=== PATIENT | male | born 1960 | race Caucasian/White ===

== ENCOUNTER 2020-07-19 08:21 | Outpatient (REF) | payer OTHER, SELFPAY ==
[2020-07-19 09:24] LABS: MANUAL DIFF FLAG NO
[2020-07-19 09:50] LABS: Basophils Absolute Auto 0.1 X10*3/uL (0.0-0.2); Basophils Percent Auto 1.5 % (0-2); Eosinophils Absolute Auto 0.2 X10*3/uL (0.0-0.4); Eosinophils Percent Auto 3.4 % (0-4); Hematocrit 41.7 % (42-52); Hemoglobin 13.4 g/dl (14.0-18.0); Imm Gran Abs Auto 0.01 X10*3/uL (0.00-0.03); Imm Gran Pct Auto 0.2 % (0.0-0.4); Lymphocytes Absolute Auto 1.6 X10*3/uL (1.2-4.9); Lymphocytes Percent Auto 34.5 % (20-40); Mean Corpuscular HGB Conc 32.1 g/dl (31.0-36.0); Mean Corpuscular Hemoglobin 29.4 pg (27.0-33.0); Mean Corpuscular Volume 91.4 fL (80-98); Mean Platelet Volume 9.9 fL (9.4-12.4); Monocytes Absolute Auto 0.4 X10*3/uL (0.1-1.2); Monocytes Percent Auto 7.4 % (2-11); Neutrophils Absolute Auto 2.5 X10*3/uL (2.0-8.3); Platelet Count 196 X10*3/uL (160-400); Red Blood Count 4.56 X10*6/uL (4.60-5.80); Red Cell Distribution Width 13.4 % (11.0-16.0); White Blood Count 4.7 X10*3/uL (4.8-10.8)
[2020-07-19 10:19] LABS: Alanine Aminotransferase 25 U/L (0-40); Albumin Level 4.4 g/dL (3.5-5.0); Alkaline Phosphatase 151 U/L (39-117); Anion Gap 11 (12-20); Aspartate Amino Transferase 25 U/L (5-37); Bilirubin Total 0.4 mg/dL (0.0-1.0); Blood Urea Nitrogen 10 mg/dL (9-16); Calcium 8.7 mg/dL (8.4-10.2); Carbon Dioxide 25 mmol/L (22-29); Chloride 106 mmol/L (96-108); Cholesterol 153 mg/dL; Estimated Glomerular Filt Rate > 60; Glucose Fasting 99 mg/dL (60-99); HDL Cholesterol 31 mg/dL; LDL Cholesterol Calculated 74 mg/dl; Potassium 4.3 mmol/l (3.3-5.1); Sodium 138 mmol/L (135-145); Triglycerides 242 mg/dL
[2020-07-19 10:31] LABS: Thyroid Stimulating Hormone 0.84 mIU/mL (0.32-4.0)
== END 2020-07-19 08:22 | disposition home or self-care (01) ==
LOC: HO.LAB 08:21
PROVIDERS: PCP Internal Medicine; Visit Provider Internal Medicine
DX: I10 Essential (primary) hypertension (principal); E78.00 Pure hypercholesterolemia, unspecified; E03.9 Hypothyroidism, unspecified; M72.2 Plantar fascial fibromatosis
CPT/HCPCS: 36415; 80053; 80061; 84443; 85025

== ENCOUNTER 2020-08-29 15:02 | Outpatient (REF) | payer SELFPAY ==
[2020-08-29 15:46] LABS: Cholesterol 205 mg/dL
[2020-08-29 16:06] LABS: SARS COV2 IgG Negative (Negative)
== END 2020-08-29 15:03 | disposition home or self-care (01) ==
LOC: HO.LNC 15:02
PROVIDERS: Visit Provider Pathology Anatomic Pathology & Clinical Pathology
DX: Z20.828 Contact with and (suspected) exposure to other viral communicable diseases (principal); E78.00 Pure hypercholesterolemia, unspecified
CPT/HCPCS: 82465; 86769

== ENCOUNTER 2021-05-09 08:53 | Outpatient (REF) | payer OTHER, SELFPAY ==
[2021-05-09 09:49] LABS: MANUAL DIFF FLAG NO
[2021-05-09 10:13] LABS: Alanine Aminotransferase 30 U/L (0-40); Albumin Level 4.4 g/dL (3.5-5.0); Alkaline Phosphatase 152 U/L (39-117); Anion Gap 15 (12-20); Aspartate Amino Transferase 26 U/L (5-37); Bilirubin Total 0.3 mg/dL (0.0-1.0); Blood Urea Nitrogen 18 mg/dL (9-16); Calcium 9.3 mg/dL (8.4-10.2); Carbon Dioxide 22 mmol/L (22-29); Chloride 108 mmol/L (96-108); Cholesterol 180 mg/dL; Estimated Glomerular Filt Rate 57; Glucose Fasting 104 mg/dL (60-99); HDL Cholesterol 35 mg/dL; LDL Cholesterol Calculated 108 mg/dl; Potassium 4.5 mmol/L (3.3-5.1); Sodium 140 mmol/L (135-145); Total Protein 7.4 g/dL (6.5-8.0); Triglycerides 186 mg/dL
[2021-05-09 10:29] LABS: Basophils Absolute Auto 0.1 X10*3/uL (0.0-0.2); Basophils Percent Auto 1.5 % (0-2); Eosinophils Absolute Auto 0.2 X10*3/uL (0.0-0.4); Eosinophils Percent Auto 3.5 % (0-4); Hematocrit 41.3 % (42-52); Hemoglobin 13.3 g/dl (14.0-18.0); Imm Gran Abs Auto 0.03 X10*3/uL (0.00-0.03); Imm Gran Pct Auto 0.6 % (0.0-0.4); Lymphocytes Absolute Auto 1.8 X10*3/uL (1.2-4.9); Lymphocytes Percent Auto 32.2 % (20-40); Mean Corpuscular HGB Conc 32.2 g/dl (31.0-36.0); Mean Corpuscular Hemoglobin 29.5 pg (27.0-33.0); Mean Corpuscular Volume 91.6 fL (80-98); Mean Platelet Volume 10.2 fL (9.4-12.4); Monocytes Absolute Auto 0.4 X10*3/uL (0.1-1.2); Monocytes Percent Auto 7.7 % (2-11); Neutrophils Percent Auto 54.5 % (45-73); Platelet Count 234 X10*3/uL (160-400); Red Blood Count 4.51 X10*6/uL (4.60-5.80); Red Cell Distribution Width 13.6 % (11.0-16.0); White Blood Count 5.4 X10*3/uL (4.8-10.8)
[2021-05-09 10:36] LABS: Thyroid Stimulating Hormone 1.72 uIU/mL (0.32-4.0); Vitamin D 25-OH Total 36.8 ng/mL (>30)
[2021-05-11 13:01] LABS: Free Prostate Spec Ag 0.5 ng/mL; Percent Free Prostate Spec Ag 17 % (calc) (>25); Prostate Specific Ag Total 2.9 ng/mL (< OR = 4.0)
== END 2021-05-09 08:54 | disposition home or self-care (01) ==
LOC: HO.LAB 08:53
PROVIDERS: PCP Internal Medicine; Visit Provider Internal Medicine
DX: I10 Essential (primary) hypertension (principal); E78.00 Pure hypercholesterolemia, unspecified; E03.9 Hypothyroidism, unspecified; Z12.5 Encounter for screening for malignant neoplasm of prostate
CPT/HCPCS: 36415; 80053; 80061; 82306; 84154; 84443; 85025

== ENCOUNTER 2022-02-06 10:10 | Outpatient (REF) | payer OTHER, SELFPAY ==
[2022-02-06 10:33] LABS: MANUAL DIFF FLAG NO
[2022-02-06 11:02] LABS: Basophils Absolute Auto 0.1 X10*3/uL (0.0-0.2); Basophils Percent Auto 2.2 % (0-2); Eosinophils Absolute Auto 0.3 X10*3/uL (0.0-0.4); Eosinophils Percent Auto 5.5 % (0-4); Hematocrit 42.7 % (42.0-52.0); Hemoglobin 13.6 g/dl (14.0-18.0); Imm Gran Abs Auto 0.03 X10*3/uL (0.00-0.03); Imm Gran Pct Auto 0.5 % (0.0-0.4); Lymphocytes Percent Auto 34.1 % (20-40); Mean Corpuscular HGB Conc 31.9 g/dl (31.0-36.0); Mean Corpuscular Hemoglobin 28.7 pg (27.0-33.0); Mean Corpuscular Volume 90.1 fL (80.0-98.0); Mean Platelet Volume 9.9 fL (9.4-12.4); Monocytes Absolute Auto 0.5 X10*3/uL (0.1-1.2); Monocytes Percent Auto 7.8 % (2-11); Neutrophils Absolute Auto 2.9 x10*3/uL (2.0-8.3); Neutrophils Percent Auto 49.9 % (45-73); Platelet Count 247 X10*3/uL (160-400); Red Blood Count 4.74 X10*6/uL (4.60-5.80); White Blood Count 5.9 X10*3/uL (4.8-10.8)
[2022-02-06 11:16] LABS: Alanine Aminotransferase 22 U/L (0-40); Albumin Level 4.3 g/dL (3.5-5.0); Alkaline Phosphatase 154 U/L (39-117); Anion Gap 14 (12-20); Aspartate Amino Transferase 20 U/L (5-37); Bilirubin Total 0.3 mg/dL (0.0-1.0); Blood Urea Nitrogen 20 mg/dL (9-16); Calcium 9.5 mg/dL (8.4-10.2); Carbon Dioxide 21 mmol/L (22-29); Chloride 109 mmol/L (96-108); Cholesterol 191 mg/dL; Estimated Glomerular Filt Rate 59; Glucose Fasting 108 mg/dL (60-99); HDL Cholesterol 41 mg/dL; LDL Cholesterol Calculated 120 mg/dl; Potassium 4.6 mmol/L (3.3-5.1); Sodium 139 mmol/L (135-145); Total Protein 7.3 g/dL (6.5-8.0); Triglycerides 151 mg/dL
[2022-02-06 11:38] LABS: Thyroid Stimulating Hormone 4.63 uIU/mL (0.32-4.0)
[2022-02-06 12:01] LABS: Vitamin D 25-OH Total 37.1 ng/mL (>30)
== END 2022-02-06 10:11 | disposition home or self-care (01) ==
LOC: HO.LAB 10:10
PROVIDERS: PCP Internal Medicine; Visit Provider Internal Medicine
DX: I10 Essential (primary) hypertension (principal); E78.00 Pure hypercholesterolemia, unspecified; E03.9 Hypothyroidism, unspecified
CPT/HCPCS: 36415; 80053; 80061; 82306; 84443; 85025

== ENCOUNTER 2022-06-18 14:31 | Outpatient (REF) | payer OTHER, SELFPAY ==
--- NOTE | ~2022-06-18 | CT_ITS ---
EXAMINATION: CT MAXILLOFACIAL WITHOUT CONTRAST CLINICAL INFORMATION: Sleep apnea. Sinus polyps. COMPARISON: None available. TECHNIQUE: Multidetector helical imaging was performed in the axial plane with generation of coronal and sagittal reformatted images. This CT examination was performed using dose optimization techniques as appropriate, variously including the following: *Automated exposure control. *Adjustment of mA and/or kV according to patient size (this includes techniques or standardized protocols for targeted exams where dose is matched to indication/reason for exam; i.e. extremities or head). *Use of iterative reconstruction technique. DLP: 126 mGy-cm FINDINGS: FRONTAL SINUSES AND DRAINAGE PATHWAYS: The frontal sinuses are clear. The frontoethmoidal recesses are partially opacified but patent. MAXILLARY SINUSES AND DRAINAGE PATHWAYS: Mild mucosal thickening of the paranasal sinuses. Small mucous retention cyst within the right maxillary sinus. The maxillary ostia and infundibula are patent. ETHMOID SINUSES: Mild mucosal thickening of the ethmoid air cells. The ethmoid roofs appear symmetric and intact. SPHENOID SINUS AND DRAINAGE PATHWAYS: The sphenoid sinus is clear. The sphenoethmoidal recesses are patent. NASAL PASSAGE: Mild mucosal thickening of the nasal passages. Minimal rightward nasal septal deviation. ADDITIONAL RELEVANT FINDINGS: The lamina papyracea are intact. No demonstrated abnormalities of the orbits. The carotid canals are normally covered by bone. No significant maxillary periapical disease. The temporomandibular joints are normal. The mastoid air cells and middle ear cavities remain well aerated. Limited evaluation of the intracranial structures without significant abnormalities. CT/CT sinus wo IV con IMPRESSION: 1. Mild sinonasal mucosal disease. 2. Minimal rightward nasal septal deviation.
== END 2022-06-18 14:32 | disposition home or self-care (01) ==
LOC: HO.CT 14:31
PROVIDERS: Visit Provider Otolaryngology
DX: J33.8 Other polyp of sinus (principal); G47.30 Sleep apnea, unspecified
CPT/HCPCS: 70486

== ENCOUNTER 2023-01-01 08:28 | Outpatient (REF) | payer OTHER, SELFPAY ==
[2023-01-01 08:49] LABS: MANUAL DIFF FLAG NO
[2023-01-01 09:18] LABS: Basophils Absolute Auto 0.1 X10*3/uL (0.0-0.2); Basophils Percent Auto 1.4 % (0-2); Eosinophils Absolute Auto 0.2 X10*3/uL (0.0-0.4); Eosinophils Percent Auto 3.4 % (0-4); Hematocrit 41.4 % (42.0-52.0); Hemoglobin 13.4 g/dl (14.0-18.0); Imm Gran Abs Auto 0.03 X10*3/uL (0.00-0.03); Imm Gran Pct Auto 0.5 % (0.0-0.4); Lymphocytes Absolute Auto 1.9 X10*3/uL (1.2-4.9); Lymphocytes Percent Auto 34.8 % (20-40); Mean Corpuscular HGB Conc 32.4 g/dl (31.0-36.0); Mean Corpuscular Hemoglobin 29.5 pg (27.0-33.0); Mean Platelet Volume 9.5 fL (9.4-12.4); Monocytes Absolute Auto 0.4 X10*3/uL (0.1-1.2); Monocytes Percent Auto 7.7 % (2-11); Neutrophils Absolute Auto 2.9 x10*3/uL (2.0-8.3); Neutrophils Percent Auto 52.2 % (45-73); Platelet Count 210 X10*3/uL (160-400); Red Blood Count 4.55 X10*6/uL (4.60-5.80); Red Cell Distribution Width 13.7 % (11.0-16.0); White Blood Count 5.6 X10*3/uL (4.8-10.8)
[2023-01-01 09:22] LABS: Appearance Urine Clear; Color Urine Yellow; Glucose Urine UA Negative (Negative); Leukocyte Esterase Urine Moderate (2+) (Negative); Nitrite Urine Negative (Negative); Specific Gravity - Urine 1.015 (1.005-1.025); UMIC TRIGGER UA YES; Urine Blood Negative (Negative); Urine Ketones Negative (Negative); Urine Protein Negative (Neg-Trace)
[2023-01-01 09:27] LABS: Bacteria Urine None Seen (None Seen); Hyaline Casts Urine 0-2 /LPF (0-2); RBC Urine 0-2 /HPF (0-2); Squamous Epithelial Cell Urine 0-2 /HPF (0-2)
[2023-01-01 10:22] LABS: Thyroid Stimulating Hormone 2.02 uIU/mL (0.32-4.0)
[2023-01-01 10:28] LABS: Alanine Aminotransferase 36 U/L (0-40); Albumin Level 4.3 g/dL (3.5-5.0); Alkaline Phosphatase 141 U/L (39-117); Anion Gap 15 (12-20); Aspartate Amino Transferase 33 U/L (5-37); Bilirubin Total 0.5 mg/dL (0.0-1.0); Blood Urea Nitrogen 15 mg/dL (9-16); Calcium 9.4 mg/dL (8.4-10.2); Carbon Dioxide 27 mmol/L (22-29); Chloride 105 mmol/L (96-108); Cholesterol 162 mg/dL; Estimated Glomerular Filt Rate 54; Glucose Fasting 112 mg/dL (60-99); HDL Cholesterol 29 mg/dL; LDL Cholesterol Calculated 84 mg/dl; Potassium 4.5 mmol/L (3.3-5.1); Sodium 142 mmol/L (135-145); Total Protein 7.1 g/dL (6.5-8.0); Triglycerides 249 mg/dL
[2023-01-03 12:33] LABS: Free Prostate Spec Ag 0.9 ng/mL; Percent Free Prostate Spec Ag 23 % (calc) (>25)
== END 2023-01-01 08:29 | disposition home or self-care (01) ==
LOC: HO.LAB 08:28
PROVIDERS: PCP Internal Medicine; Visit Provider Internal Medicine
DX: Z00.00 Encounter for general adult medical examination without abnormal findings (principal); I10 Essential (primary) hypertension; E78.00 Pure hypercholesterolemia, unspecified; E03.9 Hypothyroidism, unspecified
CPT/HCPCS: 36415; 80053; 80061; 81001; 84154; 84443; 85025

== ENCOUNTER 2023-03-01 07:37 | Outpatient (REF) | payer OTHER, SELFPAY ==
--- NOTE | ~2023-03-01 | XR_ITS ---
EXAMINATION: XR HAND, RIGHT CLINICAL INFORMATION: Pain COMPARISON: None available. TECHNIQUE: PA, lateral, and oblique views of the right hand. FINDINGS: No acute fracture or dislocation. Mild degenerative changes of the wrist with subchondral cystic change in the distal ulna. Soft tissues are unremarkable. XR/XR hand RT min 3V IMPRESSION: Mild degenerative changes of the wrist.
== END 2023-03-01 07:38 | disposition home or self-care (01) ==
LOC: HO.HOSX 07:37
PROVIDERS: Visit Provider Orthopaedic Surgery
DX: M79.641 Pain in right hand (principal); R20.0 Anesthesia of skin
CPT/HCPCS: 73130

== ENCOUNTER 2023-03-02 09:28 | Outpatient (REF) | payer OTHER, SELFPAY ==
--- NOTE | 2023-03-02 09:34 | EMG_ITS ---
Please see scanned EMG / Nerve Conduction Report. MTDD
== END 2023-03-02 09:29 | disposition home or self-care (01) ==
LOC: HO.NEURO 09:28
PROVIDERS: PCP Internal Medicine; Visit Provider Orthopaedic Surgery
DX: R20.0 Anesthesia of skin (principal)
CPT/HCPCS: 95885; 95910

== ENCOUNTER 2023-04-12 13:23 | Outpatient (AMB) | payer OTHER, SELFPAY ==
--- NOTE | 2023-04-12 13:26 | A.OFFVIS_ITS ---
Intake Vital Signs 04/12/23 13:34 Height 5 ft 10 in Weight 310 lb BMI 44.5 Intake Visit Reasons: OV- EMG review B/L Intake Note: Guille a 63 year old right hand dominant male presents today for an EMG review of right hand. Patient reports no change in symptoms, he states pain starts in small finger that radiates down to his elbow. Weakness with pinching and gripping. Allergies bee pollen [BEE STINGS] Allergy (Severe, Unverified 04/12/23 13:27) SWELLING LOBSTER Allergy (Severe, Uncoded 04/12/23 13:27) SWELLING HPI OV- EMG review B/L HPI Details Guille is a 63 year old right hand dominant man who presents for a NCS review of his right hand numbness He continues to have pain & numbness in the ulnar aspect of his right arm, extending from his elbow down into his wrist, hand, and small finger. He denies any numbness in the other fingers. He says he either experiences dense numbness or pain in the same areas. He also complains of weakness in his hand with pinch ing and gripping activities. He says this began when he contracted COVID in 08/2022.? PENDING SALE TO [facility] Medical History High cholesterol Hypertension Thyroid condition Social History Patient Tobacco Use Status: Never used Tobacco Current occupational status: retired Current occupation: right hand dominant Physical Exam Vital Signs: BMI result Body Mass Index 44.5 Extrem Other: Evaluation of Right Upper Extremity: The patient is alert, oriented, and in no acute distress Neuro: Dense numbness in the small finger, ulnar half of the ring finger, ulnar half of the hand up to the wrist No thenar or intrinsic wasting Good APB muscle belly firing and good finger cross - Tinel's sign at the elbow Good ABduction & ADduction Vascular: Cap refill brisk ROM: He can make a fist and extend all his digits Nerve Conduction Study Impression: Moderately severe ulnar neuropathy on the right, with demylinative features but no major axonal loss Dr. Cutler 03/02/23 Assessment & Plan Assessment & Plan (1) Cubital tunnel syndrome on right: Code(s): G56.21 - Lesion of ulnar nerve, right upper limb Plan Assessment & Plan: 1. Right Cubital tunnel syndrome, moderate-severe Dense numbness in the small finger, ulnar half of the ring finger, ulnar half of the hand & wrist Normal sensation in the median nerve distribution Since about August 2022 The risks and benefits of operative treatment were discussed with the patient and the patient wishes to proceed with surgery. These risks include, but are not limited to risk of damage to blood vessels, nerves, tendons, infection, recurrence, incomplete relief of preoperative symptoms, persistent pain, possible need for further surgery and the risks associated with regional blocks and anesthesia. The plan is to take the patient to the operating room sometime in the next few weeks for the following procedures: 1. Right cubital tunnel release vs transposition, under general All of the preoperative paperwork including the consent was filled out today. All the patient's questions were answered. The patient understands that they will be contacted by our terminal operations supervisor soon to schedule this procedure He denies Diabetes, blood thinners, asthma, heart, lung, kidney issues Scribed for Raysa Alvarado MD by Keenan Perez, adjunct faculty for medical terminology, on 04/12/23 at 1:50 PM, EST. Coding Level of Care Code Est Pt Level 4 (50831) Diagnoses Cubital tunnel syndrome on right G56.21
[2023-04-12 13:34] VITALS: BMI 44.5
== END 2023-04-12 14:24 | disposition home or self-care (01) ==
PROVIDERS: PCP Internal Medicine; Visit Provider Orthopaedic Surgery
DX: G56.21 Lesion of ulnar nerve, right upper limb (principal)
CPT/HCPCS: 99214

== ENCOUNTER → 2023-04-12 13:23 | Outpatient (BNVA) | payer OTHER, SELFPAY | PROVIDERS: PCP Internal Medicine; Visit Provider Orthopaedic Surgery ==

== ENCOUNTER → 2023-04-25 06:06 | Day surgery (SDC) | payer OTHER, SELFPAY ==
[2023-04-20 14:21] VITALS: BMI 44.5
--- NOTE | 2023-04-22 09:23 | HO.ANESPROP2 ---
Documented by User: Annmarie Birmingham NP 04/22/23 09:27 HPI - Anesthesia Eval Consult details Narrative: 63yo M for Right Cubital Tunnel Release vs transposition PMFSH Active Problems Active Problems: All Active Problems (Updated 04/20/23 @ 14:21 by Denise Harris RN) Numbness of right hand (Acute) Cubital tunnel syndrome on right (Acute) Past Medical History Medical History High cholesterol History of COVID-19 Hypertension Hypothyroid Migraine Sleep apnea Surgical History Surgical History H/O colonoscopy History of esophagogastroduodenoscopy (EGD) Hx of right inguinal hernia repair Social History Social History Patient Tobacco Use Status: Never used Tobacco Second Hand Smoke Exposure: No Use of substances other than those prescribed or required for medical reasons: No Are you DNR?: No Advance Directives: No Advance Directives Information Provided: Yes Advance Directives on File: No Current occupational status: retired Current occupation: right hand dominant Meds Allergies Allergy/AdvReac Type Severity Reaction Status Date / Time bee pollen [BEE STINGS] Allergy Severe SWELLING Verified 04/25/23 07:11 lobster Allergy Severe Swelling Verified 04/25/23 07:11 Home Medications Medication Instructions Recorded Confirmed Last Taken Type aspirin 81 mg tablet,delayed 81 mg PO DAILY 03/01/23 04/20/23 04/18/23 History release (Adult Low Dose Aspirin) atorvastatin 80 mg tablet 80 mg PO DAILY 03/01/23 04/20/23 04/24/23 History mnxsmaciyo-wrmcsandkynfl-lyzwimvv 1 tab PO QID PRN Migraine Headache 03/01/23 04/20/23 04/04/23 History 50 mg-325 mg-40 mg tablet chlorthalidone 50 mg tablet 50 mg PO QAM 03/01/23 04/20/23 04/24/23 History diltiazem HCl 300 mg capsule,24 300 mg PO DAILY 03/01/23 04/20/23 04/25/23 History hr,extended release (Tiadylt ER) fexofenadine 180 mg tablet 180 mg PO DAILY 03/01/23 04/20/2323 History (Allergy Relief (fexofenadine)) gemfibrozil 600 mg tablet 600 mg PO BID 03/01/23 04/20/23 04/24/23 History levothyroxine 150 mcg tablet 150 mcg PO QAM 03/01/23 04/20/23 04/25/23 History lisinopril 40 mg tablet 40 mg PO DAILY 03/01/23 04/20/23 04/24/23 History mometasone 50 mcg/actuation nasal 2 spray intranasal BID 03/01/23 04/20/23 04/24/23 History spray propranolol 60 mg capsule,24 60 mg PO DAILY 03/01/23 04/20/23 04/25/23 History hr,extended release topiramate 50 mg tablet 50 mg PO BID 03/01/23 04/20/23 04/25/23 History Exam Exam Date and Time: April 22, 2023922 Height,Weight and Vital Signs: Height 5 ft 10 in Weight 140.614 kg Pertinent Lab Results Pertinent Lab Results: Laboratory Tests 01/01/23 01/01/23 08:48 08:48 WBC 5.6 Hgb 13.4 L Hct 41.4 L Plt Count 210 Sodium 142 Potassium 4.5 Chloride 105 Carbon Dioxide 27 BUN 15 Creatinine 1.33 Assessment and Plan Assessment Anesthesia Assessment: Chart Reviewed Documented by User: Serena Barragan MD 04/25/23 08:20 PMFSH Past Medical History Medical History High cholesterol History of COVID-19 Hypertension Hypothyroid Migraine Sleep apnea Family History Family history of problems with anesthesia: No Surgical History Surgical History H/O colonoscopy History of esophagogastroduodenoscopy (EGD) Hx of right inguinal hernia repair History of Problems with Anesthesia: Unobtainable Social History Social History Patient Tobacco Use Status: Never used Tobacco Second Hand Smoke Exposure: No Use of substances other than those prescribed or required for medical reasons: No Are you DNR?: No Advance Directives: No Advance Directives Information Provided: Yes Advance Directives on File: No Current occupational status: retired Current occupation: right hand dominant Meds Allergies Allergy/AdvReac Type Severity Reaction Status Date / Time bee pollen [BEE STINGS] Allergy Severe SWELLING Verified 04/25/23 07:11 lobster Allergy Severe Swelling Verified 04/25/23 07:11 Home Medications Medication Instructions Recorded Confirmed Last Taken Type aspirin 81 mg tablet,delayed 81 mg PO DAILY 03/01/23 04/20/23 04/18/23 History release (Adult Low Dose Aspirin) atorvastatin 80 mg tablet 80 mg PO DAILY 03/01/23 04/20/23 04/24/23 History uxhrwsnwby-dfkvleecimjsx-wcamucyx 1 tab PO QID PRN Migraine Headache 03/01/23 04/20/23 04/04/23 History 50 mg-325 mg-40 mg tablet chlorthalidone 50 mg tablet 50 mg PO QAM 03/01/23 04/20/23 04/24/23 History diltiazem HCl 300 mg capsule,24 300 mg PO DAILY 03/01/23 04/20/23 04/25/23 History hr,extended release (Tiadylt ER) fexofenadine 180 mg tablet 180 mg PO DAILY 03/01/23 04/20/23 04/24/23 History (Allergy Relief (fexofenadine)) gemfibrozil 600 mg tablet 600 mg PO BID 03/01/23 04/20/23 04/24/23 History levothyroxine 150 mcg tablet 150 mcg PO QAM 03/01/23 04/20/23 04/25/23 History lisinopril 40 mg tablet 40 mg PO DAILY 03/01/23 04/20/23 04/24/23 History mometasone 50 mcg/actuation nasal 2 spray intranasal BID 03/01/23 04/20/23 04/24/23 History spray propranolol 60 mg capsule,24 60 mg PO DAILY 03/01/23 04/20/23 04/25/23 History hr,extended release topiramate 50 mg tablet 50 mg PO BID 03/01/23 04/20/23 04/25/23 History Exam Airway Mallampati Class: III TM Dist: <=3cm Neck ROM: Limited Heart: rrr Lungs: cta Assessment and Plan Final Anesthetic Review Family History of Problems with Anesthesia: No History of Problems with Anesthesia: Unobtainable ASA Class: III and IV Patient Risk: High Procedure Risk: Low Anesthetic Plan Anesthetic Plan: GA (pt has orthopnea worse past 2 months. cannot breath unless he is sitting completely upright, unable to use CPAP due to SOB , bilateral pedal edema with ulcers , ot supermorbidly obese . he will return after cardiac work up . currentlt no work up done)
[2023-04-25 07:10] VITALS: BP 144/80; PULSE 71; RESP 20; TEMP 36.9; O2SAT 99
[2023-04-25] MEDS: Lactated Ringers 1,000 ML 100 ML IVCONT (07:11)
--- NOTE | 2023-04-25 08:06 | PC.NURSE ---
patient stated he has been having trouble breathing while laying flat at night even with use of CPAP. patient needs to be sitting upright to sleep. Anesthesia at bedside to evaluate. Dr. Alvarado also at bedside. per MD's patient to be rescheduled at this time. patient and aware.
== END ==
LOC: HO.SSS 06:07
PROVIDERS: PCP Internal Medicine; Visit Provider Orthopaedic Surgery
DX: G56.21 Lesion of ulnar nerve, right upper limb (principal); Z53.8 Procedure and treatment not carried out for other reasons; G47.33 Obstructive sleep apnea (adult) (pediatric)
CPT/HCPCS: J0690

== ENCOUNTER 2023-09-05 11:31 | Outpatient (REF) | payer OTHER, SELFPAY ==
[2023-09-05 11:52] LABS: MANUAL DIFF FLAG NO
[2023-09-05 12:37] LABS: Basophils Absolute Auto 0.1 X10*3/uL (0.0-0.2); Basophils Percent Auto 1.3 % (0-2); Eosinophils Absolute Auto 0.2 X10*3/uL (0.0-0.4); Hematocrit 41.1 % (42.0-52.0); Hemoglobin 12.9 g/dl (14.0-18.0); Imm Gran Abs Auto 0.05 X10*3/uL (0.00-0.03); Imm Gran Pct Auto 0.7 % (0.0-0.4); Lymphocytes Absolute Auto 1.8 X10*3/uL (1.2-4.9); Lymphocytes Percent Auto 27.2 % (20-40); Mean Corpuscular HGB Conc 31.4 g/dl (31.0-36.0); Mean Corpuscular Hemoglobin 28.7 pg (27.0-33.0); Mean Corpuscular Volume 91.5 fL (80.0-98.0); Mean Platelet Volume 9.6 fL (9.4-12.4); Monocytes Absolute Auto 0.7 X10*3/uL (0.1-1.2); Monocytes Percent Auto 9.9 % (2-11); Neutrophils Absolute Auto 3.9 x10*3/uL (2.0-8.3); Neutrophils Percent Auto 57.9 % (45-73); Platelet Count 240 X10*3/uL (160-400); Red Blood Count 4.49 X10*6/uL (4.60-5.80); Red Cell Distribution Width 15.2 % (11.0-16.0); White Blood Count 6.7 X10*3/uL (4.8-10.8)
[2023-09-05 13:23] LABS: Alanine Aminotransferase 17 U/L (0-40); Albumin Level 4.1 g/dL (3.5-5.0); Alkaline Phosphatase 127 U/L (39-117); Anion Gap 12 (12-20); Aspartate Amino Transferase 18 U/L (5-37); Bilirubin Total 0.2 mg/dL (0.0-1.0); Blood Urea Nitrogen 32 mg/dL (9-16); Calcium 9.7 mg/dL (8.4-10.2); Carbon Dioxide 28 mmol/L (22-29); Chloride 105 mmol/L (96-108); Estimated Glomerular Filt Rate 48; Glucose Random 99 mg/dL (60-115); Potassium 3.8 mmol/L (3.3-5.1); Sodium 141 mmol/L (135-145); Total Protein 7.5 g/dL (6.5-8.0)
== END 2023-09-05 11:32 | disposition home or self-care (01) ==
LOC: HO.LAB 11:31
PROVIDERS: PCP Internal Medicine; Visit Provider Internal Medicine
DX: I10 Essential (primary) hypertension (principal)
CPT/HCPCS: 36415; 80053; 85025

== ENCOUNTER 2023-09-15 13:47 | Outpatient (AMB) | payer OTHER, SELFPAY ==
[2023-09-15 13:55] VITALS: BP 118/74; PULSE 67; O2SAT 99; BMI 45.4
--- NOTE | 2023-09-15 13:55 | A.OFFVIS_ITS ---
Intake Vital Signs 09/15/23 13:55 Height 5 ft 10 in Weight 316 lb 5.813 oz BMI 45.4 BP 118/74 Blood Pressure Location Lt brachial Position Sitting Pulse 67 Pulse Source Pulse Oximeter Pulse Oximetry (%) 99 Oxygen Delivery Method Room Air Intake Visit Reasons: Obstructive sleep apnea Intake Note: pt is here as a new patient, he is being worked up on why he cannot breath, mostly at night, and some short of breath with walking. He feels like he is being smothered on the inside. Melter Helper Required: No Allergies bee pollen [BEE STINGS] Allergy (Severe, Verified 09/15/23 14:38) SWELLING lobster Allergy (Severe, Verified 09/15/23 14:38) Swelling Medication List - Last Reconciled 09/15/23 by Rafael Goodwin MD aspirin (Adult Low Dose Aspirin) 81 mg PO DAILY atorvastatin 80 mg PO DAILY tiduikoxdl-yissuveglsqwk-vwwl 50-325-40 mg 1 tab PO QID PRN cholecalciferol (vitamin D3) 25 mcg PO DAILY diltiazem HCl ER (Tiadylt ER) 300 mg PO DAILY fexofenadine (Allergy Relief (fexofenadine)) 180 mg PO DAILY furosemide 40 mg PO DAILY gemfibrozil 600 mg PO BID levothyroxine 150 mcg PO QAM lisinopril 40 mg PO DAILY mometasone 50 mcg/actuation 2 sprays intranasal BID mometasone-formoterol 50-5 mcg/actuation 2 puffs inhalation Q12H omega 3-oyj-mfp-fish oil 100-160-1,000 mg (Fish Oil) caps PO propranolol ER 60 mg PO DAILY topiramate 50 mg PO BID Do you need a note to return to daycare/school/sports/work: No HPI Obstructive sleep apnea HPI Details THIS GENTLEMAN IS 63 YEARS OLD MORBIDLY OBESE, PREVIOUSLY KNOWN TO HAVE SEVERE OBSTRUCTIVE SLEEP APNEA. HE USED CPAP FOR 6-8 YEARS AND THEN, HE FELT CONGESTED IN THE CHEST TO THE POINT THAT HE COULD NOT TOLERATE THE CPAP. NOW HE HAS NOT USE THE CPAP FOR THE LAST 3 YEARS OR SO. HE CANNOT SLEEP FLAT, HE IS SLEEPING IN A CHAIR. HE DOES REMAINED TIRED DURING THE DAYTIME THOUGH HE IS MINIMIZING HIS COMPLAINT OF DAYTIME SLEEPINESS. HE REMAINS MORBIDLY OBESE, HE CANNOT DO ANY EXERCISE BECAUSE HE HAS SEVERE LYMPHEDEMA AND STASIS EDEMA OF THE LOWER EXTREMITIES. HE HAS A HUGE BELLY, AND ON ACCOUNT OF THAT HE IS NOT ABLE TO DO MUCH EXERCISE. HE HAS BEEN REFERRED TO SEE ME FOR HELPING HIM. 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 HE SPENDING MOST OF THE DAY AT HOME, SITTING IN THE CHAIR. HE HAS DEVELOPED LOT OF STASIS EDEMA AND LYMPHEDEMA, WITH SOME ULCERATIONS. HE HAS BEEN TREATED AT THE WOUND CLINIC ULCERS HAVE HEALED AND NOW HE USES [facility]ANDAGES FOR COMPRESSION. HE HAD A ECHOCARDIOGRAM AT [facility] THE RESULTS ARE NOT SIGNIFICANT. IT SEEMS TO BE BASICALLY WITHIN NORMAL LIMITS. HE DENIES ANY WHEEZING OR COUGH BUT I DO SUSPECT THAT HE HAS SIGNIFICANT RESTRICTIVE PULMONARY DISORDER [facility] Medical History (Updated 09/15/23 @ 16:50 by Rafael Goodwin MD) Restrictive lung disease MAXI (obstructive sleep apnea) Morbid obesity Sleep apnea History of COVID-19 Migraine Hypothyroid High cholesterol Hypertension Surgical History Hx of right inguinal hernia repair History of esophagogastroduodenoscopy (EGD) H/O colonoscopy Social History Patient Tobacco Use Status: Never used Tobacco Second Hand Smoke Exposure: No Current occupational status: retired Current occupation: right hand dominant Review of Systems Const All systems reviewed & are unremarkable except as noted in HPI and below Eyes Reports no additional complaints ENT Reports nasal congestion and Reports nasal discharge Card Denies chest pain, Denies syncope, Denies irregular heart rhythm, Reports leg ulcers and Reports leg edema Resp Reports as per HPI GI Reports no additional complaints Reports no additional complaints Musc Reports limited range of motion Skin/Breast Reports system reviewed and no additional complaints, except as documented Neuro Reports no additional complaints and Denies syncope Psych Reports no additional complaints Physical Exam Vital Signs: Last Vital Signs Pulse 67 09/15/23 13:55 BP 118/74 09/15/23 13:55 Pulse Ox 99 09/15/23 13:55 Oxygen Delivery Method Room Air 09/15/23 13:55 BMI result Body Mass Index 45.4 This gentleman is morbidly obese with a round face, Sitting upright. Const General: comfortable, no acute distress, alert and awake Orientation/consciousness: patient oriented x3 HEENT Head: Yes normal to inspection General nose exam: No nasal polyps present and No nasal discharge present Face and sinus: Yes sinuses nontender Mouth: oropharynx abnormals (He has very crowded and narrow oropharynx, Mallampati class 4) Throat: Yes posterior oropharynx normal Eyes General: appearance normal, both eyes and all related structures Neck Other: Neck is very obese Neck: Yes normal visual inspection, Yes no lymphadenopathy, Yes trachea midline, Yes no JVD and Yes other (Neck size 20 in) Thyroid: Thyroid normal Chest Chest palpation & inspection: normal inspection of the chest, normal palpation of entire chest wall and no tenderness Resp Other: Percussion note not perceptible because of says thick chest wall Breath sounds are markedly diminished over the lower lobes and especially over. the basilar areas No crepitations or wheezes Cardio Palpation: PMI not normal (Not palpable) Rate: regular rate Rhythm: regular rhythm GI Inspection: Yes other Palpation (GI): Soft to palpation, Tenderness to palpation present (GI), No hepatosplenomegaly present, Palpable mass present and Other GI palpation findings present (Abdomen is grossly obese and protuberant) Auscultation: normal bowel sounds Back/Spine/Pelvis Thoracic/Lumbar Spine: thoracic and lumbar spine normal to inspection and thoraco-lumbar ROM limited Skin General skin exam: no rashes or lesions noted Neuro General: patient oriented x3 and no focal motor deficits Cranial nerves: Yes CN's II-XII intact bilaterally Extrem General: Yes normal to inspection, Yes no calf tenderness and Yes edema (Has marked edema of both lower extremities. Currently dressed with bandage) Psych Appearance: grossly normal and well kempt Speech and movement: Normal speech and movement present Results Reviewed Results Reviewed: Echocardiogram performed at [facility] on 06/06/2023 LV ejection fraction 55-60. Wall thickness of the left ventricle is the slightly increased from before. No definite motion abnormality Assessment & Plan Assessment & Plan (1) Morbid obesity: Comment: Morbid obesity is evident. BMI 45.4. His obesity is predominantly abdominal. It prevents him from lying down flat. So he has been sleeping in the chair. Code(s): E66.01 - Morbid (severe) obesity due to excess calories Plan: Discussed with him, He is aware of his morbid obesity. He cannot join the weight management program. He is just trying to limit his calories intake. He is not able to do any exercise. (2) MAXI (obstructive sleep apnea): Comment: Patient has long-standing history of obstructive sleep apnea, Used CPAP for 6-8 years. He gave up using the CPAP about 3 years ago. Has a reason he states that he felt his lungs were congested and he could not use the CPAP anymore. Code(s): G47.33 - Obstructive sleep apnea (adult) (pediatric) Plan: I had a lengthy discussion with him and his . Without the use of CPAP his prognosis is extremely poor and exposes him to multiple medical problems. He must resort to using CPAP. For getting is CPAP device he would need an up to date sleep study which is being ordered. He is not able to sleep in the bed, he will have to do the study while sleeping in the chair. So instead of doing the sleep study in the sleep lab I have ordered HOME SLEEP STUDY . (3) Restrictive lung disease: Comment: Because of morbid obesity and especially abdominal obesity is a good candidate for restrictive lung disease. Code(s): J98.4 - Other disorders of lung Plan: Pulmonary function test is ordered. He is advised to try to do deep breathing exercises. Orders: Orders RT home sleep study Today E66.01 - Morbid (severe) obesity due to excess calories, G47.33 - Obstructive sleep apnea (adult) (pediatric) PFT pulmonary function test Today E66.01 - Morbid (severe) obesity due to ex cess calories, J98.4 - Other disorders of lung Coding Level of Care Code New Pt Level 4 (14445) Diagnoses Morbid obesity E66.01 MAXI (obstructive sleep apnea) G47.33 Restrictive lung disease J98.4
== END 2023-09-15 14:37 | disposition home or self-care (01) ==
PROVIDERS: PCP Internal Medicine; Referring Provider Internal Medicine; Visit Provider Internal Medicine
DX: E66.01 Morbid (severe) obesity due to excess calories (principal); G47.33 Obstructive sleep apnea (adult) (pediatric); J98.4 Other disorders of lung
CPT/HCPCS: 99204

== ENCOUNTER → 2023-09-15 13:47 | Outpatient (BNVA) | payer OTHER, SELFPAY | PROVIDERS: PCP Internal Medicine; Referring Provider Internal Medicine; Visit Provider Internal Medicine ==

== ENCOUNTER 2023-10-31 13:46 | Outpatient (REF) | payer OTHER, SELFPAY ==
[2023-10-31 08:23] VITALS: PULSE 80; RESP 14; O2SAT 16
--- NOTE | 2023-10-31 14:50 | PFT_ITS ---
Flows: FEV1: 79 % of predicted at 2.74 L FVC: 81 % of predicted at 3.63 L FEV1/FVC: 75 % Bronchodilator response: Present in small to medium airways only Volumes: Total lung capacity: 84 % of predicted at 6.02 L Residual volume: 88 % of predicted at 2.05 L Slow vital capacity: 81 % of predicted at 3.97 L Expiratory reserve volume: 47 % of predicted at 0.60 L Diffusion capacity: Normal Impression: No obstructive or restrictive ventilatory defect. Bronchodilator response present in small to medium airways only. Otherwise, essentially normal pulmonary function test. MTDD
== END 2023-10-31 13:47 | disposition home or self-care (01) ==
LOC: HO.RESP 13:46
PROVIDERS: PCP Internal Medicine; Visit Provider Internal Medicine
DX: J98.4 Other disorders of lung (principal); E66.01 Morbid (severe) obesity due to excess calories
CPT/HCPCS: 94010; 94640; 94727; 94729

== ENCOUNTER → 2023-10-31 13:47 | Outpatient (REF) | payer OTHER, SELFPAY | LOC: HO.SL 13:47 | PROVIDERS: PCP Internal Medicine; Visit Provider Internal Medicine | DX: G47.33 Obstructive sleep apnea (adult) (pediatric) (principal); E66.01 Morbid (severe) obesity due to excess calories | CPT/HCPCS: 95806 ==

== ENCOUNTER → 2023-10-31 15:01 | Outpatient (BNV) | payer OTHER, SELFPAY | PROVIDERS: PCP Internal Medicine; Visit Provider Internal Medicine | DX: R06.83 Snoring (principal) | CPT/HCPCS: 94060; 94727; 94729; 95806 ==

== ENCOUNTER 2023-11-15 14:15 | Outpatient (AMB) | payer OTHER, SELFPAY ==
[2023-11-15 14:27] VITALS: BP 110/70; PULSE 66; O2SAT 95; BMI 46.1
--- NOTE | 2023-11-15 14:27 | A.OFFVIS_ITS ---
Intake Vital Signs 11/15/23 14:27 Height 5 ft 10 in Weight 321 lb BMI 46.1 BP 110/70 Blood Pressure Location Lt brachial Position Sitting Pulse 66 Pulse Source Pulse Oximeter Pulse Oximetry (%) 95 Oxygen Delivery Method Room Air Intake Visit Reasons: Obstructive sleep apnea Intake Note: pt is here for follow up of pft and having little trouble breathing today and having a migraine today, (on medication) Reception Clerk Required: No Allergies bee pollen [BEE STINGS] Allergy (Severe, Verified 11/15/23 14:57) SWELLING lobster Allergy (Severe, Verified 11/15/23 14:57) Swelling Medication List - Last Reconciled 11/15/23 by Rafael Goodwin MD aspirin (Adult Low Dose Aspirin) 81 mg PO DAILY atorvastatin 80 mg PO DAILY jwzvdhckpx-myxkfagwtnmrk-kyhg 50-325-40 mg 1 tab PO QID PRN cholecalciferol (vitamin D3) 25 mcg PO DAILY diltiazem HCl ER (Tiadylt ER) 300 mg PO DAILY fexofenadine (Allergy Relief (fexofenadine)) 180 mg PO DAILY furosemide 40 mg PO TID gemfibrozil 600 mg PO BID levothyroxine 150 mcg PO QAM lisinopril 40 mg PO DAILY mometasone-formoterol 50-5 mcg/actuation 2 puffs inhalation Q12H omega 4-chi-std-fish oil 100-160-1,000 mg (Fish Oil) caps PO propranolol ER 60 mg PO DAILY topiramate 50 mg PO BID Do you need a note to return to daycare/school/sports/work: No HPI Obstructive sleep apnea HPI Details MR. AGUILAR , 63 years old gentleman is here for follow-up. Complains of shortness of breath if he walks up hill or tries to climb stairs, but on level ground he has no problem and he can walk without getting shortness of breath. He denies any attacks of wheezing or cough. Does have mild nasal congestion off and on. Pulmonary function test was performed which is relatively normal. This gentleman is morbidly obese with diagnosis of obstructive sleep apnea but for the last 2 years has not been able to use CPAP. He sleeps in a recliner, can not sleep flat in the bed. He does get about 5-6 hours of sleep and denies daytime sleepiness. He stop using the CPAP about 2 years ago. He feels suffocated when he puts the mask on, He is not in any moved to have repeat sleep study and consider going on CPAP. [facility] Medical History (Updated 11/15/23 @ 15:08 by Rafael Goodwin MD) Shortness of breath Restrictive lung disease MAXI (obstructive sleep apnea) Morbid obesity Sleep apnea History of COVID-19 Migraine Hypothyroid High cholesterol Hypertension Surgical History Hx of right inguinal hernia repair History of esophagogastroduodenoscopy (EGD) H/O colonoscopy Social History Patient Tobacco Use Status: Never used Tobacco Second Hand Smoke Exposure: No Current occupational status: retired Current occupation: right hand dominant Review of Systems Const All systems reviewed & are unremarkable except as noted in HPI and below Eyes Reports no additional complaints ENT Reports nasal congestion and Reports nasal discharge Card Denies chest pain, Denies syncope, Denies irregular heart rhythm, Reports leg ulcers and Reports leg edema Resp Reports as per HPI GI Reports no additional complaints Reports no additional complaints Musc Reports limited range of motion Skin/Breast Reports system reviewed and no additional complaints, except as documented Neuro Reports no additional complaints and Denies syncope Psych Reports no additional complaints Physical Exam Vital Signs: Last Vital Signs Pulse 66 11/15/23 14:27 BP 110/70 11/15/23 14:27 Pulse Ox 95 11/15/23 14:27 Oxygen Delivery Method Room Air 11/15/23 14:27 BMI result Body Mass Index 46.1 This gentleman is morbidly obese with a round face, Sitting upright. Const General: comfortable, no acute distress, alert and awake Orientation/consciousness: patient oriented x3 HEENT Head: Yes normal to inspection General nose exam: No nasal polyps present and No nasal discharge present Face and sinus: Yes sinuses nontender Mouth: oropharynx abnormals (He has very crowded and narrow oropharynx, Mallampati class 4) Throat: Yes posterior oropharynx normal Eyes General: appearance normal, both eyes and all related structures Neck Other: Neck is very obese Neck: Yes normal visual inspection, Yes no lymphadenopathy, Yes trachea midline, Yes no JVD and Yes other (Neck size 20 in) Thyroid: Thyroid normal Chest Chest palpation & inspection: normal inspection of the chest, normal palpation of entire chest wall and no tenderness Resp Other: Percussion note not perceptible because of says thick chest wall Breath sounds are markedly diminished over the lower lobes and especially over. the basilar areas No crepitations or wheezes Cardio Palpation: PMI not normal (Not palpable) Rate: regular rate Rhythm: regular rhythm GI Inspection: Yes other Palpation (GI): Soft to palpation, Tenderness to palpation present (GI), No hepatosplenomegaly present, Palpable mass present and Other GI palpation findings present (Abdomen is grossly obese and protuberant) Auscultation: normal bowel sounds Back/Spine/Pelvis Thoracic/Lumbar Spine: thoracic and lumbar spine normal to inspection and thoraco-lumbar ROM limited Skin General skin exam: no rashes or lesions noted Neuro General: patient oriented x3 and no focal motor deficits Cranial nerves: Yes CN's II-XII intact bilaterally Extrem General: Yes normal to inspection, Yes no calf tenderness and Yes edema (Has mar ked edema of both lower extremities. Currently dressed with bandage) Psych Appearance: grossly normal and well kempt Speech and movement: Normal speech and movement present Results Reviewed Results Reviewed: PULMONARY FUNCTION TEST ON 10/31/2023. FVC 80% FEV1 76% FEV1/FVC RATIO 73. FEF 25--75 = 66% MVV 78%. TLC 84% RESIDUAL VOLUME 88%. DLCO 91 % SURPRISINGLY THERE IS NO SIGNIFICANT OBSTRUCTIVE OR RESTRICTIVE LUNG DISEASE Assessment & Plan Assessment & Plan (1) Morbid obesity: Comment: Morbid obesity is evident. BMI 46. I His obesity is predominantly abdominal. It prevents him from lying down flat. So he has been sleeping in the chair/Recliner Code(s): E66.01 - Morbid (severe) obesity due to excess calories Plan: Patient is not considering to restart the use of CPAP. The best bet would be for him to lose weight., and in the meantime keep on sleeping in the recliner. (2) MAXI (obstructive sleep apnea): Comment: Patient has long-standing history of obstructive sleep apnea, Used CPAP for 6-8 years. He gave up using the CPAP about 2-3 years ago. As a reason he states that he felt his lungs were congested and he could not use the CPAP anymore. Code(s): G47.33 - Obstructive sleep apnea (adult) (pediatric) Plan: Discussed with him , and he would not consider going back to the CPAP. (3) Shortness of breath: Comment: Dyspnea on exertion especially walking up hill or climbing stairs is related to his obesity, He does not have any significant obstructive or restrictive pulmonary disorder at this time. Code(s): R06.02 - Shortness of breath Plan: Told to do deep breathing, exercises to keep his lungs expanding and also stress that he must do some weight reduction. He will continue to follow-up with primary care physician , Dr. Siddhartha Penny And he is welcome to come and see me as needed. Coding Level of Care Code Est Pt Level 3 (27268) Diagnoses Morbid obesity E66.01 MAXI (obstructive sleep apnea) G47.33 Shortness of breath R06.02
== END 2023-11-15 14:54 | disposition home or self-care (01) ==
PROVIDERS: PCP Internal Medicine; Visit Provider Internal Medicine
DX: E66.01 Morbid (severe) obesity due to excess calories (principal); G47.33 Obstructive sleep apnea (adult) (pediatric); R06.02 Shortness of breath
CPT/HCPCS: 99213

== ENCOUNTER → 2023-11-15 14:15 | Outpatient (BNVA) | payer OTHER, SELFPAY | PROVIDERS: PCP Internal Medicine; Visit Provider Internal Medicine ==

== ENCOUNTER 2024-01-13 11:31 | Outpatient (REF) | payer OTHER, SELFPAY ==
[2024-01-13 11:44] LABS: MANUAL DIFF FLAG NO
[2024-01-13 12:19] LABS: Basophils Absolute Auto 0.1 X10*3/uL (0.0-0.2); Basophils Percent Auto 1.9 % (0-2); Eosinophils Absolute Auto 0.2 X10*3/uL (0.0-0.4); Eosinophils Percent Auto 4.1 % (0-4); Hematocrit 40.3 % (42.0-52.0); Hemoglobin 13.1 g/dl (14.0-18.0); Imm Gran Abs Auto 0.03 X10*3/uL (0.00-0.03); Imm Gran Pct Auto 0.5 % (0.0-0.4); Lymphocytes Absolute Auto 1.6 X10*3/uL (1.2-4.9); Lymphocytes Percent Auto 28.2 % (20-40); Mean Corpuscular HGB Conc 32.5 g/dl (31.0-36.0); Mean Corpuscular Hemoglobin 29.8 pg (27.0-33.0); Mean Corpuscular Volume 91.6 fL (80.0-98.0); Mean Platelet Volume 9.7 fL (9.4-12.4); Monocytes Absolute Auto 0.5 X10*3/uL (0.1-1.2); Monocytes Percent Auto 8.3 % (2-11); Neutrophils Absolute Auto 3.3 x10*3/uL (2.0-8.3); Platelet Count 216 X10*3/uL (160-400); Red Cell Distribution Width 14.6 % (11.0-16.0); White Blood Count 5.8 X10*3/uL (4.8-10.8)
[2024-01-13 17:18] LABS: Alanine Aminotransferase 16 U/L (0-40); Albumin Level 4.2 g/dL (3.5-5.0); Alkaline Phosphatase 150 U/L (39-117); Anion Gap 12 (12-20); Aspartate Amino Transferase 19 U/L (5-37); Bilirubin Total 0.3 mg/dL (0.0-1.0); Blood Urea Nitrogen 30 mg/dL (9-16); Calcium 9.4 mg/dL (8.4-10.2); Carbon Dioxide 27 mmol/L (22-29); Chloride 105 mmol/L (96-108); Cholesterol 217 mg/dL (<200); Estimated Glomerular Filt Rate 49; Glucose Fasting 125 mg/dL (60-99); HDL Cholesterol 32 mg/dL (>40); LDL Cholesterol Calculated 131 mg/dL (<100); Potassium 3.7 mmol/L (3.3-5.1); Sodium 140 mmol/L (135-145); Thyroid Stimulating Hormone 1.98 uIU/mL (0.32-4.0); Total Protein 7.7 g/dL (6.5-8.0); Triglycerides 274 mg/dL (<150); Vitamin D 25-OH Total 50.4 ng/mL (>30)
[2024-01-16 10:54] LABS: Free Prostate Spec Ag 0.7 ng/mL; Percent Free Prostate Spec Ag 17 % (calc) (>25); Prostate Specific Ag Total 4.1 ng/mL (< OR = 4.0)
== END 2024-01-13 11:32 | disposition home or self-care (01) ==
LOC: HO.LAB 11:31
PROVIDERS: PCP Internal Medicine; Visit Provider Internal Medicine
DX: Z12.5 Encounter for screening for malignant neoplasm of prostate (principal); C61 Malignant neoplasm of prostate; E78.00 Pure hypercholesterolemia, unspecified; I10 Essential (primary) hypertension; E03.9 Hypothyroidism, unspecified; E66.01 Morbid (severe) obesity due to excess calories
CPT/HCPCS: 36415; 80053; 80061; 82306; 84154; 84443; 85025

== ENCOUNTER 2024-07-20 11:40 | Outpatient (REF) | payer OTHER, SELFPAY ==
[2024-07-20 11:54] LABS: MANUAL DIFF FLAG NO
[2024-07-20 12:20] LABS: Basophils Absolute Auto 0.1 X10*3/uL (0.0-0.2); Basophils Percent Auto 1.4 % (0-2); Eosinophils Absolute Auto 0.2 X10*3/uL (0.0-0.4); Eosinophils Percent Auto 3.5 % (0-4); Hematocrit 38.5 % (42.0-52.0); Hemoglobin 12.6 g/dl (14.0-18.0); Imm Gran Abs Auto 0.03 X10*3/uL (0.00-0.03); Imm Gran Pct Auto 0.6 % (0.0-0.4); Lymphocytes Absolute Auto 1.4 X10*3/uL (1.2-4.9); Lymphocytes Percent Auto 28.7 % (20-40); Mean Corpuscular HGB Conc 32.7 g/dl (31.0-36.0); Mean Corpuscular Hemoglobin 29.4 pg (27.0-33.0); Mean Platelet Volume 9.6 fL (9.4-12.4); Monocytes Absolute Auto 0.4 X10*3/uL (0.1-1.2); Monocytes Percent Auto 8.3 % (2-11); Neutrophils Absolute Auto 2.8 x10*3/uL (2.0-8.3); Neutrophils Percent Auto 57.5 % (45-73); Platelet Count 202 X10*3/uL (160-400); Red Blood Count 4.28 X10*6/uL (4.60-5.80); Red Cell Distribution Width 14.1 % (11.0-16.0); White Blood Count 4.9 X10*3/uL (4.8-10.8)
[2024-07-20 12:55] LABS: Alanine Aminotransferase 26 U/L (0-40); Albumin Level 4.3 g/dL (3.5-5.0); Alkaline Phosphatase 144 U/L (39-117); Anion Gap 13 (12-20); Aspartate Amino Transferase 46 U/L (5-37); Bilirubin Total 0.4 mg/dL (0.0-1.0); Blood Urea Nitrogen 22 mg/dL (9-16); Carbon Dioxide 28 mmol/L (22-29); Chloride 103 mmol/L (96-108); Cholesterol 178 mg/dL (<200); Estimated Glomerular Filt Rate 47; Glucose Fasting 121 mg/dL (60-99); HDL Cholesterol 32 mg/dL (>40); LDL Cholesterol Calculated 94 mg/dL (<100); Potassium 3.9 mmol/L (3.3-5.1); Sodium 140 mmol/L (135-145); Total Protein 7.8 g/dL (6.5-8.0); Triglycerides 263 mg/dL (<150)
[2024-07-20 13:11] LABS: Thyroid Stimulating Hormone 1.23 uIU/mL (0.32-4.0)
== END 2024-07-20 11:41 | disposition home or self-care (01) ==
LOC: HO.LAB 11:40
PROVIDERS: PCP Internal Medicine; Visit Provider Internal Medicine
DX: I10 Essential (primary) hypertension (principal); E78.00 Pure hypercholesterolemia, unspecified; E03.9 Hypothyroidism, unspecified
CPT/HCPCS: 36415; 80053; 80061; 84443; 85025

== ENCOUNTER 2024-09-13 10:28 | Outpatient (AMB) | payer OTHER, SELFPAY ==
--- NOTE | 2024-09-13 10:33 | A.OFFVIS_ITS ---
Vital Signs 09/13/24 10:34 Height 5 ft 10 in Weight 334 lb 0.005 oz BMI 47.9 BP 138/90 H Blood Pressure Location Lt brachial Position Sitting Pulse 69 Pulse Source Pulse Oximeter Pulse Oximetry (%) 100 Oxygen Delivery Method Room Air Intake Visit Reasons: colonscopy Intake Note: pt is here for pre-op clearance by Dr. Church possibly beginning of 2024. pt states he was sent here because he cannot lie flat he cannot breath. sleeps in recliner Doping Supervisor Required: No Allergies bee pollen [BEE STINGS] Allergy (Severe, Verified 09/13/24 10:51) SWELLING lobster Allergy (Severe, Verified 09/13/24 10:51) Swelling Medication List - Last Reconciled 09/13/24 by Rafael Goodwin MD aspirin (Adult Low Dose Aspirin) 81 mg PO DAILY atorvastatin 80 mg PO DAILY wvjbhbnwmg-ymozhbeesrwkf-qbes 50-325-40 mg 1 tab PO QID PRN cholecalciferol (vitamin D3) 25 mcg PO DAILY diltiazem HCl ER (Tiadylt ER) 300 mg PO DAILY fexofenadine (Allergy Relief (fexofenadine)) 180 mg PO DAILY furosemide 40 mg PO TID gemfibrozil 600 mg PO BID levothyroxine 150 mcg PO QAM lisinopril 40 mg PO DAILY omega 5-gjj-qnk-fish oil 100-160-1,000 mg (Fish Oil) caps PO propranolol ER 60 mg PO DAILY topiramate 50 mg PO BID Do you need a note to return to daycare/school/sports/work: No HPI HPI colonscopy: Details: This 64 years old gentleman, comes for pulmonary clearance, because he has to undergo colonoscopy. His main complaint is that he gets short of breath on lying down flat, especially if in supine position. Guille was seen by me about a year ago with history of obstructive sleep apnea. He was not able to tolerate the CPAP and hence gave it up. He did have shortness of breath on exertion but his pulmonary function test in October 2023 was WNL. . He also had a repeat sleep study in October 2023, which did not show any evidence of obstructive sleep apnea. At that time he had lost some weight. DOES HAVE SYMPTOMS OF THE NASAL CONGESTION ALMOST ON A DAILY BASIS, AND USES MOMETASONE NASAL SPRAY WELL FEXOFENADINE 180 MG ONCE A DAY P.R.N.. At present he denies any cough or wheezing , denies any shortness of breath as long as he is in upright position. He has been sleeping in a recliner. Main complaint again is that he gets short of breath if he lies flat. He has gained lot of weight in the past 1 year, according to of records he has put on about 13 lb of weight. Most of the weight gain is in the belly and lower extremities. He does not have any open ulcers on the legs but does use Tal bandages for compression. Currently he is also on furosemide 40 mg 3 times a day. Along with that he is also on diltiazem HCL 300 mg daily, which may be causing some of his stasis edema of the legs. [facility] Medical History (Updated 09/13/24 @ 11:17 by Rafael Goodwin MD) Allergic rhinitis Orthopnea Shortness of breath Restrictive lung disease MAXI (obstructive sleep apnea) Morbid obesity Sleep apnea History of COVID-19 Migraine Hypothyroid High cholesterol Hypertension Surgical History Hx of right inguinal hernia repair History of esophagogastroduodenoscopy (EGD) H/O colonoscopy Social History Patient Tobacco Use Status: Never used Tobacco Second Hand Smoke Exposure: No Current occupational status: retired Current occupation: right hand dominant Review of Systems Const All systems reviewed & are unremarkable except as noted in HPI and below Eyes Reports no additional complaints ENT Reports nasal congestion (mild intermittent ) and Reports nasal discharge Card Denies chest pain, Denies syncope, Denies irregular heart rhythm, Reports leg ulcers and Reports leg edema (++) Resp Reports as per HPI GI Reports no additional complaints Reports no additional complaints Musc Reports limited range of motion Skin/Breast Reports system reviewed and no additional complaints, except as documented Neuro Reports no additional complaints and Denies syncope Psych Reports no additional complaints Physical Exam Vital Signs: Last Vital Signs Pulse 69 09/13/24 10:34 BP 138/90 H 09/13/24 10:34 Pulse Ox 100 09/13/24 10:34 Oxygen Delivery Method Room Air 09/13/24 10:34 BMI result Body Mass Index 47.9 This gentleman is morbidly obese with a round face, Sitting upright. Const General: comfortable (while sitting up right ), no acute distress, alert and awake Orientation/consciousness: patient oriented x3 HEENT Head: Yes normal to inspection General nose exam: No nasal polyps present and No nasal discharge present Face and sinus: Yes sinuses nontender Mouth: oropharynx abnormals (He has very crowded and narrow oropharynx, Mallampati class 4) Throat: Yes posterior oropharynx normal Eyes General: appearance normal, both eyes and all related structures Neck Other: Neck is very obese Neck: Yes normal visual inspection, Yes no lymphadenopathy, Yes trachea midline, Yes no JVD and Yes other (Neck size 20 in) Thyroid: Thyroid normal Chest Chest palpation & inspection: normal inspection of the chest, normal palpation of entire chest wall and no tenderness Resp Other: Percussion note not perceptible because of thick chest wall Breath sounds are markedly diminished over the lower lobes and especially over the basilar areas No crepitations or wheezes Cardio Palpation: PMI not normal (Not palpable) Rate: regular rate Rhythm: regular rhythm Heart sounds: no gallops and no murmurs GI Inspection: Yes other Palpation (GI): Soft to palpation, Tenderness to palpation present (GI), No hepatosplenomegaly present, Palpable mass present and Other GI palpation findings present (Abdomen is grossly obese and protuberant) Auscultation: normal bowel sounds Back/Spine/Pelvis Thoracic/Lumbar Spine: thoracic and lumbar spine normal to inspection and thoraco-lumbar ROM limited Skin General skin exam: no rashes or lesions noted Neuro General: patient oriented x3 and no focal motor deficits Cranial nerves: Yes CN's II-XII intact bilaterally Extrem General: Yes normal to inspection, Yes no calf tenderness and Yes edema (Has marked edema of both lower extremities.Currently dressed with bandages) Psych Appearance: grossly normal and well kempt Speech and movement: Normal speech and movement present Results Reviewed Results Reviewed: PULMONARY FUNCTION TEST ON 10/31/2023 , WAS WITHIN NORMAL LIMITS EXCEPT FOR A VERY MILD DEGREE OF RESTRICTIVE LUNG DISORDER. SPIROMETRY TODAY ; HOME-BASED SLEEP STUDY ON WAS NEGATIVE FOR ANY SLEEP APNEA AND ALSO SNORING WAS MINIMAL Assessment & Plan Assessment & Plan (1) Morbid obesity: Comment: Morbid obesity is evident. BMI 47.9 His obesity is predominantly abdominal. It prevents him from lying down flat. So he has been sleeping in the chair/Recliner Code(s): E66.01 - Morbid (severe) obesity due to excess calories Category: Medical Plan: DISCUSSED ABOUT THE OBESITY AT LENGTH. A GREAT EXTENT IT IS EXACERBATED BY FLUID RETENTION. HE NEEDS TO SEE CARDIOLOGY SERVICE, FOR ADJUSTMENT IN HIS DIURETIC THERAPY (2) Restrictive lung disease: Comment: Because of morbid obesity and especially abdominal obesity is a good candidate for restrictive lung disease. THE SPIROMETRY HOWEVER SHOWS ONLY MILD DEGREE OF RESTRICTIVE DISORDER TLC=78 % Code(s): J98.4 - Other disorders of lung Category: Medical Plan: EXPLAINED ABOUT THE RESTRICTIVE PART. GIVEN INCENTIVE SPIROMETRY DEVICE , ADVISED TO DO DEEP BREATHING EXERCISES EVERY FEW HOURS WHILE AWAKE. (3) Orthopnea: Comment: PATIENT HAS DIFFICULTY IN LYING FLAT, ESPECIALLY IN SUPINE POSITION. THIS IS AGGRAVATED BY ADDITIONAL FLUID RETENTION. FOR MANY YEARS HE HAS BEEN SLEEPING IN A RECLINER. Code(s): R06.01 - Orthopnea Category: Medical Plan: I THINK IT IS OKAY FOR HIM TO SLEEP IN A RECLINER, AND PROPPED UP POSITION. KNOWING THAT IT AGGRAVATES HIS STASIS EDEMA OF THE LOWER EXTREMITY. (4) Allergic rhinitis: Comment: HAS CHRONIC MILD ALLERGIC RHINITIS. CONTROLLED WITH NASAL SPRAY AND FEXOFENADINE Code(s): J30.9 - Allergic rhinitis, unspecified Category: Medical Plan: OK TO CONTINUE USING FEXOFENADINE 180 MG P.O. ONCE A DAY P.R.N. AND MOMETASONE NASAL SPRAY 2 SPRAYS IN EACH NOSTRIL B.I.D.. Plan * NOTE : FAR PULMONARY CLEARANCE FOR COLONOSCOPY IS CONCERNED, THERE IS NO CONTRAINDICATION. HOWEVER HIS ISSUE IS THAT HE HAS DIFFICULTY IN LYING DOWN FLAT ESPECIALLY IN SUPINE POSITION, SO ARRANGEMENTS SHOULD BE MADE THAT THE PROCEDURE COULD BE DONE IN A RELATIVELY PROPPED UP POSITION . FOR HIS ORTHOPNEA HE NEEDS TO SEE CARDIOLOGY SERVICE AND FOR OPTIMIZATION OF DIURETIC THERAPY. Coding Level of Care Code Est Pt Level 4 (61331) Diagnoses Morbid obesity E66.01 Restrictive lung disease J98.4 Orthopnea R06.01 Allergic rhinitis J30.9
[2024-09-13 10:34] VITALS: BP 138/90; PULSE 69; O2SAT 100; BMI 47.9
== END 2024-09-13 11:12 | disposition home or self-care (01) ==
PROVIDERS: PCP Internal Medicine; Visit Provider Internal Medicine
DX: E66.01 Morbid (severe) obesity due to excess calories (principal); J98.4 Other disorders of lung; R06.01 Orthopnea; J30.9 Allergic rhinitis, unspecified
CPT/HCPCS: 99214

== ENCOUNTER → 2024-09-13 10:28 | Outpatient (BNVA) | payer OTHER, SELFPAY | PROVIDERS: PCP Internal Medicine; Visit Provider Internal Medicine ==

== ENCOUNTER 2024-11-19 15:26 | Outpatient (AMB) | payer OTHER, SELFPAY ==
[2024-11-19 15:30] VITALS: BP 136/82; PULSE 97; O2SAT 96; BMI 47.6
--- NOTE | 2024-11-19 15:30 | A.OFFVIS_ITS ---
Vital Signs 11/19/24 15:30 Height 5 ft 10 in Weight 332 lb BMI 47.6 BP 136/82 Blood Pressure Location Lt brachial Position Sitting Pulse 97 Pulse Source Doppler Pulse Oximetry (%) 96 Oxygen Delivery Method Room Air Intake Visit Reasons: pre-op dr og Allergies bee pollen [BEE STINGS] Allergy (Severe, Verified 11/19/24 15:35) SWELLING lobster Allergy (Severe, Verified 11/19/24 15:35) Swelling Medication List - Last Reconciled 11/19/24 by Rafael Goodwin MD aspirin (Adult Low Dose Aspirin) 81 mg PO DAILY atorvastatin 80 mg PO DAILY xomxfcmaax-urlwjlyhcelct-nree 50-325-40 mg 1 tab PO QID PRN cholecalciferol (vitamin D3) 25 mcg PO DAILY diltiazem HCl ER (Tiadylt ER) 300 mg PO DAILY fexofenadine (Allergy Relief (fexofenadine)) 180 mg PO DAILY furosemide 40 mg PO TID gemfibrozil 600 mg PO BID levothyroxine 150 mcg PO QAM lisinopril 40 mg PO DAILY mometasone 50 mcg/actuation 2 sprays intranasal BID omega 3-qha-lgd-fish oil 100-160-1,000 mg (Fish Oil) caps PO propranolol ER 60 mg PO DAILY topiramate 50 mg PO BID Do you need a note to return to daycare/school/sports/work: No HPI HPI pre-op dr og: Details: This 64 years old gentleman comes once again for pulmonary clearance, because he has to undergo colonoscopy. His main complaint is that he gets short of breath on lying down flat, especially if in supine position. Guille was seen by me in Aug 2024 for the same reason . About 2 years ago he was diagnosed to have obstructive sleep apnea, but He was not able to tolerate the CPAP and hence gave it up. He did have shortness of breath on exertion but his pulmonary function test in October 2023 was WNL. . He also had a repeat sleep study in October 2023, which did not show any evidence of obstructive sleep apnea. This study was done in a sitting position, as he can not lie down flat. At that time he had lost some weight. Mr. Villalta has symptoms of nasal congestion and postnasal discharge for long time due to allergic rhinitis. He uses the mometasone nasal spray daily and also uses fexofenadine 180 mg once a day, to control his nasal symptoms. At present he denies any cough or wheezing , denies any shortness of breath as long as he is in upright position. He has been sleeping in a recliner. Main complaint again is that he gets short of breath if he lies flat. He remains grossly overweight. He has chronic stasis edema of both lower extremities . But does not have any open ulcers on the legs . He uses compressive stockings and bandages on the legs every day. Currently he is also on furosemide 40 mg 3 times a day, the 3rd does he takes in the evening and that makes him wake up a few times during the night. Along with that he is also on diltiazem HCL 300 mg daily, which may be causing some of his stasis edema of the legs. Today He came walking without any shortness of breath . He denies any. cough wheezing or chest pain He claims that he sleeps well as long as he sleeps in the recliner. Was gain when I asked him about possibility of lying down flat for colonoscopy he say is he would not be able to do that, may be in his semi reclined position he will be okay. [facility]LY [facility], [facility] Medical History Positive colorectal cancer screening using Cologuard test (07/27/24) Allergic rhinitis Orthopnea Shortness of breath Restrictive lung disease MAXI (obstructive sleep apnea) Morbid obesity Sleep apnea History of COVID-19 Migraine Hypothyroid High cholesterol Hypertension Surgical History Hx of right inguinal hernia repair History of esophagogastroduodenoscopy (EGD) H/O colonoscopy Social History Patient Tobacco Use Status: Never used Tobacco Second Hand Smoke Exposure: No Current occupational status: retired Current occupation: right hand dominant Review of Systems Const All systems reviewed & are unremarkable except as noted in HPI and below Eyes Reports no additional complaints ENT Reports nasal congestion (mild intermittent ) and Reports nasal discharge Card Denies chest pain, Denies syncope, Denies irregular heart rhythm, Reports leg ulcers and Reports leg edema (++) Resp Reports as per HPI GI Reports no additional complaints Reports no additional complaints Musc Reports limited range of motion Skin/Breast Reports system reviewed and no additional complaints, except as documented Neuro Reports no additional complaints and Denies syncope Psych Reports no additional complaints Physical Exam Vital Signs: Last Vital Signs Pulse 97 11/19/24 15:30 BP 136/82 11/19/24 15:30 Pulse Ox 96 11/19/24 15:30 Oxygen Delivery Method Room Air 11/19/24 15:30 BMI result Body Mass Index 47.6 This gentleman is morbidly obese with a round face, Sitting upright. Const General: comfortable (while sitting up right ), no acute distress, alert and awake Orientation/consciousness: patient oriented x3 HEENT Head: Yes normal to inspection General nose exam: No nasal polyps present and No nasal discharge present Face and sinus: Yes sinuses nontender Mouth: oropharynx abnormals (He has very crowded and narrow oropharynx, Mallampati class 4) Throat: Yes posterior oropharynx normal Eyes General: appearance normal, both eyes and all related structures Neck Other: Neck is very obese Neck: Yes normal visual inspection, Yes no lymphadenopathy, Yes trachea midline, Yes no JVD and Yes other (Neck size 20 in) Thyroid: Thyroid normal Chest Chest palpation & inspection: normal inspection of the chest, normal palpation of entire chest wall and no tenderness Resp Other: Percussion note not perceptible because of thick chest wall Breath sounds are markedly diminished over the lower lobes and especially over the basilar areas No crepitations or wheezes Cardio Palpation: PMI not normal (Not palpable) Rate: regular rate Rhythm: regular rhythm Heart sounds: no gallops and no murmurs GI Inspection: Yes other Palpation (GI): Soft to palpation, Tenderness to palpation present (GI), No hepatosplenomegaly present, Palpable mass present and Other GI palpation findings present (Abdomen is grossly obese and protuberant) Auscultation: normal bowel sounds Back/Spine/Pelvis Thoracic/Lumbar Spine: thoracic and lumbar spine normal to inspection and thoraco-lumbar ROM limited Skin General skin exam: no rashes or lesions noted Neuro General: patient oriented x3 and no focal motor deficits Cranial nerves: Yes CN's II-XII intact bilaterally Extrem General: Yes normal to inspection, Yes no calf tenderness and Yes edema (Has marked edema of both lower extremities.Currently dressed with bandages) Psych Appearance: grossly normal and well kempt Speech and movement: Normal speech and movement present Assessment & Plan Assessment & Plan (1) Morbid obesity: Comment: Morbid obesity is evident. BMI 47.6 His obesity is predominantly abdominal. It prevents him from lying down flat. So he has been sleeping in the chair/Recliner Code(s): E66.01 - Morbid (severe) obesity due to excess calories Category: Medical Plan: He has been chronically obese and is difficult for him to lose weight, as he is not able to do much exercise. Advised to cut down the calories intake as much as possible. (2) Restrictive lung disease: Comment: Because of morbid obesity and especially abdominal obesity , he is a good candidate for restrictive lung disease. THE SPIROMETRY HOWEVER SHOWED ONLY MILD DEGREE OF RESTRICTIVE DISORDER TLC=78 % Code(s): J98.4 - Other disorders of lung Category: Medical Plan: He is advised to keep on doing deep breathing exercises at least 3 times a day. (3) MAXI (obstructive sleep apnea): Comment: Patient has long-standing history of obstructive sleep apnea, Used CPAP for 6-8 years. He gave up using the CPAP about 3 years ago. He states that when he try to use CPAP he felt his lungs were congested . He claims that as long as he is sitting and sleeping in a recliner he has no issue and sleeps well. Code(s): G47.33 - Obstructive sleep apnea (adult) (pediatric) Category: Medical Plan: I still stress that he has to lose significant amount of weight. He can continue to sleep in the recliner, if it makes his sleeping better. (4) Allergic rhinitis: Comment: HAS CHRONIC MILD ALLERGIC RHINITIS. CONTROLLED WITH NASAL SPRAY AND FEXOFENADINE Code(s): J30.9 - Allergic rhinitis, unspecified Category: Medical Plan: Continue to use mometasone nasal spray 1 spray in each nostril daily. Also may use fexofenadine 180 mg once a day p.r.n. Plan * FAR CLEARANCE FOR COLONOSCOPY IS CONCERNED I WOULD AGAIN SAY THAT HE CAN UNDERGO COLONOSCOPY. FROM PULMONARY POINT OF VIEW THERE IS NO CONTRAINDICATION. DURING THE PROCEDURE , HE MAY USE O2 SUPPLEMENTATION TO ALLEVIATE HIS SHORTNESS OF BREATH. HE AGAIN REITERATES THAT HE WOULD NOT BE ABLE TO LIE DOWN FLAT . SO IF POSSIBLE HE MAY BE KEPT IN A SOME MY PROPPED UP POSITION, DURING THE PROCEDURE. Coding Level of Care Code Est Pt Level 4 (95329) Diagnoses Morbid obesity E66.01 Restrictive lung disease J98.4 MAXI (obstructive sleep apnea) G47.33 Allergic rhinitis J30.9
--- OUTSIDE RECORDS SUMMARY | 2024-11-19 17:43 | XMS_ITS ---
Author Organization [facility] Address [address] [place] [address] Care Team Providers Care Business Planner Name Role Phone CAMRON RAZA Primary Care Provider Siddhartha Plascencia Unavailable [phone] Encounters Encounter Location Date Provider Diagnosis [facility] [address] [place] [phone] 10/28/2024 Siddhartha Church PLAN OF TREATMENT Next Appt Details Provider Name:Siddhartha Church , 12/10/2024 09:30:00 AM, [address] [place] [address] , [place], [place], [phone],
--- OUTSIDE RECORDS SUMMARY | 2024-11-19 17:43 | XMS_ITS ---
Author Organization [facility] Address [address] [place] [phone] Care Team Providers Care Nurse Head Name Role Phone LUZ MARINA, CAMRON Primary Care Provider Siddhartha Plascencia Unavailable [phone] ALLERGIES Allergen (clinical drug ingredient) Drug/Non Drug Allergy documented on EMR Reaction Allergy Type Onset Date Status Bee Sting Unknown Allergy Active Shellfish (FN) lobster (uncoded) Unknown Allergy Active REASON FOR VISIT positive cologuard MEDICATIONS Medication SIG (Take, Route, Frequency, Duration) Notes Start Date End Date Status Gemfibrozil 600 MG TAKE 1 TABLET BY WILLY TWICE DAILY Oral for 30 Active Mometasone Furoate 50 MCG/ACT SHAKE LIQUID AND USE 2 SPRAYS IN EACH NOSTRIL TWICE DAILY Diagnosis Unavailable Nasal for 15 Active Propranolol HCl ER 60 MG TAKE 1 CAPSULE BY MOUTH EVERY DAY Oral for 30 Active Xogmeouxei-TNGB-Zmaxpmxn 50-325-40 MG TAKE 1 TABLET BY MOUTH FOUR TIMES DAILY FOR 10 DAYS NEEDED Oral for 10 Active Levothyroxine Sodium 150mcg 1 po qd Active Atorvastatin Calcium 80mg 1 po qd Active Lisinopril 40mg 1 po qd Acti ve Topiramate 50 MG 1 tablet in am 2 tab lets in pm Orally Twice a day/prn migraines Active Aspirin 81mg 1 po qam Active Furosemide 40 MG 1 tablet Orally Once a day for 30 day(s) Active Tiadylt ER 300 MG 1 capsule Orally Onc e a day for 30 day(s) Active Vitamin D3 25 MCG (1000 UT) 1 tablet Ora lly Once a day for 30 day(s) Active Ibuprofen 800 MG 1 tablet with food o r milk as needed Orally every 8 hrs Active Multivitamin - 1 tablet Orally Once a day for 30 day(s) Active Fexofenadine HCl 180 MG 1 tablet Orally Once a day Active Fish Oil Active PROBLEMS Problem Type ICD Code Onset Dates Problem Status W/U Status Risk SNOMED Code Notes Problem Positive colorectal cancer screening using Cologuard test (R19.5) Active confirmed Abnormal feces (742980469) Problem Personal history of colonic polyps (Z86.010) Active confirmed History of polyp of colon (situation) (795387565) VITAL SIGNS Blood pressure systolic 00 mm Hg 10/02/19 25 Blood pressure diastolic 00 mm Hg 025 Height 70.5 in 10/02/2024 Weight 336 lbs 10/02/2024 BMI 47.52 kg/m2 10/02/2024 Encounters Encounter Location Date Provider Diagnosis [facility] [address] [place] [address] 10/02/2024 Siddhartha Church Positive colorectal cancer screening using Cologuard test R19.5 and Personal history of colonic polyps Z86.010 ASSESSMENTS Encounter Date Diagnosis Assessment Notes Treatment Notes Treatment Clinical Notes 10/02/2024 Positive colorectal cancer screening using Cologuard test (ICD-10 - R19.5) Stop fish oil and aspirin for 5 days before the colonoscopy Do not take the furosemide the day before or on the day of the colonoscopy We will need clearance form Dr. Goodwin and [facility]iology(has an appt on 10/04/24) 10/02/2024 Personal history of colonic polyps (ICD-10 - Z86.010) PLAN OF TREATMENT Treatment Notes Assessment Notes Positive colorectal cancer s creening using Cologuard test Stop fish oil and aspirin for 5 days before the colonoscopy Do not take the furosemide the day before or on the day of the colonoscopy We will need clearance form Dr. Goodwin and [facility] Cardiology(has an appt on 10/04/24) Future Test Test Name Order Date COLONOSCOPY 10/02/2024 Next Appt Details Follow Up: prn, Reason: Provider Name:Siddhartha Church , 12/10/2024 09:30:00 AM, [address] [place] [address] , [place], [place], [phone], Progress Notes * Examination Category Sub-Category Detail Notes General Examination GENERAL APPEARANCE: pleasant , well nourished, well developed, in no acute distress EYES: sclera non-icteric NECK/THYROID: no cervical lymphade nopathy, neck supple HEART: S1, S2 normal LUNGS: clear to auscultatio n bilaterally ABDOMEN: normal bowel sounds, no guarding or rigidity, no hepatosplenomegaly, no masses palpable, soft, nontender, nondistended. NEUROLOGIC: alert and oriented SKIN: nonjaundiced, no spi tatum angiomata. ORAL CAVITY: mucosa moist
--- OUTSIDE RECORDS SUMMARY | 2024-11-19 17:43 | XMS_ITS ---
Author Organization [facility] Address [address] [place], [place] [id number] Care Team Providers Care Division Order Analyst Name Role Phone Siddhartha Penny Primary Care Provider REASON FOR VISIT Message Encounters Encounter Location Date Provider Diagnosis Siddhartha Penny DO, FACP [address] [place], [place] [phone] 09/04/2024 Siddhartha Penny PLAN OF TREATMENT No Information
--- OUTSIDE RECORDS SUMMARY | 2024-11-19 17:43 | XMS_ITS ---
Author Organization [facility] Address [address] [place], [place] [phone] Care Team Providers Care Community Health Promoter Name Role Phone Siddhartha Penny Primary Care Provider REASON FOR VISIT Message Encounters Encounter Location Date Provider Diagnosis Siddhartha Penny DO, FACP [address] [place], [place] [phone] 07/25/2024 Siddhartha Penny PLAN OF TREATMENT No Information
--- OUTSIDE RECORDS SUMMARY | 2024-11-19 17:43 | XMS_ITS ---
Author Organization [facility] Address [address] [place] [address] Care Team Providers Care Medical Administrator Name Role Phone CAMRON RAZA Primary Care Provider Siddhartha Plascencia Unavailable [phone] Encounters Encounter Location Date Provider Diagnosis [facility] [address] [place] [address] 10/02/2024 Siddhartha Church PLAN OF TREATMENT Next Appt Details Provider Name:Siddhartha Church , 12/10/2024 09:30:00 AM, [address] [place] [address] , [place], [place], [phone],
--- OUTSIDE RECORDS SUMMARY | 2024-11-19 17:44 | XMS_ITS | Patient Health Record ---
Author Organization [facility] Address [address] [place] [address] Care Team Providers Care Addressograph Operator Name Role Phone CAMRON RAZA Primary Care Provider Siddhartha Plascencia Unavailable [phone] ALLERGIES Allergen (clinical drug ingredient) Drug/Non Drug Allergy documented on EMR Reaction Allergy Type Onset Date Status Bee Sting Unknown Allergy Active Shellfish (FN) lobster (uncoded) Unknown Allergy Active REASON FOR REFERRAL No Information MEDICATIONS Medication SIG (Take, Route, Frequency, Duration) Notes Start Date End Date Status Multivitamin - 1 tablet Orally Once a day for 30 day(s) Active Gemfibrozil 600 MG TAKE 1 TABLET BY WILLY TWICE DAILY Oral for 30 Active Mometasone Furoate 50 MCG/ACT SHAKE LIQUID AND USE 2 SPRAYS IN EACH NOSTRIL TWICE DAILY Diagnosis Unavailable Nasal for 15 Active Furosemide 40 MG 1 tablet Orally Once a day for 30 day(s) Active Propranolol HCl ER 60 MG TAKE 1 CAPSULE BY MOUTH EVERY DAY Oral for 30 Active Tiadylt ER 300 MG 1 capsule Orally Onc e a day for 30 day(s) Active Vitamin D3 25 MCG (1000 UT) 1 tablet Ora lly Once a day for 30 day(s) Active Evzdkjodcp-IASZ-Hgcnofve 50-325-40 MG TAKE 1 TABLET BY MOUTH FOUR TIMES DAILY FOR 10 DAYS NEEDED Oral for 10 Active Ibuprofen 800 MG 1 tablet with food o r milk as needed Orally every 8 hrs Active Levothyroxine Sodium 150mcg 1 po qd Active Atorvastatin Calcium 80mg 1 po qd Active Aspirin 81mg 1 po qam Active Lisinopril 40mg 1 po qd Acti ve Fexofenadine HCl 180 MG 1 tablet Orally Once a day Active Topiramate 50 MG 1 tablet in am 2 tab lets in pm Orally Twice a day/prn migraines Active Fish Oil Active SOCIAL HISTORY Sex Assigned At : Social History Observation Description Sex Assigned At Unknown PROBLEMS Problem Type ICD Code Onset Dates Problem Status W/U Status Risk SNOMED Code Notes Problem Colon cancer screening (Z12.11) Active confirmed 792529829 Problem History of adenomatous polyp of colon (Z86.010) Active confirmed 583723036 Problem Personal history of colonic polyps (Z86.010) Active confirmed History of poly p of colon (situation) (731157140) Problem Aspirin long-term use (Z79.82) Active confirmed 952847310443437 Problem Pre-procedural examination (Z01.818) Active confirmed 781623392063211 Problem Positive colorectal cancer screening using Cologuard test (R19.5) Active confirmed Abnormal feces (913266244) VITAL SIGNS Blood pressure diastolic 00 mm Hg 10/02/2024 Height 70.5 in 10/02/2024 Blood pressure systolic 00 mm Hg 10/02/2024 Weight 336 lbs 10/02/2024 BMI 47.52 kg/m2 10/02/2024 Encounters Encounter Location Date Provider Diagnosis [facility] [address] [place] [phone] 10/02/2024 Siddhartha Church Positive colorectal cancer screening using Cologuard test R19.5 and Personal history of colonic polyps Z86.010 [facility] [address] [place] [phone] 10/02/2024 Siddhartha Church [facility] [address] [place] [phone] 10/28/2024 Siddhartha Church ASSESSMENTS Encounter Date Diagnosis Assessment Notes Treatment Notes Treatment Clinical Notes 10/02/2024 Personal history of colonic polyps (ICD-10 - Z86.010) 10/02/2024 Positive colorectal cancer screening using Cologuard test (ICD-10 - R19.5) Stop fish oil and aspirin for 5 days before the colonoscopy Do not take the furosemide the day before or on the day of the colonoscopy We will need clearance form Dr. Goodwin and [facility] Cardiology(has an appt on 10/04/24) PLAN OF TREATMENT Future Test Test Name Order Date COLONOSCOPY 12/22/2012 COLONOSCOPY 05/17/2023 COLONOSCOPY 10/02/2024 Next Appt Details Provider Name:Siddhartha Church , 12/10/2024 09:30:00 AM, [address] [place] [address] , [place], [place], [phone], Insurance Providers Payer Name Payer Address Payer Phone Subscriber Number Group Number Insured Name Patient Relationship to Insured Coverage Start Date Coverage End Date [facility] Insurance ([employer]) [address] [place] [id number] [phone] [id number] SHARATH AGUILAR Self - patient is the insured MEDICAL (GENERAL) HISTORY Medical History History ICD Code Colon polyps-small tubular adenomas pavan gokul in 1999 and 2003 Colonoscopy 10-09-2007-neg except a hyper plastic polyp GERD-EGD in 2003 with a smal l HH, but no sig. esophagitis nor Trujillo's esophagus--currently asymptomatic off of meds Hypertension Hyperlipidemia. 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 Otto, for follow up. Diagnosed with prostate cancer--pt on watch list ----no specific treatment--being followed Lymphedema both legs Surgical History Surgery Date(Month/Year) 3 toe nails removed-fungal infection
--- OUTSIDE RECORDS SUMMARY | 2024-11-19 17:44 | XMS_ITS ---
Author Organization [facility] Penny [facility] Address [address] [place], [place] [phone] Care Team Providers Care Duct Layer Name Role Phone Siddhartha Penny Primary Care Provider [phone] REASON FOR VISIT FYI only Encounters Encounter Location Date Provider Diagnosis Siddhartha Penny DO, FACP [address] [place], [place] [phone] 08/27/2024 Siddhartha Penny PLAN OF TREATMENT No Information
== END 2024-11-19 16:15 ==
PROVIDERS: PCP Internal Medicine; Visit Provider Internal Medicine
DX: E66.01 Morbid (severe) obesity due to excess calories (principal); J98.4 Other disorders of lung; G47.33 Obstructive sleep apnea (adult) (pediatric); J30.9 Allergic rhinitis, unspecified
CPT/HCPCS: 99214

== ENCOUNTER → 2024-11-19 15:26 | Outpatient (BNVA) | payer OTHER, SELFPAY | PROVIDERS: PCP Internal Medicine; Visit Provider Internal Medicine ==

== ENCOUNTER 2024-12-10 07:34 | Day surgery (SDC) | payer OTHER, SELFPAY ==
[2024-11-28 09:09] VITALS: BMI 47.6
[2024-11-28 09:59] VITALS: BMI 47.6
--- NOTE | 2024-11-30 12:47 | P.CONAN_ITS ---
Documented by User: Annmarie Birmingham NP 11/30/24 13:00 HPI - Anesthesia Eval Consult details Narrative: 64yo M for Colonoscopy BMI 47 *Unable to lay flat per pt* Pulmo optimized. [place] [facility] [place] MAXI, allergic rhinitis Cardiac optimized. Follows [facility] cardiology for bifasicular block PMFSH Active Problems Active Problems: All Active Problems Cubital tunnel syndrome on right (Acute) Numbness of right hand (Acute) Allergic rhinitis (Acute) Orthopnea (Acute) Shortness of breath (Acute) Restrictive lung disease (Acute) MAXI (obstructive sleep apnea) (Acute) Morbid obesity (Acute) Past Medical History Medical History Heartburn Lymphedema Prostate cancer Positive colorectal cancer screening using Cologuard test (07/27/24) Allergic rhinitis Orthopnea Shortness of breath Restrictive lung disease MAXI (obstructive sleep apnea) Morbid obesity Migraine Hypothyroid High cholesterol Hypertension Family History Family history of problems with anesthesia: No Surgical History Surgical History Hx of right inguinal hernia repair History of esophagogastroduodenoscopy (EGD) H/O colonoscopy History of Problems with Anesthesia: Unobtainable Social History Social History Are you a primary career development manager to a significant other at home: No Do you presently have visiting nurse or other home services: No Patient Tobacco Use Status: Never used Tobacco Second Hand Smoke Exposure: No Use of substances other than those prescribed or required for medical reasons: No Have you been hit, kicked, punched, or otherwise hurt by someone within the past year? 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 Cultural Healthcare Practices: none Are you DNR?: No Advance Directives Information Provided: Yes (as above noted) Advance Directives on File: No Recently lost weight without trying: No Eating poorly because of decreased appetite: No Nutrition Risks: No Nutritional Risk Poor oral hygiene: No (upper partial denture) Current occupational status: retired Current occupation: right hand dominant Meds Allergies Allergy/AdvReac Type Severity Reaction Status Date / Time bee pollen [BEE STINGS] Allergy Severe SWELLING Verified 12/10/24 07:55 lobster Allergy Severe Swelling Verified 12/10/24 07:55 Home Medications ?Medication ?Instructions ?Recorded ?Confirmed ?Last Taken ?Type aspirin 81 mg tablet,delayed 81 mg PO DAILY 03/01/23 12/10/24 12/03/24 History release (Adult Low Dose Aspirin) atorvastatin 80 mg tablet 80 mg PO DAILY 03/01/23 12/10/24 04/24/23 History fexofenadine 180 mg tablet 180 mg PO DAILY 03/01/23 12/10/24 04/24/23 History (Allergy Relief (fexofenadine)) gemfibrozil 600 mg tablet 600 mg PO BID 03/01/23 12/10/24 04/24/23 History levothyroxine 150 mcg tablet 150 mcg PO QAM 03/01/23 12/10/24 12/10/24 History lisinopril 40 mg tablet 40 mg PO DAILY 03/01/23 12/10/24 04/24/23 History propranolol 60 mg capsule,24 60 mg PO DAILY 03/01/23 12/10/24 12/10/24 History hr,extended release cholecalciferol (vitamin D3) 25 25 mcg PO DAILY 09/15/23 12/10/24 Unknown History mcg (1,000 unit) capsule omega 8-fwn-[id number]-fish oil 100 1 cap PO DAILY 09/15/23 12/10/24 12/03/24 History mg-160 mg-1,000 mg capsule (Fish Oil) furosemide 40 mg tablet 40 mg PO TID 11/15/23 12/10/24 Unknown History topiramate 50 mg tablet 100 mg PO BID migraine 09/13/24 12/10/24 12/10/24 History Exam Height,Weight and Vital Signs: Height 5 ft 10 in Weight 150.593 kg Pertinent Lab Results Pertinent Lab Results: Laboratory Tests 07/20/24 11:51 WBC 4.9 Hgb 12.6 L Plt Count 202 Sodium 140 Potassium 3.9 Chloride 103 Carbon Dioxide 28 BUN 22 H Creatinine 1.51 H Narrative Narrative: EKG 09/2024 [id number] Ventricular Rate: 58 BPM Atrial Rate: 58 BPM P-R Interval: 172 ms QRS Duration: 162 ms Q-T Interval: 446 ms QTC Calculation(Bazett): 437 ms P [place]: 44 degrees R [place]: -67 degrees T [place]: 0 degrees Sinus bradycardia with sinus arrhythmia Right bundle branch block Left anterior fascicular block Bifascicular block Abnormal ECG When compared with ECG of 25-May-2023 12:03, No significant change was found Confirmed by MAGDA BRENNER MD ([id number]) on 10/04/2024 11:46:08 AM ECHO 2022 Summary The left ventricle is normal in size. Wall thickness is mildly increased. Ejection fraction is 55-60%. No definite wall motion abnormalities detected. Diastolic function could not be determined. The left atrium is normal in size. The right ventricle is normal in size. Function is preserved. The right atrium is grossly normal in size. Comparison No prior study available for comparison. Assessment and Plan Assessment Anesthesia Assessment: Chart Reviewed Final Anesthetic Review Family History of Problems with Anesthesia: No History of Problems with Anesthesia: Unobtainable Documented by User: Chun Covington MD 12/10/24 17:00 [facility] Past Medical History Medical History Heartburn Lymphedema Prostate cancer Positive colorectal cancer screening using Cologuard test (07/27/24) Allergic rhinitis Orthopnea Shortness of breath Restrictive lung disease MAXI (obstructive sleep apnea) Morbid obesity Migraine Hypothyroid High cholesterol Hypertension Surgical History Surgical History Hx of right inguinal hernia repair History of esophagogastroduodenoscopy (EGD) H/O colonoscopy History of Problems with Anesthesia: No Social History Social History Are you a primary career development manager to a significant other at home: No Do you presently have visiting nurse or other home services: No Patient Tobacco Use Status: Never used Tobacco Second Hand Smoke Exposure: No Use of substances other than those prescribed or required for medical reasons: No Have you been hit, kicked, punched, or otherwise hurt by someone within the past year? 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 Cultural Healthcare Practices: none Are you DNR?: No Advance Directives Information Provided: Yes (as above noted) Advance Directives on File: No Recently lost weight without trying: No Eating poorly because of decreased appetite: No Nutrition Risks: No Nutritional Risk Poor oral hygiene: No (upper partial denture) Current occupational status: retired Current occupation: right hand dominant Meds Allergies Allergy/AdvReac Type Severity Reaction Status Date / Time bee pollen [BEE STINGS] Allergy Severe SWELLING Verified 12/10/24 07:55 lobster Allergy Severe Swelling Verified 12/10/24 07:55 Home Medications ?Medication ?Instructions ?Recorded ?Confirmed ?Last Taken ?Type aspirin 81 mg tablet,delayed 81 mg PO DAILY 03/01/23 12/10/24 12/03/24 History release (Adult Low Dose Aspirin) atorvastatin 80 mg tablet 80 mg PO DAILY 03/01/23 12/10/24 04/24/23 History fexofenadine 180 mg tablet 180 mg PO DAILY 03/01/23 12/10/24 04/24/23 History (Allergy Relief (fexofenadine)) gemfibrozil 600 mg tablet 600 mg PO BID 03/01/23 12/10/24 04/24/23 History levothyroxine 150 mcg tablet 150 mcg PO QAM 03/01/23 12/10/24 12/10/24 History lisinopril 40 mg tablet 40 mg PO DAILY 03/01/23 12/10/24 04/24/23 History propranolol 60 mg capsule,24 60 mg PO DAILY 03/01/23 12/10/24 12/10/24 History hr,extended release cholecalciferol (vitamin D3) 25 25 mcg PO DAILY 09/15/23 12/10/24 Unknown History mcg (1,000 unit) capsule omega 5-vis-rcz-fish oil 100 1 cap PO DAILY 09/15/23 12/10/24 12/03/24 History mg-160 mg-1,000 mg capsule (Fish Oil) furosemide 40 mg tablet 40 mg PO TID 11/15/23 12/10/24 Unknown History topiramate 50 mg tablet 100 mg PO BID migraine 09/13/24 12/10/24 12/10/24 History Exam Airway Mallampati Class: II TM Dist: <=3cm Neck ROM: Full Heart: OK. see above. Lungs: Restrictive lung disease, probably at least moderate, 2? obesity. Assessment and Plan Assessment Anesthesia Assessment: Anesthesia Plan Discussed Final Anesthetic Review History of Problems with Anesthesia: No NPO: Yes ASA Class: III and IV Final Preanesthetic Review: No Changes in Pt Med Stat, Meds/Allgs Chart Reviewed, Consent Obtained/Reviewed and Anes Risks/Benef Reviewed Patient Risk: High Procedure Risk: Low Anesthetic Plan Anesthetic Plan: MAC:, Agree w/ Assess. and Plan and TIVA Disposition: Standard PACU
[2024-12-10 08:07] VITALS: BP 145/88; PULSE 81; RESP 20; TEMP 37.2; O2SAT 98
[2024-12-10] MEDS: Lactated Ringers 1,000 ML 100 ML IVCONT (08:14)
[2024-12-10 09:47] VITALS: BP 92/52; PULSE 83; RESP 20; TEMP 36.5; O2SAT 96
--- NOTE | 2024-12-10 09:47 | PM.OP ---
Brief Operative Note Date of Service: 12/10/24 Pre-op diagnosis: + Cologuard Post-op diagnosis: other (Colon polyp) Procedure: Colonoscopy to the cecum with hot snare polypectomy Surgeon: Siddhartha Church MD Anesthesia: MAC Was an Emergency Room Clerk used for this Procedure?: No Estimated blood loss (mL): 0 Pathology: other (A. Transverse colon polyp) Condition: stable Disposition: PACU
[2024-12-10 10:02] VITALS: BP 147/86; PULSE 67; RESP 16; TEMP 36.5; O2SAT 97
--- NOTE | 2024-12-10 10:44 | OP_ITS ---
DATE OF SERVICE: 12/10/2024 SURGEON: Siddhartha Church MD INDICATIONS: The patient presents for evaluation of a positive Cologuard test. Full consent has been obtained from him for this, including risks of bleeding and perforation. PREOPERATIVE DIAGNOSIS: Positive Cologuard test. POSTOPERATIVE DIAGNOSIS: PROCEDURE PERFORMED: Colonoscopy to the cecum with hot snare polypectomy x1. ESTIMATED BLOOD LOSS: COMPLICATIONS: ANESTHESIA: Medication used, monitored anesthesia care. ASSISTANTS: SPECIMENS: POSTOPERATIVE DIAGNOSES: Positive Cologuard test, colon polyp, diverticulosis, and internal hemorrhoids. DESCRIPTION OF PROCEDURE: The patient was placed in the left lateral decubitus position. The digital rectal exam revealed no abnormalities. The Olympus video pediatric colonoscope was entered into the rectum and advanced to the cecum with the assistance of abdominal pressure. Once in the cecum, I did identify normal-appearing cecal pouch with appendiceal orifice and a normal-appearing ileocecal valve. The entire cecum was well visualized and appeared normal. The scope was then slowly withdrawn assessing all mucosal surfaces carefully. Preparation was excellent. In the region of the transverse colon was an approximately 1 cm polyp on a short stalk, which was snared with a hot snare polypectomy and removed. The polyp was recovered by suction. The polypectomy site appeared clean, without any sign of residual polyp nor bleeding. I did not visualize any other polyps, colitis, nor angiodysplasia. There was a mild to moderate amount of sigmoid diverticulosis and a few diverticula in the ascending colon. In the rectum, scope was retroflexed visualizing some internal hemorrhoids, but no other pathology. The rectal mucosa appeared normal. The scope was straightened and withdrawn from the patient. He tolerated the procedure well and was returned to the recovery area in stable condition. IMPRESSION: 1. Colon polyp. 2. Diverticulosis. 3. Internal hemorrhoids. PLAN: Given that today's findings, I would recommend a repeat colonoscopy in 5 years for further screening as long as he remains clinically stable from a medical standpoint. He was advised not to use any aspirin, NSAIDs, nor fish oil for 1 more week. He will otherwise see me on a p.r.n. basis. MD MARY KAY Schneider/MODESTA / [id number]
== END 2024-12-10 10:37 | disposition home or self-care (01) ==
PROVIDERS: PCP Internal Medicine; Visit Provider Internal Medicine
PROC: 0DJD8ZZ Inspection of Lower Intestinal Tract, Via Natural or Artificial Opening Endoscopic (ICD-10-PCS; CPT 45378; principal; 2024-12-10 08:30)
DX: R19.5 Other fecal abnormalities (principal); Z86.0101 Personal history of adenomatous and serrated colon polyps; D12.3 Benign neoplasm of transverse colon; K57.30 Diverticulosis of large intestine without perforation or abscess without bleeding; K64.8 Other hemorrhoids; K21.9 Gastro-esophageal reflux disease without esophagitis; I10 Essential (primary) hypertension; E78.5 Hyperlipidemia, unspecified; E03.9 Hypothyroidism, unspecified; G43.909 Migraine, unspecified, not intractable, without status migrainosus; C61 Malignant neoplasm of prostate; R60.0 Localized edema; G47.33 Obstructive sleep apnea (adult) (pediatric); Z79.1 Long term (current) use of non-steroidal anti-inflammatories (NSAID); Z79.82 Long term (current) use of aspirin; Z79.899 Other long term (current) drug therapy
CPT/HCPCS: 45385; 88305; J1596; J2003; J2704

== ENCOUNTER 2025-02-01 15:13 | Outpatient (AMB) | payer OTHER, SELFPAY ==
[2025-02-01 15:32] VITALS: BP 139/75; PULSE 54; RESP 16; TEMP 36.3; O2SAT 98; BMI 45.8
--- NOTE | 2025-02-01 15:32 | A.OFFPC_ITS ---
Vital Signs 02/01/25 15:32 Height 5 ft 10 in Weight 319 lb BMI 45.8 BP 139/75 Blood Pressure Location Lt brachial Position Sitting Respiration 16 Pulse 54 Pulse Source Pulse Oximeter Temp 97.4 F Temp Source Temporal Artery Scan Pulse Oximetry (%) 98 Oxygen Delivery Method Room Air Intake Visit Reasons: 6 month follow up Track Manager Required: No Accompanied by: Self / Same As Patient Allergies bee pollen [BEE STINGS] Allergy (Severe, Verified 02/01/25 16:03) SWELLING lobster Allergy (Severe, Verified 02/01/25 16:03) Swelling Medication List - Last Reconciled 02/01/25 by Yocasta Chun PA-C aspirin (Adult Low Dose Aspirin) 81 mg PO DAILY atorvastatin 80 mg PO DAILY lguaalmjhx-eitpuonctdoun-tmbg 50-325-40 mg 1 tab PO QID PRN cholecalciferol (vitamin D3) 25 mcg PO DAILY diltiazem HCl ER (Tiadylt ER) 300 mg PO DAILY fexofenadine (Allergy Relief (fexofenadine)) 180 mg PO DAILY furosemide 40 mg PO TID gemfibrozil 600 mg PO BID 90 days levothyroxine 150 mcg PO QAM lisinopril 40 mg PO DAILY mometasone 50 mcg/actuation 2 sprays intranasal BID omega 2-qxp-wvx-fish oil 100-160-1,000 mg (Fish Oil) 1 cap PO DAILY propranolol ER 60 mg PO DAILY topiramate 100 mg PO BID Tobacco use date assessed: 02/01/25 Fall risk assessment: No Falls in past year Last assessed Fall Risk: 02/01/25 Dental Screening Dental Screen Date: 02/01/25 Did you have a dental visit in the last 12 months?: Yes Did you have a dental problem in the last 6 months where you did not have access to dental care?: No Was dental information given to patient?: Patient has dentist (partial dentures) HPI 6 month follow up HPI Details The patient is a 64-year-old male presenting for routine follow-up and to establish care. He has a history of hypercholesterolemia managed with atorvastatin. There is a documented vitamin D deficiency, and supplementation is ongoing. He also has hypertension controlled with a regimen of diltiazem, lisinopril, and propranolol. His medical history includes paroxysmal supraventricular tachycardia, treated with propranolol, and migraine headaches, for which he uses topiramate and Fioricet. The patient reports chronic anemia since 2019, though without acute symptoms. Chronic kidney disease, potentially linked to past kidney stones, is managed with ongoing monitoring. Impaired glucose tolerance is noted, though no diabetic treatment has been initiated. Prostate cancer is under oncological management, with routine PSA tests. The patient experiences edema, particularly when not using compression stockings. He reports breathlessness with physical activity, suggesting limited exercise tolerance. Additional concerns include elevated liver enzymes identified in prior lab tests and a hiatal hernia, which may exacerbate sleep apnea symptoms. He has experienced difficulties breathing when lying flat. Social History - Family status: ; spouse mention ed in lifestyle context - Exercise: Limited exercise tolerance d ue to breathlessness - Nutritional intake: Consumes sweets, v egetables noted; efforts to manage weight described - Weight management: Patient not intere sted in weight management at this time. [facility] Medical History (Updated 02/01/25 @ 17:39 by Yocasta Chun PA-C) Morbid obesity with body mass index (BMI) of 45.0 to 49.9 in adult Sliding hiatal hernia Elevated liver enzymes Prediabetes History of prostate cancer Chronic anemia CKD (chronic kidney disease) Establishing care with new doctor, encounter for Vitamin D deficiency Mild hypercholesterolemia Heartburn Lymphedema Prostate cancer Positive colorectal cancer screening using Cologuard test (07/27/24) Allergic rhinitis Orthopnea Shortness of breath Restrictive lung disease MAXI (obstructive sleep apnea) Morbid obesity Migraine Hypothyroid High cholesterol Hypertension Surgical History Hx of right inguinal hernia repair History of esophagogastroduodenoscopy (EGD) H/O colonoscopy (12/10/24) Family History Father Stroke Mother No problems noted. Social History Housing: House Are you a primary critical care educator to a significant other at home: No Do you presently have visiting nurse or other home services: No Alcohol intake: current Alcohol intake frequency: does not drink Patient Tobacco Use Status: Never used Tobacco Second Hand Smoke Exposure: No service: No Current occupational status: retired Cognitive needs: No Hearing needs: No Vision needs: Yes (rx glasses) Questionnaire PHQ-9 Over the last 2 weeks, how often have you been bothered by any of the following problems? 1. Little interest or pleasure in doing things: not at all 2. Feeling down, depressed, or hopeless: not at all 3. Trouble falling or staying asleep, or sleeping too much: not at all 4. Feeling tired or having little energy: not at all 5. Poor appetite or overeating: not at all 6. Feeling bad about yourself - or that you are a failure or have let yourself or your family down: not at all 7. Trouble concentrating on things, such as reading the newspaper or watching television: not at all 8. Moving or speaking so slowly that other people could have noticed. Or the opposite - being so fidgety or restless that you have been moving around a lot more than usual: not at all 9. Thoughts that you would be better off or of hurting yourself in some way: not at all Total score: 0 Depression Screening Interpretation: Negative Depression Screening Done: Yes 42584 - PHQ-9 Billing: Yes Source: Developed by Drs. Siddhartha Cisneros, Magda Lisa, Gregor Osman and colleagues, with an educational dexter from [employer]. Thrive Questionnaire Date Thrive assessed: 02/01/25 I am a: Patient What is your living situation today?: I have a steady place to live Within the past 12 months, did the food you bought not last and you didn't have the money to get more?: Never true Within the past 12 months, did you worry whether your food would run out before you got money to buy more?: Never true Do you have trouble paying for medicines?: No Do you have trouble getting transportation to medical appointments?: No Do you have trouble paying your heating and electricity bill?: No Do you have trouble taking care of your child, family member or friend?: No Do you have trouble with day-to-day activities such as bathing, preparing meals, shopping, managing finances, etc.?: No Are you currently unemployed and looking for a job?: No Are you interested in more education?: No Please select the resources that you would like help with: None THRIVE Score: 0 AUDIT C Alcohol Use Questionnaire (AUDIT-C) 1. How often do you have a drink containing alcohol?: Never 3. How often do you have six or more drinks on one occasion?: Never Total Score: 0 Score Reviewed/Action Taken: No RASHAWN-7 AMB Questionnaire ARSHAWN-7 Date RASHAWN - 7 assessed: 02/01/25 Feeling nervous, anxious, or on edge: 0 = Not at all Not being able to stop or control worryin = Not at all Worrying too much about different things: 0 = Not at all Trouble relaxin = Not at all Being so restless that it is hard to sit still: 0 = Not at all Becoming easily annoyed or irritable: 0 = Not at all Feeling afraid as if something awful might happen: 0 = Not at all Total RASHAWN-7 score (0-4 normal; 5-9 mild; 10-14 moderate; 15-21 severe): 0 Source: Developed by Drs. Siddhartha Cisneros, Magda Lisa, Gregor Osman and colleagues, with an educational dexter from [employer]. RASHAWN-7 Assessment Billing RASHAWN-7 Assessment Tool: RASHAWN-7 Assessment 72968 Review of Systems Const Details: - Constitutional: Reports easy fatigability - Cardiovascular: Reports edema, denies chest pain; reports PSVT - Respiratory: Reports breathlessness with activity, denies recent cough or wheezing - Gastrointestinal: Reports hiatal hernia, denies abdominal pain; reports chronic anemia - Renal/Genitourinary: Denies urinary or bowel incontinence - Neurological: Reports migraine headaches - Endocrine: Reports vitamin D deficiency - Musculoskeletal: Denies unexplained weight loss or gain - Hematologic/Lymphatic: Reports chronic anemia; denies lymphadenopathy - Metabolic: Reports history of elevated liver enzymes - General: Reports difficulty breathing when supine due to likely sleep apnea Physical exam (Primary Care) Vital Signs: Last Vital Signs Temp 97.4 F 02/01/25 15:32 Pulse 54 02/01/25 15:32 Resp 16 02/01/25 15:32 BP 146/75 H 02/01/25 15:32 Pulse Ox 98 02/01/25 15:32 Oxygen Delivery Method Room Air 02/01/25 15:32 Care Plan Goal for BP management: <130/90 at Goal BMI result Body Mass Index 45.8 BMI Assessment/Plan discussion: High BMI High, discussed plan: lifestyle, weight reduction, dietary, physical activity and alcohol moderation Tobacco/Smoking Status: Tobacco use Status Tobacco use date assessed 02/01/25 02/01/25 15:34 Patient Tobacco Use Status Never used Tobacco 02/01/25 15:46 PHQ-9: PHQ-9 Score PHQ-9: Total score 0 02/01/25 16:07 Depression Screening Interpretation: Negative Thrive Assessment: Date of Thrive Assessment Date Thrive assessed 02/01/25 02/01/25 15:34 Const Other: Appearance: Alert. Oriented X3. No acute distress. Head: Normal external exam. Normocephalic. Atraumatic. Eyes: Pupils are equal, round, and reactive to light. Extraocular movements intact. Conjunctiva and sclera normal. Eyelids normal. Ears: External auditory canal normal. Tympanic membranes normal. A little bit of wax noted. Throat: Pharynx normal. Uvula midline. Moist mucous membranes. Neck: Normal inspection. Neck supple. Full range of motion. No adenopathy. Thyroid Normal. No meningeal signs. No neck mass noted. Cardiovascular: Normal heart rate and rhythm. Heart sound normal. No murmurs noted. Pulses normal throughout. Respiratory: No respiratory distress. Painless inspiration. Breath sounds normal. No wheezes/rales/rhonchi noted. Chest nontender. No accessory muscle usage noted or decreased air movement noted. Abdomen: Soft and nontender. Bowel sounds normal in all 4 quadrants. No distention noted. No organomegaly noted. No visible injury noted. Back: No costovertebral angle tenderness. Full range of motion noted. Skin: Skin warm and dry. Normal skin color. Normal skin turgor. No rashes/lesions/lacerations noted. Extremities: No lower extremity pitting edema noted. No calf tenderness is noted. Extremities exhibit normal range of motion. Extremities nontender. Neuro: Oriented X 3. No motor deficit. No sensory deficit. Reflexes normal. Results AMB Hemoglobin A1c AMB Hemoglobin A1c 6.3 % Last Edit by SHAVON Ewing on 02/01/25 16:10 Results Reviewed Results Reviewed: Laboratory Last Values Hgb A1c (Clinic) 6.3 % (4.0-6.0) H 02/01/25 16:06 - Labs: - Anemia (chronic since 2019) - Chronic kidney disease: increased BUN and creatinine levels noted - Blood glucose level consistent with impaired glucose tolerance - Elevated AST and alkaline phosphatase levels - Triglycerides elevated at 263 mg/dL; HDL slightly low - Tests and Diagnostics: - Recent echocardiogram and scheduled stress test (details not reviewed) Coding Level of Care Code New Pt Level 4 (19325) Complex EM visit Add On G2211 Diagnoses Establishing care with new doctor, encounter for Z76.89 Mild hypercholesterolemia E78.00 Vitamin D deficiency E55.9 Hypertension I10 CKD (chronic kidney disease) N18.9 Migraine G43.909 Chronic anemia D64.9 History of prostate cancer Z85.46 Prediabetes R73.03 Elevated liver enzymes R74.8 Sliding hiatal hernia K44.9 Morbid obesity with body mass index (BMI) of 45.0 to 49.9 in adult E66.01; Z68.42 Additional Codes RASHAWN-7 Assessment Billing - RASHAWN-7 Assessment Tool: RASHAWN-7 Assessment 81375 ([id number]) PHQ-9 - 27987 - PHQ-9 Billing: Yes ([id number]) Time Spent (min) 40 Assessment & Plan Assessment & Plan (1) Establishing care with new doctor, encounter for: Code(s): Z76.89 - Persons encountering health services in other specified circumstances Category: Medical (2) Mild hypercholesterolemia: Code(s): E78.00 - Pure hypercholesterolemia, unspecified Category: Medical Plan: Continue atorvastatin; reassess lipid levels next visit. Condition is chronic and stable continue to monitor. (3) Vitamin D deficiency: Code(s): E55.9 - Vitamin D deficiency, unspecified Category: Medical Plan: Continue current supplementation pending lab work results. Condition is chronic and stable continue to monitor. (4) Hypertension: Code(s): I10 - Essential (primary) hypertension Category: Medical Plan: Maintain medication regimen aspirin, atorvastatin, diltiazem 300 mg daily, furosemide 40 mg t.i.d., lisinopril 40 mg daily, propranolol extended release 60 mg day; monitor blood pressure at future visits. Blood pressure at goal less than 130/90. Condition is chronic and stable will continue to monitor. (5) CKD (chronic kidney disease): Code(s): N18.9 - Chronic kidney disease, unspecified Category: Medical Plan: Repeat renal panel; consider ultrasound. Condition is chronic and stable will continue to monitor. (6) Migraine: Code(s): G43.909 - Migraine, unspecified, not intractable, without status migrainosus Category: Medical Plan: Continue prescribed migraine therapies with topiramate and propanolol; assess efficacy. Condition is chronic and stable continue to monitor. (7) Chronic anemia: Code(s): D64.9 - Anemia, unspecified Category: Medical Plan: Conduct iron studies; monitor throughout management. Condition is chronic and stable continue to monitor. (8) History of prostate cancer: Code(s): Z85.46 - Personal history of malignant neoplasm of prostate Category: Medical Plan: Patient to continue being followed by urologist. They are monitoring his PSA levels. Condition is chronic and stable continue to monitor. (9) Prediabetes: Code(s): R73.03 - Prediabetes Category: Medical Plan: Monitor glucose, offer lifestyle guidance. Condition is chronic and stable with an A1c level today of 6.3. (10) Elevated liver enzymes: Code(s): R74.8 - Abnormal levels of other serum enzymes Category: Medical Plan: AST 46 and alkaline phosphate 144. Will repeat hepatic test. Condition is chronic and stable continue to monitor. (11) Sliding hiatal hernia: Code(s): K44.9 - Diaphragmatic hernia without obstruction or gangrene Category: Medical Plan: Dietary modifications; gastroenterology consult if needed. (12) Morbid obesity with body mass index (BMI) of 45.0 to 49.9 in adult: Code(s): E66.01 - Morbid (severe) obesity due to excess calories; Z68.42 - Body mass index [BMI] 45.0-49.9, adult Category: Medical Plan: Patient to improve his diet and exercise regimen. Condition is chronic and stable will continue to monitor. Plan Plan Patient was informed and verbally consented to the use of an ambient scribe for clinic note documentation during this visit. 1. Hypercholesterolemia Continue atorvastatin; reassess lipid levels next visit. 2. Hypertension Maintain medication regimen; monitor blood pressure at future visits. 3. Vitamin D Deficiency Continue current supplementation pending lab work results. 4. Chronic Kidney Disease, Unspecified Repeat renal panel; consider ultrasound. 5. Migraine Headaches Continue prescribed migraine therapies; assess efficacy. 6. Anemia, Unspecified Conduct iron studies; monitor throughout management. 7. Prostate Cancer Conduct PSA testing; continue oncologist oversight. 8. Impaired Glucose Tolerance Monitor glucose, offer lifestyle guidance. 9. Edema, Unspecified Consider compression; evaluate fluid retention. 10. Elevated Liver Enzymes Repeat hepatic tests at next visit. 11. Hiatal Hernia Dietary modifications; gastroenterology consult if needed. 12. Sleep Apnea Reassess potential for intervention. During today's appointment, we discussed the patient's various chronic conditions, including hypercholesterolemia, hypertension, and prostate cancer. I emphasized the importance of continuing his current medications and maintaining regular monitoring of blood pressure and PSA levels. We explored the patient's recent lab results that showed impaired glucose tolerance and elevated cholesterol levels, and I recommended lifestyle changes such as reducing sugary intake to address these issues. We discussed new findings in his renal profile and the need for a repeat panel and possibly a renal ultrasound. I advised the patient on the importance of monitoring symptomatic anemia and discussed possible causes, including nutritional deficiencies. Additionally, there was a conversation about symptom management regarding edema and options for weight loss that might relieve related sleep apnea symptoms. Follow-up blood work was ordered to reassess liver enzymes due to elevations noted. Finally, I discussed the importance of vigilant medication adherence and follow-up care, suggesting that his collaboration with his oncologist be continued for prostate cancer management. Orders: Orders Complete Blood Count Auto Diff Today Z00.00 - Encounter for general adult medical examination without abnormal findings Vitamin B12 and Folate Today Z00.00 - Encounter for general adult medical examination without abnormal findings TSH reflex Free T4 Today Z00.00 - Encounter for general adult medical e xamination without abnormal findings Erythrocyte Sedimentation Rate Today Z00.00 - Encounter for general adult medical examination without abnormal findings IRON PROFILE Today D64.9 - Anemia, unspecified AMB Hemoglobin A1c Today Z13.9 - Encounter for screening, unspecified C Reactive Protein Today Z00.00 - Encounter for general adult medical examination without abnormal findings Comprehensive [place]. Panel Fast Today Z00.00 - Encounter for general adult medical examination without abnormal findings Liver Panel Today Z00.00 - Encounter for general adult medical examination without abnormal findings Lipid Panel Today Z00.00 - Encounter for general adult medical examination without abnormal findings Vitamin D 25-OH Total Today Z00.00 - Encounter for general adult medical examination without abnormal findings Magnesium Today Z00.00 - Encounter for general adult medical examination without abnormal findings Ferritin Today D64.9 - Anemia, unspecified B Type Natriuretic Peptide Today R60.0 - Localized edema US abdomen complete Today N18.9 - Chronic kidney disease, unspecified, R74.8 - Abnormal levels of other serum enzymes Patient Instructions: - Continue taking all prescribed medications as directed. - Decrease sugar in diet to help manage cholesterol and glucose levels. - Wear compression stockings as directed to manage leg swelling. - Obtain lab tests as ordered prior to the next visit and ensure they are completed when fasting. - Monitor and report any new symptoms such as unintentional weight loss, increased swelling, or difficulty breathing. - Schedule and attend all follow-up appointments with specialists, including PSA tests for prostate cancer monitoring. - Consider dietary changes to alleviate symptoms related to hiatal hernia and impaired glucose tolerance.
== END 2025-02-01 16:32 | disposition home or self-care (01) ==
LOC: HO.HMCSH 15:13
PROVIDERS: PCP Internal Medicine; Visit Provider Physician Assistant Medical
DX: Z76.89 Persons encountering health services in other specified circumstances (principal); E78.00 Pure hypercholesterolemia, unspecified; E55.9 Vitamin D deficiency, unspecified; I12.9 Hypertensive chronic kidney disease with stage 1 through stage 4 chronic kidney disease, or unspecified chronic kidney disease; N18.9 Chronic kidney disease, unspecified; G43.909 Migraine, unspecified, not intractable, without status migrainosus; D64.9 Anemia, unspecified; Z85.46 Personal history of malignant neoplasm of prostate; R73.03 Prediabetes; R74.8 Abnormal levels of other serum enzymes; K44.9 Diaphragmatic hernia without obstruction or gangrene; E66.01 Morbid (severe) obesity due to excess calories; Z68.42 Body mass index [BMI] 45.0-49.9, adult; Z13.9 Encounter for screening, unspecified

== ENCOUNTER → 2025-02-01 15:13 | Outpatient (BNVA) | payer OTHER, SELFPAY | PROVIDERS: PCP Internal Medicine; Visit Provider Physician Assistant Medical | DX: Z76.89 Persons encountering health services in other specified circumstances (principal); E78.00 Pure hypercholesterolemia, unspecified; E55.9 Vitamin D deficiency, unspecified; I12.9 Hypertensive chronic kidney disease with stage 1 through stage 4 chronic kidney disease, or unspecified chronic kidney disease; N18.9 Chronic kidney disease, unspecified; G43.909 Migraine, unspecified, not intractable, without status migrainosus; D64.9 Anemia, unspecified; R73.03 Prediabetes; R74.8 Abnormal levels of other serum enzymes; K44.9 Diaphragmatic hernia without obstruction or gangrene; E66.01 Morbid (severe) obesity due to excess calories; Z68.42 Body mass index [BMI] 45.0-49.9, adult; Z85.46 Personal history of malignant neoplasm of prostate; Z79.82 Long term (current) use of aspirin; Z79.899 Other long term (current) drug therapy | CPT/HCPCS: 83036; 96127 ==

== ENCOUNTER 2025-02-25 07:44 | Outpatient (REF) | payer OTHER, SELFPAY ==
--- NOTE | ~2025-02-25 | US_ITS ---
EXAMINATION: US ABDOMEN HISTORY: R74.8 - Abnormal levels of other serum enzymes TECHNIQUE: Real-time grayscale ultrasound imaging of the abdomen was performed and images were reviewed. COMPARISON: There are no prior studies available for comparison. FINDINGS: Liver: The right lobe of the liver measures 24.2 cm in size. The left lobe of the liver measures 11.0 cm in size. The liver demonstrates increased echotexture, consistent with steatosis. There is a 1.4 cm cyst in the left lobe. No intrahepatic biliary ductal dilatation is identified. There is normal hepatopedal flow in the portal vein. Gallbladder and biliary tree: The gallbladder is unremarkable, without evidence of calculi, wall thickening, or pericholecystic fluid. There is no sonographic Ruiz sign. The common bile duct is normal in caliber measuring 5 mm. Kidneys: The right kidney measures 13.2 cm in length. The left kidney measures 13.7 cm in length. There is a cluster of calculi in the interpolar region of the left kidney measuring up to 1.3 cm in size. There is no hydronephrosis. Pancreas: The pancreas is obscured by bowel gas. Spleen: The spleen is normal in size and contour, measuring 13.1 cm in length. Abdominal aorta and inferior vena cava: The visualized portions of the abdominal aorta and inferior vena cava are normal in caliber. There is no free fluid in the abdomen. US/US abdomen complete IMPRESSION: 1. Hepatosplenomegaly and hepatic steatosis. 2. Left nephrolithiasis without evidence of ureteral obstruction. 3. The pancreas is not visualized. Electronically signed by: Siddhartha Lowe MD 02/25/2025 09:00 AM EDT
== END 2025-02-25 07:45 | disposition home or self-care (01) ==
LOC: HO.US 07:44
PROVIDERS: PCP Physician Assistant Medical; Visit Provider Physician Assistant Medical
DX: R74.8 Abnormal levels of other serum enzymes (principal); N18.9 Chronic kidney disease, unspecified
CPT/HCPCS: 76700

== ENCOUNTER → 2025-02-25 07:50 | Outpatient (BNV) | payer OTHER, SELFPAY | PROVIDERS: PCP Physician Assistant Medical; Visit Provider Radiology Diagnostic Radiology | DX: R16.2 Hepatomegaly with splenomegaly, not elsewhere classified (principal) | CPT/HCPCS: 76700 ==

== ENCOUNTER 2025-04-09 11:09 | Outpatient (REF) | payer OTHER, SELFPAY ==
[2025-04-09 11:25] LABS: MANUAL DIFF FLAG NO
[2025-04-09 11:38] LABS: Hematocrit 40.3 % (42.0-52.0); Hemoglobin 12.9 g/dl (14.0-18.0); Imm Gran Abs Auto 0.03 X10*3/uL (0.00-0.03); Imm Gran Pct Auto 0.5 % (0.0-0.4); Lymphocytes Absolute Auto 1.7 X10*3/uL (1.2-4.9); Mean Corpuscular HGB Conc 32.0 g/dl (31.0-36.0); Mean Corpuscular Hemoglobin 28.9 pg (27.0-33.0); Mean Corpuscular Volume 90.4 fL (80.0-98.0); NRBC Abs Auto 0.000 X10*3/uL (0.0-0.012); NRBC Pct Auto 0.0 /100WBC (0.0-0.2); Platelet Count 201 X10*3/uL (160-400); Red Blood Count 4.46 X10*6/uL (4.60-5.80); White Blood Count 5.6 X10*3/uL (4.8-10.8)
[2025-04-09 12:13] LABS: B Type Natriuretic Peptide 16 pg/mL (<100)
[2025-04-09 12:29] LABS: Alanine Aminotransferase 22 U/L (0-40); Albumin Level 4.4 g/dL (3.5-5.0); Alkaline Phosphatase 160 U/L (39-117); Anion Gap 13 (12-20); Aspartate Amino Transferase 24 U/L (5-37); Blood Urea Nitrogen 24 mg/dL (9-16); Calcium 9.5 mg/dL (8.4-10.2); Carbon Dioxide 28 mmol/L (22-29); Chloride 104 mmol/L (96-108); Cholesterol 214 mg/dL (<200); Estimated Glomerular Filt Rate 42; HDL Cholesterol 32 mg/dL (>40); Iron 75 mcg/dL (45-160); Magnesium 2.2 mg/dL (1.6-2.6); Percent Iron Saturation 28 % (15-50); Potassium 4.2 mmol/L (3.3-5.1); Sodium 141 mmol/L (135-145); Total Iron Binding Capacity 264 mcg/dL (228-428); Total Protein 7.6 g/dL (6.5-8.0); Triglycerides 260 mg/dL (<150); Unsaturated Iron Binding 189 ug/dL
[2025-04-09 12:32] LABS: Ferritin 106 ng/mL (20-250)
[2025-04-09 12:42] LABS: Folate 11.4 ng/mL (> or = 4.0); Vitamin B12 545 pg/mL (200-900)
[2025-04-09 13:06] LABS: Free T4 (Free Thyroxine) 0.76 ng/dL (0.71-1.85)
== END 2025-04-09 11:10 | disposition home or self-care (01) ==
LOC: HO.LAB 11:09
PROVIDERS: PCP Internal Medicine; Visit Provider Physician Assistant Medical
DX: Z00.00 Encounter for general adult medical examination without abnormal findings (principal); D64.9 Anemia, unspecified; R60.0 Localized edema
CPT/HCPCS: 36415; 80053; 80061; 80076; 82248; 82306; 82607; 82728; 82746; 83540; 83735; 83880; 84439; 84443; 85025; 85652; 86140

== ENCOUNTER 2025-04-15 14:21 | Outpatient (AMB) | payer OTHER, SELFPAY ==
--- NOTE | 2025-04-15 14:50 | A.OFFVIS_ITS ---
Vital Signs 04/15/25 14:50 Height 5 ft 10 in Intake Visit Reasons: 2 months Allergies bee pollen (BEE STINGS) Allergy (Severe, Verified 04/15/25 14:55) SWELLING lobster Allergy (Severe, Verified 04/15/25 14:55) Swelling Medication List - Last Reconciled 04/15/25 by Helene Berry CNP aspirin (Adult Low Dose Aspirin) 81 mg PO DAILY uqswgrsfrl-fnjjdtkwezhwm-ggxk 50-325-40 mg 1 tab PO QID PRN cetirizine 10 mg PO DAILY PRN cholecalciferol (vitamin D3) 25 mcg PO DAILY diltiazem HCl ER (Tiadylt ER) 300 mg PO DAILY fexofenadine (Allergy Relief (fexofenadine)) 180 mg PO DAILY 90 days fremanezumab-vfrm (Ajovy) 225 mg subcut .monthly furosemide 40 mg PO TID 90 days gemfibrozil 600 mg PO BID 90 days levothyroxine 150 mcg PO QAM lisinopril 40 mg PO DAILY mometasone 50 mcg/actuation 2 sprays intranasal BID omega 6-czq-zya-fish oil 100-160-1,000 mg (Fish Oil) 1 cap PO DAILY propranolol ER 60 mg PO DAILY rosuvastatin (Crestor) 20 mg PO BEDTIME topiramate 100 mg PO BID HPI Comments Details: 65-year-old man with diabetes, obesity, HTN, hypothyroidism, and migraine headache. He was not able to start Ajovy. Headaches usually happened between 2-4am when he woke to use the bathroom during the night and also around mid-afternoon. Headaches were associated with photophobia, sonophobia, nausea and sometimes vomiting. Butalbital as needed helped. He was under more stress lately related to repairs on dream home and finances, and thought this may be trigger. Sleep was not so good, waking few times during the night. [facility] Medical History (Updated 04/15/25 @ 14:52 by Helene Berry CNP) Lesion of ulnar nerve, right upper limb Nephrolithiasis Morbid obesity with body mass index (BMI) of 45.0 to 49.9 in adult Sliding hiatal hernia Elevated liver enzymes Prediabetes History of prostate cancer Chronic anemia CKD (chronic kidney disease) Establishing care with new doctor, encounter for Vitamin D deficiency Mild hypercholesterolemia Heartburn Lymphedema Prostate cancer Positive colorectal cancer screening using Cologuard test (07/27/24) Allergic rhinitis Orthopnea Shortness of breath Restrictive lung disease MAXI (obstructive sleep apnea) Morbid obesity Migraine Hypothyroid High cholesterol Hypertension Surgical History Hx of right inguinal hernia repair History of esophagogastroduodenoscopy (EGD) H/O colonoscopy (12/10/24) Family History Father Stroke Mother No problems noted. Social History Housing: House Are you a primary hourly caregiver to a significant other at home: No Do you presently have visiting nurse or other home services: No Alcohol intake: current Alcohol intake frequency: does not drink Patient Tobacco Use Status: Never used Tobacco Second Hand Smoke Exposure: No service: No Current occupational status: retired Cognitive needs: No Hearing needs: No Vision needs: Yes (rx glasses) Review of Systems Const Denies chills, Denies daytime sleepiness, Reports difficulty sleeping, Denies fatigue, Denies fever(s), Denies frequent falls, Reports headache(s), Denies increased appetite, Denies poor appetite, Denies snoring, Denies weakness, Denies weight gain and Denies weight loss Eyes Denies loss of vision ENT Denies vertigo, Denies dizziness and Reports headache(s) Card Denies chest pain at rest, Denies chest pain with activity, Denies syncope, Denies leg edema and Denies palpitations Resp Denies snoring GI Denies constipation, Denies heartburn, Denies diarrhea and Denies nausea Denies urinary frequency, Denies urinary incontinence and Denies urinary urgency Musc Denies abnormal gait, Denies numbness and Denies tingling Skin/Breast Denies dry skin and Denies rash Neuro Denies abnormal gait, Denies vertigo, Denies dizziness, Denies syncope, Denies frequent falls, Reports headache(s), Denies lack of coordination, Denies loss of vision, Denies memory loss, Denies numbness, Denies restless legs, Denies seizure-like activity, Denies tingling, Denies paresthesias, Denies tremor(s) and Denies weakness Psych Denies anxiety, Denies depression, Denies auditory hallucinations, Denies memory loss, Denies visual hallucinations, Denies suicidal ideation and Reports other (stress) Endo Denies fatigue and Denies palpitations Physical Exam Const Other: General Appearance:? normal, in no acute distress. Skin:? no rashes, no significant birthmarks. Heart:? S1, S2 normal, no murmurs. Lungs:? clear anteriorly and posteriorly. Extremities:? no edema. Psych:? alert, oriented, cognitive function intact, cooperative with exam. Neuro Other: Mental Status:?Normal attention, orientation, memory and affect.? Cranial Nerves:?Pupils are equal, round and reactive to light. External occular muscles are intact. Visual tena are full. Face is symmetrical. Facial sensations are normal. Tongue is midline. Palate elevates symmetrically. Shoulder shrugging is normal. Hearing to bedside conversation is normal. Motor Examination:?Normal muscle tone, bulk and strength,?Deep tendon reflexes are 2+,?Plantars are flexor.? Sensory Exam:?....? Coordination:?No ataxia,?no titubation.? Gait Exam: Within normal limits. Cerebellar Signs:?Ycffwv-cs-xedc and halo-gq-gzjm is normal.? Extrapyramidal System:?No tremor, rigidity with normal facial expressions.? Pronator Drift:?Not present.? Involuntary Movements:?No tremors seen.? Speech:?Normal.? Assessment & Plan Assessment & Plan (1) Migraine: Code(s): G43.909 - Migraine, unspecified, not intractable, without status migrainosus Category: Medical Qualifiers: Migraine type: unspecified Status migrainosus presence: without status migrainosus Intractability: not intractable Qualified Code(s): G43.909 - Migraine, unspecified, not intractable, without status migrainosus Plan: Will try to resend Bigg. He was not interested in as needed medication for nausea/vomiting at this time. He was also not interested in trying medication for anxiety/stress at this time. Reviewed labs ordered. Continue topiramate 100mg 1 tablet twice a day Continue ehbepsiono-CQYO-ityr 50-325-40mg 1-2 tablets as needed for headache once a day #10 for 30 days Plan Meds tried: topiramate, did not try amitriptyline due to side effects, propranolol, venlafaxine Orders: Orders CRP High Sensitivity Today G43.909 - Migraine, unspecified, not intractable, without status migrainosus Erythrocyte Sedimentation Rate Today G43.909 - Migraine, unspecified, not intractable, without status migrainosus Medications: New fremanezumab-vfrm (Ajovy) 225 mg (1.5 mL) subcut Q1M 1.5 mL 5RF 30 days Discontinued fremanezumab-vfrm (Ajovy) Discontinued Reason: Order 225 mg subcut .monthly Coding Level of Care Code Est Pt Level 3 (06544) Diagnoses Migraine without status migrainosus, not intractable, unspecified migraine type G43.909 Migraine type: unspecified Status migrainosus presence: without status migrainosus Intractability: not intractable
== END 2025-04-15 15:12 | disposition home or self-care (01) ==
LOC: HO.HSM 14:22
PROVIDERS: PCP Internal Medicine; Visit Provider Registered Nurse
DX: G43.909 Migraine, unspecified, not intractable, without status migrainosus (principal)
CPT/HCPCS: 99213

== ENCOUNTER 2025-04-15 14:21 | Outpatient (REF) | payer OTHER, SELFPAY ==
[2025-04-15 17:46] LABS: Free T4 (Free Thyroxine) 0.88 ng/dL (0.71-1.85)
== END 2025-04-15 14:22 | disposition home or self-care (01) ==
LOC: HO.LAB 14:21
PROVIDERS: Physician Assistant Medical; Visit Provider Registered Nurse
DX: G43.909 Migraine, unspecified, not intractable, without status migrainosus (principal); E03.9 Hypothyroidism, unspecified
CPT/HCPCS: 36415; 84439; 84443; 85652; 86141

== ENCOUNTER 2025-05-06 14:18 | Outpatient (AMB) | payer OTHER, SELFPAY ==
[2025-05-06 14:25] VITALS: BP 120/70; PULSE 65; O2SAT 96; BMI 46.5
--- NOTE | 2025-05-06 14:25 | HO.NEPHOV_ITS ---
Vital Signs 05/06/25 14:25 Height 5 ft 10 in Weight 324 lb BMI 46.5 BP 120/70 Blood Pressure Location Lt brachial Position Sitting Pulse 65 Pulse Source Pulse Oximeter Pulse Oximetry (%) 96 Oxygen Delivery Method Room Air Intake Visit Reasons: INP: CKD/Calculus of kidney-Conf Assistant Grocery Store Manager Required: No Accompanied by: Spouse Allergies bee pollen (BEE STINGS) Allergy (Severe, Verified 05/06/25 14:27) SWELLING lobster Allergy (Severe, Verified 05/06/25 14:27) Swelling Medication List - Last Reconciled 05/06/25 by Vimal Her MD aspirin (Adult Low Dose Aspirin) 81 mg PO DAILY nwjmzyguhh-ffbxzebpboako-hxon 50-325-40 mg 1 tab PO QID PRN cholecalciferol (vitamin D3) 25 mcg PO DAILY diltiazem HCl ER (Tiadylt ER) 300 mg PO DAILY fexofenadine (Allergy Relief (fexofenadine)) 180 mg PO DAILY 90 days furosemide 40 mg PO TID 90 days gemfibrozil 600 mg PO BID 90 days ibuprofen 800 mg PO TID PRN levothyroxine 150 mcg PO QAM lisinopril 40 mg PO DAILY mometasone 50 mcg/actuation 2 sprays intranasal BID omega 3-zla-jps-fish oil 100-160-1,000 mg (Fish Oil) 1 cap PO DAILY propranolol ER 60 mg PO DAILY rosuvastatin (Crestor) 20 mg PO BEDTIME topiramate 100 mg PO BID HPI Comments Details: The patient is a 65-year-old male presenting with decreased kidney function. He has a history of nephrolithiasis, with past kidney stones but no recent issues or interventions. Chronic kidney disease is noted, with a decline in kidney function from 47% in June to 42% in March, showing a gradual decrease over three years. Lymphedema has been present few years, causing leg swelling managed with compression therapy. He is on Lasix 40 mg TID with minimal improvement The patient is monitored for stage I prostate cancer, with a PSA level of 5.1, lower than the previous year. Essential hypertension is managed with lisinopril, Cardizem , with stable blood pressure readings of 120/70 mmHg and 120/60 mmHg. The patient also reports hyperlipidemia, migraine managed with topiramate, cubital tunnel syndrome, and a hiatal hernia contributing to breathing difficulties when supine. h/o MAXI and Obesity. Does not use CPAP [facility] Medical History (Updated 04/15/25 @ 14:52 by Helene Berry CNP) Lesion of ulnar nerve, right upper limb Nephrolithiasis Morbid obesity with body mass index (BMI) of 45.0 to 49.9 in adult Sliding hiatal hernia Elevated liver enzymes Prediabetes History of prostate cancer Chronic anemia CKD (chronic kidney disease) Establishing care with new doctor, encounter for Vitamin D deficiency Mild hypercholesterolemia Heartburn Lymphedema Prostate cancer Positive colorectal cancer screening using Cologuard test (07/27/24) Allergic rhinitis Orthopnea Shortness of breath Restrictive lung disease MAXI (obstructive sleep apnea) Morbid obesity Migraine Hypothyroid High cholesterol Hypertension Surgical History Hx of right inguinal hernia repair History of esophagogastroduodenoscopy (EGD) H/O colonoscopy (12/10/24) Family History Father Stroke Mother No problems noted. Social History Housing: House Are you a primary personal care assistant to a significant other at home: No Do you presently have visiting nurse or other home services: No Alcohol intake: current Alcohol intake frequency: does not drink Patient Tobacco Use Status: Never used Tobacco Second Hand Smoke Exposure: No service: No Current occupational status: retired Cognitive needs: No Hearing needs: No Vision needs: Yes (rx glasses) Review of Systems Const Denies fever(s) and Denies weight loss Card Denies chest pain Resp Denies cough and Denies hemoptysis GI Denies abdominal pain, Denies diarrhea and Denies nausea Musc Denies back pain Neuro Denies focal weakness Physical Exam Vital Signs: Last Vital Signs Pulse 65 05/06/25 14:25 BP 120/70 05/06/25 14:25 Pulse Ox 96 05/06/25 14:25 Oxygen Delivery Method Room Air 05/06/25 14:25 BMI result Body Mass Index 46.5 Comfortable . Obese Neck supple no JVD. Lungs entry equal no rales. Heart S1-S2 heard no gallop or rub. Abdomen soft nontender. Neuro alert awake oriented. No asterixis. Extremities edema + non pitting. Results Reviewed Nephrology Results: Hgb, (14.0-18.0) 12.9 g/dl L 04/09/25 WBC, (4.8-10.8) 5.6 X10*3/uL 04/09/25 Plt Count, (160-400) 201 X10*3/uL 04/09/25 Sodium, (135-145) 141 mmol/L 04/09/25 Potassium, (3.3-5.1) 4.2 mmol/L 04/09/25 Chloride, (96-108) 104 mmol/L 04/09/25 Carbon Dioxide, (22-29) 28 mmol/L 04/09/25 BUN, (9-16) 24 mg/dL H 04/09/25 Creatinine, (0.5-1.4) 1.65 mg/dL H 04/09/25 Calcium, (8.4-10.2) 9.5 mg/dL 04/09/25 Assessment & Plan Assessment & Plan (1) Hypertension: Code(s): I10 - Essential (primary) hypertension Category: Medical (2) CKD (chronic kidney disease): Code(s): N18.9 - Chronic kidney disease, unspecified Category: Medical Plan 65-year-old man with chronic kidney disease in the setting of longstanding hypertension obesity and lymphedema. There could be a component of acute kidney injury from hypoperfusion from the combination of NILAM inhibitors on high dose of diuretics. No evidence of obstruction based on recent ultrasonogram. Recent urinalysis was reportedly benign without any blood or protein therefore glomerular nephritis seem unlikely at this time. Recommendations Low-salt diet Decrease Lasix to 40 mg p.o. b.i.d. from t.i.d. Keep all other medications the same for now. Continue with compression stockings , leg elevation whenever possible. Goal would be to gradually lower the diuretic and lisinopril as clinically tolerated while maintain blood pressure less than 130/80. Continue to avoid nephrotoxic agents including NSAIDs. Further workup will depend on the outcome of the above baseline investigations. He returned to office in the next few weeks Orders: Orders UA and rflx microscopic Today I10 - Essential (primary) hypertension, N18.9 - Chronic kidney disease, unspecified Total Protein Urine Random Today I10 - Essential (primary) hypertension, N18.9 - Chronic kidney disease, unspecified Creatinine Urine Today I10 - Essential (primary) hypertension, N18.9 - Chronic kidney disease, unspecified Comprehensive Met. Panel 1 Week I10 - Essential (primary) hypertension Coding Level of Care Code New Pt Level 4 (25763) Diagnoses Hypertension I10 CKD (chronic kidney disease) N18.9
== END 2025-05-06 14:53 | disposition home or self-care (01) ==
LOC: HO.HKA 14:19
PROVIDERS: PCP Internal Medicine; Referring Provider Physician Assistant Medical; Visit Provider Internal Medicine Hypertension Specialist
DX: I12.9 Hypertensive chronic kidney disease with stage 1 through stage 4 chronic kidney disease, or unspecified chronic kidney disease (principal); N18.9 Chronic kidney disease, unspecified
CPT/HCPCS: 99204

== ENCOUNTER 2025-05-13 10:41 | Outpatient (REF) | payer OTHER, SELFPAY ==
[2025-05-13 12:01] LABS: Alanine Aminotransferase 21 U/L (0-40); Albumin Level 4.2 g/dL (3.5-5.0); Alkaline Phosphatase 133 U/L (39-117); Anion Gap 12 (12-20); Aspartate Amino Transferase 22 U/L (5-37); Blood Urea Nitrogen 23 mg/dL (9-16); Calcium 9.1 mg/dL (8.4-10.2); Carbon Dioxide 25 mmol/L (22-29); Chloride 108 mmol/L (96-108); Estimated Glomerular Filt Rate 47; Potassium 4.1 mmol/L (3.3-5.1); Sodium 141 mmol/L (135-145); Total Protein 7.4 g/dL (6.5-8.0)
[2025-05-13 12:59] LABS: Total Protein Urine Random 17 mg/dL (<12)
== END 2025-05-13 10:42 | disposition home or self-care (01) ==
LOC: HO.LAB 10:41
PROVIDERS: PCP Internal Medicine; Visit Provider Internal Medicine Hypertension Specialist
DX: I12.9 Hypertensive chronic kidney disease with stage 1 through stage 4 chronic kidney disease, or unspecified chronic kidney disease (principal); N18.9 Chronic kidney disease, unspecified
CPT/HCPCS: 36415; 80053; 81001; 81003; 82570; 84156

== ENCOUNTER 2025-06-03 15:30 | Outpatient (AMB) | payer OTHER, SELFPAY ==
[2025-06-03 15:36] VITALS: BP 120/80; PULSE 82; O2SAT 97; BMI 47.6
--- NOTE | 2025-06-03 15:36 | HO.NEPHOV ---
Vital Signs 06/03/25 15:36 Height 5 ft 10 in Weight 332 lb BMI 47.6 BP 120/80 Blood Pressure Location Rt brachial Position Sitting Pulse 82 Pulse Source Pulse Oximeter Pulse Oximetry (%) 97 Oxygen Delivery Method Room Air Intake Visit Reasons: 3-4wk f/u w/labs-Conf Healthcare Associate Required: No Accompanied by: Spouse Allergies bee pollen (BEE STINGS) Allergy (Severe, Verified 06/03/25 15:39) SWELLING lobster Allergy (Severe, Verified 06/03/25 15:39) Swelling Medication List - Last Reconciled 06/03/25 by Vimal Her MD aspirin (Adult Low Dose Aspirin) 81 mg PO DAILY ecklsnqgan-arammruarywhx-ssmo 50-325-40 mg 1 tab PO QID PRN cholecalciferol (vitamin D3) 25 mcg PO DAILY diltiazem HCl ER (Tiadylt ER) 300 mg PO DAILY fexofenadine (Allergy Relief (fexofenadine)) 180 mg PO DAILY 90 days furosemide 40 mg PO BID gemfibrozil 600 mg PO BID 90 days ibuprofen 800 mg PO TID PRN levothyroxine 150 mcg PO QAM lisinopril 40 mg PO DAILY mometasone 50 mcg/actuation 2 sprays intranasal BID omega 2-tad-hyu-fish oil 100-160-1,000 mg (Fish Oil) 1 cap PO DAILY propranolol ER 60 mg PO DAILY rosuvastatin (Crestor) 20 mg PO BEDTIME topiramate 100 mg PO BID HPI Comments Details: The patient is a 65-year-old male presenting with decreased kidney function. He has a history of nephrolithiasis, with past kidney stones but no recent issues or interventions. Chronic kidney disease is noted, with a decline in kidney function from 47% in June to 42% in March, showing a gradual decrease over three years. Lymphedema has been present few years, causing leg swelling managed with compression therapy. He is on Lasix 40 mg TID with minimal improvement The patient is monitored for stage I prostate cancer, with a PSA level of 5.1, lower than the previous year. Essential hypertension is managed with lisinopril, Cardizem , with stable blood pressure readings of 120/70 mmHg and 120/60 mmHg. The patient also reports hyperlipidemia, migraine managed with topiramate, cubital tunnel syndrome, and a hiatal hernia contributing to breathing difficulties when supine. h/o MAXI and Obesity. Does not use CPAP 06/03/25 The patient is a 65-year-old male presenting for follow-up regarding chronic kidney disease management. Furosemide dosage was reduced, improving kidney function from 42 mL/min to 47 mL/min. Blood pressure remains stable at 120/80 mmHg, with unchanged leg swelling. Frequent migraines are managed with butalbital, caffeine, and topiramate. Previous medications caused nausea; triptans have not been tried. Medications: - Furosemide 40 mg twice daily for chronic kidney disease - Butalbital, caffeine, and topiramate for migraine management Diagnostic Results: - Kidney function improved from 42 mL/min to 47 mL/min [facility] Medical History (Updated 04/15/25 @ 14:52 by Helene Berry CNP) Lesion of ulnar nerve, right upper limb Nephrolithiasis Morbid obesity with body mass index (BMI) of 45.0 to 49.9 in adult Sliding hiatal hernia Elevated liver enzymes Prediabetes History of prostate cancer Chronic anemia CKD (chronic kidney disease) Establishing care with new doctor, encounter for Vitamin D deficiency Mild hypercholesterolemia Heartburn Lymphedema Prostate cancer Positive colorectal cancer screening using Cologuard test (07/27/24) Allergic rhinitis Orthopnea Shortness of breath Restrictive lung disease MAXI (obstructive sleep apnea) Morbid obesity Migraine Hypothyroid High cholesterol Hypertension Surgical History Hx of right inguinal hernia repair History of esophagogastroduodenoscopy (EGD) H/O colonoscopy (12/10/24) Family History Father Stroke Mother No problems noted. Social History Housing: House Are you a primary home health care respiratory therapist to a significant other at home: No Do you presently have visiting nurse or other home services: No Alcohol intake: current Alcohol intake frequency: does not drink Patient Tobacco Use Status: Never used Tobacco Second Hand Smoke Exposure: No service: No Current occupational status: retired Cognitive needs: No Hearing needs: No Vision needs: Yes (rx glasses) Physical Exam Vital Signs: Last Vital Signs Pulse 82 06/03/25 15:36 BP 120/80 09/08/25 15:36 Pulse Ox 97 06/03/25 15:36 Oxygen Delivery Method Room Air 06/03/25 15:36 BMI result Body Mass Index 47.6 Comfortable . Obese Neck supple no JVD. Lungs entry equal no rales. Heart S1-S2 heard no gallop or rub. Abdomen soft nontender. Neuro alert awake oriented. No asterixis. Extremities edema + non pitting. Results Reviewed Nephrology Results: Hgb, (14.0-18.0) 12.9 g/dl L 04/09/25 WBC, (4.8-10.8) 5.6 X10*3/uL 04/09/25 Plt Count, (160-400) 201 X10*3/uL 04/09/25 Sodium, (135-145) 141 mmol/L 05/13/25 Potassium, (3.3-5.1) 4.1 mmol/L 05/13/25 Chloride, (96-108) 108 mmol/L 05/13/25 Carbon Dioxide, (22-29) 25 mmol/L 05/13/25 BUN, (9-16) 23 mg/dL H 05/13/25 Creatinine, (0.5-1.4) 1.49 mg/dL H 05/13/25 Calcium, (8.4-10.2) 9.1 mg/dL 05/13/25 Urine Protein, (Neg-Trace) Trace mg/dL 05/13/25 Urine Creatinine 149.41 mg/dL 05/13/25 Assessment & Plan Assessment & Plan (1) Hypertension: Code(s): I10 - Essential (primary) hypertension Category: Medical (2) CKD (chronic kidney disease): Code(s): N18.9 - Chronic kidney disease, unspecified Category: Medical Plan 65-year-old man with chronic kidney disease in the setting of longstanding hypertension obesity and lymphedema. There could be a component of acute kidney injury from hypoperfusion from the combination of NILAM inhibitors on high dose of diuretics. No evidence of obstruction based on recent ultrasonogram. No evidence of ATN/AGN Recommendations Low-salt diet Decrease Lasix from 40 mg p.o. b.i.d. to 40 mg QD ( Used ot be on 40 mg t.i.d). Keep all other medications the same for now. Continue with compression stockings , leg elevation whenever possible. Goal would be to gradually lower the diuretic and lisinopril as clinically tolerated while maintain blood pressure less than 130/80. Continue to avoid nephrotoxic agents including NSAIDs. Orders: Orders Basic Metabolic Panel 4 Weeks Vimal Her MD I10 - Essential (primary) hypertension, N18.9 - Chronic kidney disease, unspecified Medications: Changed From furosemide 40 mg PO TID 90 days 270 tabs 1RF To furosemide 40 mg PO BID Yocasta Chun PA-C Coding Level of Care Code Est Pt Level 4 (83521) Diagnoses Hypertension I10 CKD (chronic kidney disease) N18.9
== END 2025-06-03 15:56 | disposition home or self-care (01) ==
LOC: HO.HKA 15:31
PROVIDERS: PCP Internal Medicine; Visit Provider Internal Medicine Hypertension Specialist
DX: I12.9 Hypertensive chronic kidney disease with stage 1 through stage 4 chronic kidney disease, or unspecified chronic kidney disease (principal); N18.9 Chronic kidney disease, unspecified
CPT/HCPCS: 99214

== ENCOUNTER → 2025-06-03 15:30 | Outpatient (BNVA) | payer OTHER, SELFPAY | PROVIDERS: PCP Internal Medicine; Visit Provider Internal Medicine Hypertension Specialist | DX: I12.9 Hypertensive chronic kidney disease with stage 1 through stage 4 chronic kidney disease, or unspecified chronic kidney disease (principal); N18.32 Chronic kidney disease, stage 3b; Z79.82 Long term (current) use of aspirin; E66.9 Obesity, unspecified; Z68.42 Body mass index [BMI] 45.0-49.9, adult; Z85.46 Personal history of malignant neoplasm of prostate; I89.0 Lymphedema, not elsewhere classified; Z13.89 Encounter for screening for other disorder ==

== ENCOUNTER 2025-06-17 13:30 | Outpatient (AMB) | payer OTHER, SELFPAY ==
--- NOTE | 2025-06-17 13:53 | MHC.OFFVIS ---
Intake Visit Reasons: 2 MO FU Accompanied by: Spouse Allergies bee pollen (BEE STINGS) Allergy (Severe, Verified 06/17/25 13:55) SWELLING lobster Allergy (Severe, Verified 06/17/25 13:55) Swelling Medication List - Last Reconciled 06/17/25 by Helene Berry CNP aspirin (Adult Low Dose Aspirin) 81 mg PO DAILY vancbshnqm-ylxzltjvmvgng-iwof 50-325-40 mg 1 tab PO QID PRN cholecalciferol (vitamin D3) 25 mcg PO DAILY diltiazem HCl ER (Tiadylt ER) 300 mg PO DAILY fexofenadine (Allergy Relief (fexofenadine)) 180 mg PO DAILY 90 days furosemide 40 mg PO BID gemfibrozil 600 mg PO BID 90 days ibuprofen 800 mg PO TID PRN levothyroxine 150 mcg PO QAM lisinopril 40 mg PO DAILY mometasone 50 mcg/actuation 2 sprays intranasal BID omega 8-tzp-ldi-fish oil 100-160-1,000 mg (Fish Oil) 1 cap PO DAILY propranolol ER 60 mg PO DAILY rosuvastatin (Crestor) 20 mg PO BEDTIME topiramate 100 mg PO BID 30 days HPI Comments Details: 65-year-old man with diabetes, obesity, HTN, hypothyroidism, and migraine headache. He had some trouble getting topiramate refilled and was without medication for about 1.5 weeks. He restarted medication about 2 days ago. He had more headaches, almost nightly, without medication. With the topiramate, headaches were happening about 4x/week. He often woke between 2-4am to use bathroom and had headache at that time with photophobia, sonophonia, nausea and sometimes vomiting. He was given prednisone taper in 03/2025 for elevated ESR and CRP-hs, no change in headaches. Headaches could be frontal or to back of head, intense pressure -type pain, and could last up to few hours. Butalbital as needed helped. He was infrequently using Tylenol as needed. He and his were hesistent to start Ajovy at that time because they did not want to start two new medications together. [facility] Medical History (Updated 04/15/25 @ 14:52 by Helene Berry CNP) Lesion of ulnar nerve, right upper limb Nephrolithiasis Morbid obesity with body mass index (BMI) of 45.0 to 49.9 in adult Sliding hiatal hernia Elevated liver enzymes Prediabetes History of prostate cancer Chronic anemia CKD (chronic kidney disease) Establishing care with new doctor, encounter for Vitamin D deficiency Mild hypercholesterolemia Heartburn Lymphedema Prostate cancer Positive colorectal cancer screening using Cologuard test (07/27/24) Allergic rhinitis Orthopnea Shortness of breath Restrictive lung disease MAXI (obstructive sleep apnea) Morbid obesity Migraine Hypothyroid High cholesterol Hypertension Surgical History Hx of right inguinal hernia repair History of esophagogastroduodenoscopy (EGD) H/O colonoscopy (12/10/24) Family History Father Stroke Mother No problems noted. Social History Housing: House Are you a primary primary health care nurse to a significant other at home: No Do you presently have visiting nurse or other home services: No Alcohol intake: current Alcohol intake frequency: does not drink Patient Tobacco Use Status: Never used Tobacco Second Hand Smoke Exposure: No service: No Current occupational status: retired Cognitive needs: No Hearing needs: No Vision needs: Yes (rx glasses) Review of Systems Const Denies chills, Denies daytime sleepiness, Reports difficulty sleeping, Denies fatigue, Denies fever(s), Denies frequent falls, Reports headache(s), Denies increased appetite, Denies poor appetite, Denies snoring, Denies weakness, Denies weight gain and Denies weight loss Eyes Denies loss of vision ENT Denies vertigo, Denies dizziness and Reports headache(s) Card Denies chest pain at rest, Denies chest pain with activity, Denies syncope, Denies leg edema and Denies palpitations Resp Denies snoring GI Denies constipation, Denies heartburn, Denies diarrhea and Denies nausea Denies urinary frequency, Denies urinary incontinence and Denies urinary urgency Musc Denies abnormal gait, Denies numbness and Denies tingling Skin/Breast Denies dry skin and Denies rash Neuro Denies abnormal gait, Denies vertigo, Denies dizziness, Denies syncope, Denies frequent falls, Reports headache(s), Denies lack of coordination, Denies loss of vision, Denies memory loss, Denies numbness, Denies restless legs, Denies seizure-like activity, Denies tingling, Denies paresthesias, Denies tremor(s) and Denies weakness Psych Denies anxiety, Denies depression, Denies auditory hallucinations, Denies memory loss, Denies visual hallucinations, Denies suicidal ideation and Reports other (stress) Endo Denies fatigue and Denies palpitations Physical Exam Const Other: General Appearance:? normal, in no acute distress. Skin:? no rashes, no significant birthmarks. Heart:? S1, S2 normal, no murmurs. Lungs:? clear anteriorly and posteriorly. Extremities:? no edema. Psych:? alert, oriented, cognitive function intact, cooperative with exam. Neuro Other: Mental Status:?Normal attention, orientation, memory and affect.? Cranial Nerves:?Pupils are equal, round and reactive to light. External occular muscles are intact. Visual tena are full. Face is symmetrical. Facial sensations are normal. Tongue is midline. Palate elevates symmetrically. Shoulder shrugging is normal. Hearing to bedside conversation is normal. Sensory Exam:?....? Coordination:?No ataxia,?no titubation.? Gait Exam: Within normal limits. Cerebellar Signs:?Rzbqgn-fb-sbcw is okay. Extrapyramidal System:?No tremor, rigidity with normal facial expressions.? Pronator Drift:?Not present.? Involuntary Movements:?No tremors seen.? Speech:?Normal.? Results Reviewed Results Reviewed: Laboratory Tests 04/09/25 04/15/25 05/13/25 11:23 15:38 10:50 WBC 5.6 RBC 4.46 L Hgb 12.9 L Hct 40.3 L MCV 90.4 MCH 28.9 MCHC 32.0 RDW 14.6 Plt Count 201 MPV 9.7 Immature Gran % (Auto) 0.5 H Neut % (Auto) 55.5 Lymph % (Auto) 29.5 [place] % (Auto) 8.8 Eos % (Auto) 4.1 H Baso % (Auto) 1.6 Lymph # (Auto) 1.7 [place] # (Auto) 0.5 Eos # (Auto) 0.2 Baso # (Auto) 0.1 Abs Immat Gran (auto) 0.03 Absolute Neuts (auto) 3.1 Absolute Nucleated RBC 0.000 Nucleated RBC % (auto) 0.0 ESR 34 H 37 H Sodium 141 Potassium 4.1 Chloride 108 Carbon Dioxide 25 Anion Gap 12 BUN 23 H Creatinine 1.49 H Estimated GFR 47 Random Glucose 135 H Calcium 9.1 Total Bilirubin 0.3 AST 22 ALT 21 Alkaline Phosphatase 133 H C-React Prot High Sens 11.9 H Total Protein 7.4 Albumin 4.2 TSH 4.44 H Free T4 0.88 Assessment & Plan Assessment & Plan (1) Migraine: Code(s): G43.909 - Migraine, unspecified, not intractable, without status migrainosus Category: Medical Qualifiers: Migraine type: unspecified Status migrainosus presence: without status migrainosus Intractability: not intractable Qualified Code(s): G43.909 - Migraine, unspecified, not intractable, without status migrainosus Plan: Continue topiramate 100mg 1 tablet twice a day. Continue skrlowhdea-HPRO-nfab 50-325-40mg 1-2 tablets as needed for headache once a day #10 for 30 days. Repeat ESR and CRP. MRI brain ordered. Plan Meds tried: topiramate, did not try amitriptyline due to side effects, propranolol, venlafaxine Orders: Orders MR head/brain wo con Today G43.909 - Migraine, unspecified, not intractable, without status migrainosus Erythrocyte Sedimentation Rate Today G43.909 - Migraine, unspecified, not intractable, without status migrainosus C Reactive Protein Today G43.909 - Migraine, unspecified, not intractable, without status migrainosus Coding Level of Care Code Est Pt Level 4 (47472) Diagnoses Migraine without status migrainosus, not intractable, unspecified migraine type G43.909 Migraine type: unspecified Status migrainosus presence: without status migrainosus Intractability: not intractable
== END 2025-06-17 14:20 | disposition home or self-care (01) ==
LOC: HO.HSM 13:31
PROVIDERS: PCP Internal Medicine; Visit Provider Registered Nurse
DX: G43.909 Migraine, unspecified, not intractable, without status migrainosus (principal)
CPT/HCPCS: 99214

== ENCOUNTER 2025-06-17 16:15 | Outpatient (REF) | payer OTHER, SELFPAY ==
[2025-06-17 16:35] LABS: Appearance Urine Clear; Glucose Urine UA Negative (Negative); PH 6.0 (5.0-9.0); Specific Gravity - Urine 1.010 (1.005-1.025); UMIC TRIGGER UA YES
== END 2025-06-17 16:16 | disposition home or self-care (01) ==
LOC: HO.LNP 16:15
PROVIDERS: Visit Provider Internal Medicine Hypertension Specialist
DX: I12.9 Hypertensive chronic kidney disease with stage 1 through stage 4 chronic kidney disease, or unspecified chronic kidney disease (principal); N18.9 Chronic kidney disease, unspecified
CPT/HCPCS: 81001

== ENCOUNTER 2025-07-01 14:31 | Outpatient (REF) | payer OTHER, SELFPAY ==
[2025-07-01 16:02] LABS: Anion Gap 12 (12-20); Blood Urea Nitrogen 26 mg/dL (9-16); Calcium 9.4 mg/dL (8.4-10.2); Carbon Dioxide 25 mmol/L (22-29); Chloride 107 mmol/L (96-108); Estimated Glomerular Filt Rate 49; Potassium 3.8 mmol/L (3.3-5.1); Sodium 140 mmol/L (135-145)
== END 2025-07-01 14:32 | disposition home or self-care (01) ==
LOC: HO.LAB 14:31
PROVIDERS: Absent Provider Registered Nurse; PCP Internal Medicine; Visit Provider Internal Medicine Hypertension Specialist
DX: I12.9 Hypertensive chronic kidney disease with stage 1 through stage 4 chronic kidney disease, or unspecified chronic kidney disease (principal); N18.9 Chronic kidney disease, unspecified
CPT/HCPCS: 36415; 80048

== ENCOUNTER 2025-07-15 15:15 | Outpatient (AMB) | payer OTHER, SELFPAY ==
[2025-07-15 15:28] VITALS: BP 138/82; PULSE 64; O2SAT 96; BMI 46.9
--- NOTE | 2025-07-15 15:28 | HO.NEPHOV_ITS ---
Vital Signs 07/15/25 15:28 Height 5 ft 10 in Weight 327 lb BMI 46.9 BP 138/82 Blood Pressure Location Rt brachial Position Sitting Pulse 64 Pulse Source Pulse Oximeter Pulse Oximetry (%) 96 Oxygen Delivery Method Room Air Intake Visit Reasons: 6wk f/u w/labs-[employer] Cate[employer] Required: No Accompanied by: Spouse Allergies bee pollen (BEE STINGS) Allergy (Severe, Verified 07/15/25 15:30) SWELLING lobster Allergy (Severe, Verified 07/15/25 15:30) Swelling Medication List - Last Reconciled 07/15/25 by Vimal Her MD aspirin (Adult Low Dose Aspirin) 81 mg PO DAILY qdribdzlng-foktivoibynwh-txvp 50-325-40 mg 1 tab PO QID PRN cholecalciferol (vitamin D3) 25 mcg PO DAILY diltiazem HCl ER (Tiadylt ER) 300 mg PO DAILY fexofenadine (Allergy Relief (fexofenadine)) 180 mg PO DAILY 90 days furosemide 40 mg PO DAILY gemfibrozil 600 mg PO BID 90 days ibuprofen 800 mg PO TID PRN levothyroxine 150 mcg PO QAM lisinopril 40 mg PO DAILY mometasone 50 mcg/actuation 2 sprays intranasal BID omega 1-kko-qqt-fish oil 100-160-1,000 mg (Fish Oil) 1 cap PO DAILY propranolol ER 60 mg PO DAILY rosuvastatin (Crestor) 20 mg PO BEDTIME topiramate 100 mg PO BID 30 days HPI Comments Details: The patient is a 65-year-old male presenting with decreased kidney function. He has a history of nephrolithiasis, with past kidney stones but no recent issues or interventions. Chronic kidney disease is noted, with a decline in kidney function from 47% in June to 42% in March, showing a gradual decrease over three years. Lymphedema has been present few years, causing leg swelling managed with compression therapy. He is on Lasix 40 mg TID with minimal improvement The patient is monitored for stage I prostate cancer, with a PSA level of 5.1, lower than the previous year. Essential hypertension is managed with lisinopril, Cardizem , with stable blood pressure readings of 120/70 mmHg and 120/60 mmHg. The patient also reports hyperlipidemia, migraine managed with topiramate, cubital tunnel syndrome, and a hiatal hernia contributing to breathing diffi culties when supine. h/o MAXI and Obesity. Does not use CPAP 06/03/25 The patient is a 65-year-old male presenting for follow-up regarding chronic kidney disease management. Furosemide dosage was reduced, improving kidney function from 42 mL/min to 47 mL/min. Blood pressure remains stable at 120/80 mmHg, with unchanged leg swelling. Frequent migraines are managed with butalbital, caffeine, and topiramate. Previous medications caused nausea; triptans have not been tried. Medications: - Furosemide 40 mg twice daily for chronic kidney disease - Butalbital, caffeine, and topiramate for migraine management Diagnostic Results: - Kidney function improved from 42 mL/min to 47 mL/min 07/15/25 - The patient is a 65-year-old male presenting with chronic kidney disease and hypertension. - Kidney function improved from 42% to 49%. - Blood pressure controlled at 138/82 mmHg. - Scheduled for brain MRI for migraine evaluation. [facility] Medical History (Updated 04/15/25 @ 14:52 by Helene Berry CNP) Lesion of ulnar nerve, right upper limb Nephrolithiasis Morbid obesity with body mass index (BMI) of 45.0 to 49.9 in adult Sliding hiatal hernia Elevated liver enzymes Prediabetes History of prostate cancer Chronic anemia CKD (chronic kidney disease) Establishing care with new doctor, encounter for Vitamin D deficiency Mild hypercholesterolemia Heartburn Lymphedema Prostate cancer Positive colorectal cancer screening using Cologuard test (07/27/24) Allergic rhinitis Orthopnea Shortness of breath Restrictive lung disease MAXI (obstructive sleep apnea) Morbid obesity Migraine Hypothyroid High cholesterol Hypertension Surgical History Hx of right inguinal hernia repair History of esophagogastroduodenoscopy (EGD) H/O colonoscopy (12/10/24) Family History Father Stroke Mother No problems noted. Social History Housing: House Are you a primary child care centre director to a significant other at home: No Do you presently have visiting nurse or other home services: No Alcohol intake: current Alcohol intake frequency: does not drink Patient Tobacco Use Status: Never used Tobacco Second Hand Smoke Exposure: No service: No Current occupational status: retired Cognitive needs: No Hearing needs: No Vision needs: Yes (rx glasses) Physical Exam Vital Signs: Last Vital Signs Pulse 64 07/15/25 15:28 BP 138/82 07/15/25 15:28 Pulse Ox 96 07/15/25 15:28 Oxygen Delivery Method Room Air 07/15/25 15:28 BMI result Body Mass Index 46.9 Comfortable . Obese Neck supple no JVD. Lungs entry equal no rales. Heart S1-S2 heard no gallop or rub. Abdomen soft nontender. Neuro alert awake oriented. No asterixis. Extremities edema + non pitting. Results Reviewed Nephrology Results: Hgb, (14.0-18.0) 12.9 g/dl L 04/09/25 WBC, (4.8-10.8) 5.6 X10*3/uL 04/09/25 Plt Count, (160-400) 201 X10*3/uL 04/09/25 Sodium, (135-145) 140 mmol/L 07/01/25 Potassium, (3.3-5.1) 3.8 mmol/L 07/01/25 Chloride, (96-108) 107 mmol/L 07/01/25 Carbon Dioxide, (22-29) 25 mmol/L 07/01/25 BUN, (9-16) 26 mg/dL H 07/01/25 Creatinine, (0.5-1.4) 1.45 mg/dL H 07/01/25 Calcium, (8.4-10.2) 9.4 mg/dL 07/01/25 Urine Protein, (Neg-Trace) Negative mg/dL 06/17/25 Urine Creatinine 149.41 mg/dL 05/13/25 Assessment & Plan Assessment & Plan (1) Hypertension: Code(s): I10 - Essential (primary) hypertension Category: Medical (2) CKD (chronic kidney disease): Code(s): N18.9 - Chronic kidney disease, unspecified Category: Medical Plan 65-year-old man with chronic kidney disease in the setting of longstanding hypertension obesity and lymphedema. There could be a component of acute kidney injury from hypoperfusion from the combination of NILAM inhibitors on high dose of diuretics. No evidence of obstruction based on recent ultrasonogram. No evidence of ATN/AGN Recommendations Low-salt diet Decrease Lasix from 40 mg p.o. b.i.d. to 40 mg QD ( Used ot be on 40 mg t.i.d). Keep all other medications the same for now. Continue with compression stockings , leg elevation whenever possible. Goal would be to gradually lower the diuretic and lisinopril as clinically tolerated while maintain blood pressure less than 130/80. Continue to avoid nephrotoxic agents including NSAIDs. Orders: Orders Total Protein Urine Random 3 Months I10 - Essential (primary) hypertension, N18.9 - Chronic kidney disease, unspecified Creatinine Urine 3 Months I10 - Essential (primary) hypertension, N18.9 - Chronic kidney disease, unspecified Basic Metabolic Panel 3 Months I10 - Essential (primary) hypertension, N18.9 - Chronic kidney disease, unspecified Complete Blood Count Auto Diff 3 Months I10 - Essential (primary) hypertension, N18.9 - Chronic kidney disease, unspecified Parathyroid Hormone Intact 3 Months I10 - Essential (primary) hypertension, N18.9 - Chronic kidney disease, unspecified Coding Level of Care Code Est Pt Level 4 (80004) Diagnoses Hypertension I10 CKD (chronic kidney disease) N18.9
== END 2025-07-15 15:43 | disposition home or self-care (01) ==
LOC: HO.HKA 15:15
PROVIDERS: PCP Internal Medicine; Visit Provider Internal Medicine Hypertension Specialist
DX: I12.9 Hypertensive chronic kidney disease with stage 1 through stage 4 chronic kidney disease, or unspecified chronic kidney disease (principal); N18.9 Chronic kidney disease, unspecified
CPT/HCPCS: 99214

== ENCOUNTER 2025-07-15 19:28 | Outpatient (REF) | payer OTHER, SELFPAY ==
--- NOTE | ~2025-07-15 | MR_ITS ---
EXAMINATION: MR BRAIN WITHOUT IV CONTRAST HISTORY: G43.909 - Migraine, unspecified, not intractable, without status... TECHNIQUE: Sagittal T1 weighted MR images of the brain were obtained. The patient could not tolerate additional imaging, and the study was terminated. COMPARISON: There are no prior studies available for comparison. FINDINGS: The pituitary is normal in size. There is no shift of the midline structures. The examination is otherwise nondiagnostic. MR/MR head/brain wo con IMPRESSION: Nondiagnostic examination. Electronically signed by: Siddhartha Lowe MD 07/16/2025 06:58 AM EDT
== END 2025-07-15 19:29 | disposition home or self-care (01) ==
LOC: HO.MRI 19:28
PROVIDERS: PCP Internal Medicine; Visit Provider Registered Nurse
DX: G43.909 Migraine, unspecified, not intractable, without status migrainosus (principal)
CPT/HCPCS: 70551

== ENCOUNTER → 2025-07-15 19:34 | Outpatient (BNV) | payer OTHER, SELFPAY | PROVIDERS: PCP Internal Medicine; Visit Provider Radiology Diagnostic Radiology | DX: G43.909 Migraine, unspecified, not intractable, without status migrainosus (principal) | CPT/HCPCS: 70551 ==

== ENCOUNTER 2025-08-28 09:21 | Outpatient (REF) | payer OTHER, SELFPAY ==
[2025-08-28 11:16] LABS: Erythrocyte Sedimentation Rate 21 MM/HR (0-15)
== END 2025-08-28 09:22 | disposition home or self-care (01) ==
LOC: HO.LAB 09:21
PROVIDERS: PCP Internal Medicine; Visit Provider Registered Nurse
DX: G43.909 Migraine, unspecified, not intractable, without status migrainosus (principal); Z79.899 Other long term (current) drug therapy
CPT/HCPCS: 36415; 85652; 86140

== ENCOUNTER 2025-08-28 09:21 | Outpatient (AMB) | payer OTHER, SELFPAY ==
--- NOTE | 2025-08-28 09:26 | MHC.OFFVIS ---
Intake Visit Reasons: 2 month f/u migranes Accompanied by: Spouse Allergies bee pollen (BEE STINGS) Allergy (Severe, Verified 08/28/25 09:36) SWELLING lobster Allergy (Severe, Verified 08/28/25 09:36) Swelling Medication List - Last Reconciled 08/28/25 by Helene Berry CNP aspirin (Adult Low Dose Aspirin) 81 mg PO DAILY pkbalgtafy-ckqwrdybiwzbm-nzsa 50-325-40 mg 1 tab PO QID PRN cholecalciferol (vitamin D3) 25 mcg PO DAILY diltiazem HCl ER (Tiadylt ER) 300 mg PO DAILY fexofenadine (Allergy Relief (fexofenadine)) 180 mg PO DAILY 90 days furosemide 40 mg PO DAILY gemfibrozil 600 mg PO BID ibuprofen 800 mg PO TID PRN levothyroxine 150 mcg PO QAM lisinopril 40 mg PO DAILY mometasone 50 mcg/actuation 2 sprays intranasal BID omega 7-utk-ley-fish oil 100-160-1,000 mg (Fish Oil) 1 cap PO DAILY propranolol ER 60 mg PO DAILY rosuvastatin (Crestor) 20 mg PO BEDTIME topiramate 100 mg PO BID 30 days HPI Comments Details: 65-year-old man with diabetes, obesity, HTN, hypothyroidism, and migraine headache. He had MRI, but exam was limited as he was unable to tolerate laying flat. He was taking topiramate twice a day. Headaches were about the same, happening about 4-5x/week, and often waking with headache between 12am-4am. Headaches could be frontal or to back of head, intense pressure -type pain, with photophobia, sonophobia, nausea, sometimes vomiting, and could last up to few hours. Butalbital as needed helped. Sleep was okay. He has not been using CPAP for about a year, and did not notice increase in headaches after CPAP was stopped. [facility] Medical History (Updated 08/28/25 @ 10:15 by Helene Berry CNP) Lesion of ulnar nerve, right upper limb Nephrolithiasis Morbid obesity with body mass index (BMI) of 45.0 to 49.9 in adult Sliding hiatal hernia Elevated liver enzymes Prediabetes History of prostate cancer Chronic anemia CKD (chronic kidney disease) Establishing care with new doctor, encounter for Vitamin D deficiency Mild hypercholesterolemia Heartburn Lymphedema Prostate cancer Positive colorectal cancer screening using Cologuard test (07/27/24) Allergic rhinitis Orthopnea Shortness of breath Restrictive lung disease MAXI (obstructive sleep apnea) Morbid obesity Migraine Hypothyroid High cholesterol Hypertension Surgical History Hx of right inguinal hernia repair History of esophagogastroduodenoscopy (EGD) H/O colonoscopy (12/10/24) Family History Father Stroke Mother No problems noted. Social History Housing: House Are you a primary disabilities caregiver to a significant other at home: No Do you presently have visiting nurse or other home services: No Alcohol intake: current Alcohol intake frequency: does not drink Patient Tobacco Use Status: Never used Tobacco Second Hand Smoke Exposure: No service: No Current occupational status: retired Cognitive needs: No Hearing needs: No Vision needs: Yes (rx glasses) Review of Systems Const Denies chills, Denies daytime sleepiness, Reports difficulty sleeping, Denies fatigue, Denies fever(s), Denies frequent falls, Reports headache(s), Denies increased appetite, Denies poor appetite, Denies snoring, Denies weakness, Denies weight gain and Denies weight loss Eyes Denies loss of vision ENT Denies vertigo, Denies dizziness and Reports headache(s) Card Denies chest pain at rest, Denies chest pain with activity, Denies syncope, Denies leg edema and Denies palpitations Resp Denies snoring GI Denies constipation, Denies heartburn, Denies diarrhea and Denies nausea Denies urinary frequency, Denies urinary incontinence and Denies urinary urgency Musc Denies abnormal gait, Denies numbness and Denies tingling Skin/Breast Denies dry skin and Denies rash Neuro Denies abnormal gait, Denies vertigo, Denies dizziness, Denies syncope, Denies frequent falls, Reports headache(s), Denies lack of coordination, Denies loss of vision, Denies memory loss, Denies numbness, Denies restless legs, Denies seizure-like activity, Denies tingling, Denies paresthesias, Denies tremor(s) and Denies weakness Psych Denies anxiety, Denies depression, Denies auditory hallucinations, Denies memory loss, Denies visual hallucinations, Denies suicidal ideation and Reports other (stress) Endo Denies fatigue and Denies palpitations Physical Exam Const Other: General Appearance:? normal, in no acute distress. Skin:? no rashes, no significant birthmarks. Heart:? S1, S2 normal, no murmurs. Lungs:? clear anteriorly and posteriorly. Extremities:? no edema. Psych:? alert, oriented, cognitive function intact, cooperative with exam. Neuro Other: Mental Status:?Normal attention, orientation, memory and affect.? Cranial Nerves:?Pupils are equal, round and reactive to light. External occular muscles are intact. Visual tena are full. Face is symmetrical. Facial sensations are normal. Tongue is midline. Palate elevates symmetrically. Shoulder shrugging is normal. Hearing to bedside conversation is normal. Sensory Exam:?....? Coordination:?No ataxia,?no titubation.? Gait Exam: Within normal limits. Cerebellar Signs:?Aesvxk-jp-qjfr is okay. Extrapyramidal System:?No tremor, rigidity with normal facial expressions.? Pronator Drift:?Not present.? Involuntary Movements:?No tremors seen.? Speech:?Normal.? Results Reviewed Results Reviewed: Laboratory Tests 04/15/25 05/13/25 07/01/25 15:38 10:50 14:43 ESR 37 H Sodium 140 Potassium 3.8 Chloride 107 Carbon Dioxide 25 Anion Gap 12 BUN 26 H Creatinine 1.45 H Estimated GFR 49 Random Glucose 124 H Calcium 9.4 Total Bilirubin 0.3 AST 22 ALT 21 Alkaline Phosphatase 133 H C-React Prot High Sens 11.9 H Total Protein 7.4 Albumin [address] [address] Magnetic Resonance Report Signed Patient: Guille Villalta MR#: [id number] : 1960 Acct:[id number] Age/Sex: 65 / M ADM Date: 07/15/25 Loc: HO.MRI Attending Dr: Helene Berry CUSTOM GARMENT DESIGNER Ordering Physician: Helene Berry CNP Date of Service: 07/15/25 Procedure(s): MR head/brain wo con Accession Number(s): [id number] cc: Helene Berry CUSTOM GARMENT DESIGNER; Yosi Rogers MD~ Reason for Exam: G43.909 - Migraine, unspecified, not intractable, without status migrain... EXAMINATION: MR BRAIN WITHOUT IV CONTRAST HISTORY: G43.909 - Migraine, unspecified, not intractable, without status... TECHNIQUE: Sagittal T1 weighted MR images of the brain were obtained. The patient could not tolerate additional imaging, and the study was terminated. COMPARISON: There are no prior studies available for comparison. FINDINGS: The pituitary is normal in size. There is no shift of the midline structures. The examination is otherwise nondiagnostic. MR/MR head/brain wo con IMPRESSION: Nondiagnostic examination. Electronically signed by: Siddhartha Lowe MD 07/16/2025 06:58 AM EDT Dictated By: Siddhartha Lowe MD Signed By: <Electronically signed by Siddhartha Lowe MD in OV> 07/16/25 0658 Assessment & Plan Assessment & Plan (1) Migraine: Code(s): G43.909 - Migraine, unspecified, not intractable, without status migrainosus Category: Medical Qualifiers: Migraine type: unspecified Status migrainosus presence: without status migrainosus Intractability: not intractable Qualified Code(s): G43.909 - Migraine, unspecified, not intractable, without status migrainosus Plan: Lab results reviewed, CKD following with nephrology. He did not have repeat ESR and CRP done, and these were requested again. MRI results reviewed, limited exam (as he was unable to tolerate) without significant findings. Continue topiramate 100mg 1 tablet twice a day. Continue yndfmithhk-ALWI-rwzz 50-325-40mg - currently being prescribed by PCP. Given timing of headaches, possible these may be hypnic headaches, and he was recommended to try small amount of caffiene in the evening to see if that would help. Plan Meds tried: topiramate, did not try amitriptyline due to side effects, propranolol, venlafaxine Orders: Orders Erythrocyte Sedimentation Rate Today G43.909 - Migraine, unspecified, not intractable, without status migrainosus C Reactive Protein Today G43.909 - Migraine, unspecified, not intractable, without status migrainosus Coding Level of Care Code Est Pt Level 4 (99968) Diagnoses Migraine without status migrainosus, not intractable, unspecified migraine type G43.909 Migraine type: unspecified Status migrainosus presence: without status migrainosus Intractability: not intractable
== END 2025-08-28 09:46 | disposition home or self-care (01) ==
LOC: HO.HSM 09:22
PROVIDERS: PCP Internal Medicine; Visit Provider Registered Nurse
DX: G43.909 Migraine, unspecified, not intractable, without status migrainosus (principal)
CPT/HCPCS: 99214

== ENCOUNTER 2025-09-05 13:43 | Outpatient (AMB) | payer OTHER, SELFPAY ==
--- NOTE | 2025-09-05 13:53 | MHC.PC.OV ---
Vital Signs 09/05/25 13:54 Height 5 ft 10 in Weight 326 lb BMI 46.8 BP 168/78 H Blood Pressure Location Lt brachial Position Sitting Respiration 16 Pulse 60 Pulse Source Pulse Oximeter Temp 98.1 F Temp Source Temporal Artery Scan Pulse Oximetry (%) 99 Oxygen Delivery Method Room Air Intake Visit Reasons: 6 month follow up Auto Adjudication Specialist Required: No Accompanied by: Self / Same As Patient Allergies bee pollen (BEE STINGS) Allergy (Severe, Verified 09/05/25 14:13) SWELLING lobster Allergy (Severe, Verified 09/05/25 14:13) Swelling Medication List - Last Reconciled 09/05/25 by Yocasta Chun PA-C aspirin (Adult Low Dose Aspirin) 81 mg PO DAILY lrxgbdveiu-uvazkgcsjfcim-xreg 50-325-40 mg 1 tab PO QID PRN cholecalciferol (vitamin D3) 25 mcg PO DAILY diltiazem HCl ER (Tiadylt ER) 300 mg PO DAILY fexofenadine (Allergy Relief (fexofenadine)) 180 mg PO DAILY 90 days furosemide 40 mg PO DAILY gemfibrozil 600 mg PO BID ibuprofen 800 mg PO TID PRN levothyroxine 150 mcg PO QAM lisinopril 40 mg PO DAILY mometasone 50 mcg/actuation 2 sprays intranasal BID omega 0-mxx-gjv-fish oil 100-160-1,000 mg (Fish Oil) 1 cap PO DAILY propranolol ER 60 mg PO DAILY rosuvastatin (Crestor) 20 mg PO BEDTIME topiramate 100 mg PO BID 30 days Tobacco use date assessed: 02/01/25 Dental Screening Dental Screen Date: 02/01/25 HPI HPI Comments History of Present Illness Details History of Present Illness The patient is a 65 year old male presenting with a six-month follow-up and an acute, persistent migraine. For the past two days, he has had a migraine that has not responded to his usual abortive medication, Fioricet. The headache location has varied, currently in the back of the head, and previously in the front. He denies fever, vision changes, dizziness, weakness, or numbness and confirms this is not the worst headache of his life. He confirms no recent head injury, although he mentions a previous fall from a ladder that did not involve hitting his head. He has a history of migraines, hypothyroidism, obesity, hypertension, and diabetes. The headaches occur four to five times per week, often waking him between 12:00 AM and 4:00 AM, and are characterized by intense pressure with photophobia, sonophobia, nausea, and occasional vomiting. A previous MRI of the brain was incomplete as he was unable to tolerate lying flat. He was advised by a specialist to try a small amount of caffeine in the evening for possible hypnic headaches, which has not made a difference. He was also prescribed Ajovy injections but was hesitant to self-administer and concerned about interaction with prednisone. The patient is managed for prediabetes, with a current A1c of 6.1, down from 6.3 at his last visit. He also has stable chronic kidney disease. His TSH in March was 4.44, and a repeat lab was requested but not completed. He has a history of anemia. His current medications include aspirin, diltiazem, Reta, furosemide 40 mg, gemfibrozil 600 mg twice daily, as-needed ibuprofen 800 mg, levothyroxine 150 mcg daily, lisinopril 40 mg, omega-3 fish oil, propranolol, Crestor 20 mg, and topiramate 100 mg twice daily. He does not need any refills today. Social History - Nutrition: He has reduced his ice cream consumption. - CPAP Use: He has not used his CPAP for about a year and did not notice an increase in headaches after stopping. [facility] Medical History (Updated 09/05/25 @ 15:07 by Yocasta Chun PA-C) Preventative health care Lesion of ulnar nerve, right upper limb Nephrolithiasis Morbid obesity with body mass index (BMI) of 45.0 to 49.9 in adult Sliding hiatal hernia Elevated liver enzymes Prediabetes History of prostate cancer Chronic anemia CKD (chronic kidney disease) Establishing care with new doctor, encounter for Vitamin D deficiency Mild hypercholesterolemia Heartburn Lymphedema Prostate cancer Positive colorectal cancer screening using Cologuard test (07/27/24) Allergic rhinitis Orthopnea Shortness of breath Restrictive lung disease MAXI (obstructive sleep apnea) Morbid obesity Migraine Hypothyroid High cholesterol Hypertension Surgical History Hx of right inguinal hernia repair History of esophagogastroduodenoscopy (EGD) H/O colonoscopy (12/10/24) Family History Father Stroke Mother No problems noted. Social History Housing: House Are you a primary respiratory care program director to a significant other at home: No Do you presently have visiting nurse or other home services: No Alcohol intake: current Alcohol intake frequency: does not drink Patient Tobacco Use Status: Never used Tobacco Second Hand Smoke Exposure: No service: No Current occupational status: retired Cognitive needs: No Hearing needs: No Vision needs: Yes (rx glasses) Questionnaire PHQ-9 Over the last 2 weeks, how often have you been bothered by any of the following problems? 1. Little interest or pleasure in doing things: not at all 2. Feeling down, depressed, or hopeless: not at all 3. Trouble falling or staying asleep, or sleeping too much: not at all 4. Feeling tired or having little energy: not at all 5. Poor appetite or overeating: not at all 6. Feeling bad about yourself - or that you are a failure or have let yourself or your family down: not at all 7. Trouble concentrating on things, such as reading the newspaper or watching television: not at all 8. Moving or speaking so slowly that other people could have noticed. Or the opposite - being so fidgety or restless that you have been moving around a lot more than usual: not at all 9. Thoughts that you would be better off or of hurting yourself in some way: not at all Total score: 0 Depression Screening Interpretation: Negative Depression Screening Done: Yes 10033 - PHQ-9 Billing: Yes Source: Developed by Drs. Siddhartha Cisneros, Magda Lisa, Gregor Osman and colleagues, with an educational dexter from [employer]. Thrive Questionnaire Date Thrive assessed: 02/01/25 I am a: Patient What is your living situation today?: I have a steady place to live Within the past 12 months, did the food you bought not last and you didn't have the money to get more?: Never true Within the past 12 months, did you worry whether your food would run out before you got money to buy more?: Never true Do you have trouble paying for medicines?: No Do you have trouble getting transportation to medical appointments?: No Do you have trouble paying your heating and electricity bill?: No Do you have trouble taking care of your child, family member or friend?: No Do you have trouble with day-to-day activities such as bathing, preparing meals, shopping, managing finances, etc.?: No Are you currently unemployed and looking for a job?: No Are you interested in more education?: No Please select the resources that you would like help with: None THRIVE Score: 0 AUDIT C Alcohol Use Questionnaire (AUDIT-C) 1. How often do you have a drink containing alcohol?: Never 3. How often do you have six or more drinks on one occasion?: Never Total Score: 0 Score Reviewed/Action Taken: No RASHAWN-7 AMB Questionnaire RASHAWN-7 Date RASHAWN - 7 assessed: 02/01/25 Feeling nervous, anxious, or on edge: 0 = Not at all Not being able to stop or control worryin = Not at all Worrying too much about different things: 0 = Not at all Trouble relaxin = Not at all Being so restless that it is hard to sit still: 0 = Not at all Becoming easily annoyed or irritable: 0 = Not at all Feeling afraid as if something awful might happen: 0 = Not at all Total RASHAWN-7 score (0-4 normal; 5-9 mild; 10-14 moderate; 15-21 severe): 0 Source: Developed by Drs. Siddhartha Cisneros, Magda Lisa, Gregor Osman and colleagues, with an educational dexter from [employer]. RASHAWN-7 Assessment Billing RASHAWN-7 Assessment Tool: RASHAWN-7 Assessment 38828 Review of Systems Narrative Review of Systems - General: Denies fever, reports pain. - Neurological: Reports a persistent, non-localized headache for the past two days. - He denies changes in vision, dizziness, weakness, or numbness. - History of headaches with photophobia, sonophobia, and occasional vomiting. - Gastrointestinal: Reports recent nausea but is not currently nauseous. Const All systems reviewed & are unremarkable except as noted in HPI and below Physical exam (Primary Care) Vital Signs: Last Vital Signs Temp 98.1 F 09/05/25 13:54 Pulse 60 09/05/25 13:54 Resp 16 12/11/25 13:54 BP 168/78 H 09/05/25 13:54 Pulse Ox 99 09/05/25 13:54 Oxygen Delivery Method Room Air 09/05/25 13:54 Care Plan Goal for BP management: <140/90 patient reports it is elevated today due to headache he will continue diltiazem extended release 300 mg daily, furosemide 40 mg daily, lisinopril 40 mg daily, propranolol extended release 60 mg daily BMI result Body Mass Index 46.8 BMI Assessment/Plan discussion: High BMI High, discussed plan: lifestyle, weight reduction, dietary, physical activity, alcohol moderation and other Tobacco/Smoking Status: Tobacco use Status Tobacco use date assessed 02/01/25 09/05/25 13:55 Patient Tobacco Use Status Never used Tobacco 09/05/25 13:55 PHQ-9: PHQ-9 Score PHQ-9: Total score 0 09/05/25 14:12 Depression Screening Interpretation: Negative Thrive Assessment: Date of Thrive Assessment Date Thrive assessed 02/01/25 09/05/25 13:55 Narrative Physical Exam Appearance: Alert. Oriented X3. No acute distress. Head: Normal external exam. Normocephalic. Atraumatic. Reports migraine headaches with intense pressure, photophobia, sonophobia, and nausea. Headaches are frontal or to the back of the head. Eyes: Pupils are equal, round, and reactive to light. Extraocular movements intact. Conjunctiva and sclera normal. Eyelids normal. Throat: Pharynx normal. Uvula midline. Moist mucous membranes. Neck: Normal inspection. Neck supple. Full range of motion. No meningeal signs. Cardiovascular: Normal heart rate and rhythm. Respiratory: No respiratory distress. Painless inspiration. Back: Full range of motion noted. Skin: Skin warm and dry. Normal skin color. Normal skin turgor. No rashes/lesions/lacerations noted. Extremities: Extremities exhibit normal range of motion. Neuro: Oriented X 3. No motor deficit. No sensory deficit. Reflexes normal. Reports migraine headaches occurring four to five times a week, often waking with headaches between 12:00 to 4:00 AM. Office Meds ketorolac 60 mg/2 mL intramuscular solution Performing Provider: Yocasta Chun PA-C [place] [facility] Administered by: Yocasta Chun PA-C on 09/05/25 15:20 Dose Route Admin Location Dispensed Lot Number Expiration Date [facility] [employer] 60 mg IM 2 mL [id number] 09/25/25 49890-882-42 [employer] Total Dispensed Waste 2 mL 0 % dexamethasone sodium phosphate 10 mg/mL injection solution Performing Provider: Yocasta Chun PA-C [place] [facility] Administered by: Yocasta Chun PA-C on 09/05/25 15:20 Dose Route Admin Location Dispensed Lot Number Expiration Date [facility] [employer] 4 mg IM Left deltoid 1 mL [id number] 09/25/25 21356-916-63 Results AMB Hemoglobin A1c AMB Hemoglobin A1c 6.1 % Last Edit by SHAVON Ewing on 09/05/25 14:13 Coding Level of Care Code Est Pt Level 4 (05959) Add On Problem Visit Only Diagnoses Migraine without status migrainosus, not intractable, unspecified migraine type G43.909 Migraine type: unspecified Status migrainosus presence: without status migrainosus Intractability: not intractable Prediabetes R73.03 CKD (chronic kidney disease) N18.9 Hypothyroid E03.9 Preventative health care Z00.00 Additional Codes RASHAWN-7 Assessment Billing - RASHAWN-7 Assessment Tool: RASHAWN-7 Assessment 03661 ([id number]) PHQ-9 - 95955 - PHQ-9 Billing: Yes ([id number]) Assessment & Plan Assessment & Plan (1) Migraine: Code(s): G43.909 - Migraine, unspecified, not intractable, without status migrainosus Category: Medical Qualifiers: Migraine type: unspecified Status migrainosus presence: without status migrainosus Intractability: not intractable Qualified Code(s): G43.909 - Migraine, unspecified, not intractable, without status migrainosus Plan: The patient presented with a severe migraine for the last two days, which has been unresponsive to Fioricet. An in-office injection of Toradol and Decadron was administered to alleviate the acute symptoms by reducing inflammation. A prescription for Toradol tablets will be sent, with instructions to not take them concurrently with ibuprofen. He was also provided with a few pills of an anti-nausea medication to take at bedtime. Immediate, non-fasting blood work including a CBC and chemistry panel was ordered to rule out underlying causes such as anemia or electrolyte imbalances (low magnesium or potassium). (2) Prediabetes: Code(s): R73.03 - Prediabetes Category: Medical Plan: The patient's A1c has improved to 6.1% from 6.3%, indicating good control in his prediabetic state. He will continue current management and will have labs repeated at his next visit. (3) CKD (chronic kidney disease): Code(s): N18.9 - Chronic kidney disease, unspecified Category: Medical Plan: The patient has a history of chronic kidney disease, which appears to be stable. Kidney function will be monitored with a comprehensive metabolic panel during his next labs. (4) Hypothyroid: Code(s): E03.9 - Hypothyroidism, unspecified Category: Medical Plan: A TSH level from March was elevated at 4.44, and a requested six-week follow-up lab was not performed. A non-fasting lab order to repeat the thyroid test was placed, to be completed at his convenience, as this could be contributing to his headaches. (5) Preventative health care: Code(s): Z00.00 - Encounter for general adult medical examination without abnormal findings Category: Medical Plan: The patient is due for a physical exam as it has been approximately one year since his last one. He will schedule his next six-month follow-up as a physical. Comprehensive labs, including a CBC and CMP, will be ordered a week before that appointment. Plan Plan Patient was informed and verbally consented to the use of an ambient scribe for clinic note documentation during this visit. 1. Migraine The patient presented with a severe migraine for the last two days, which has been unresponsive to Fioricet. An in-office injection of Toradol and Decadron was administered to alleviate the acute symptoms by reducing inflammation. A prescription for Toradol tablets will be sent, with instructions to not take them concurrently with ibuprofen. He was also provided with a few pills of an anti-nausea medication to take at bedtime. Immediate, non-fasting blood work including a CBC and chemistry panel was ordered to rule out underlying causes such as anemia or electrolyte imbalances (low magnesium or potassium). 2. Prediabetes The patient's A1c has improved to 6.1% from 6.3%, indicating good control in his prediabetic state. He will continue current management and will have labs repeated at his next visit. 3. Chronic Kidney Disease The patient has a history of chronic kidney disease, which appears to be stable. Kidney function will be monitored with a comprehensive metabolic panel during his next labs. 4. Hypothyroidism A TSH level from March was elevated at 4.44, and a requested six-week follow-up lab was not performed. A non-fasting lab order to repeat the thyroid test was placed, to be completed at his convenience, as this could be contributing to his headaches. 5. Preventive Care The patient is due for a physical exam as it has been approximately one year since his last one. He will schedule his next six-month follow-up as a physical. Comprehensive labs, including a CBC and CMP, will be ordered a week before that appointment. Discussion Notes I explained to the patient that he is in for his six-month follow-up and noted his A1c has improved from 6.3 to 6.1. We discussed his acute complaint of a migraine that has lasted for two days and has not responded to Fioricet. After confirming he had no stroke-like symptoms or recent head injury, I proposed an injection of Toradol and Decadron to help with inflammation and pain. I mentioned this is a common cocktail used in emergency settings for severe headaches. The patient consented, and the injection was administered in his left arm. I reviewed his medication list and he confirmed no refills were needed. We reviewed a note from his specialist, Helene Thomas, regarding his ongoing headaches, a previous incomplete MRI, and a recommendation to try Ajovy, which he was hesitant about. I offered to prescribe Toradol in pill form for him to take home if the injection proves effective, reminding him not to mix it with ibuprofen. I also explained that his elevated TSH from a previous lab could be contributing to his headaches and ordered a repeat thyroid test, along with a CBC and chemistry panel, to be done soon. We planned for his next visit in six months to be his annual physical, and I advised him to call a week prior for me to place the order for his complete labs. Orders: Orders AMB Hemoglobin A1c Today R73.03 - Prediabetes Magnesium Today Z00.00 - Encounter for general adult medical examination without abnormal findings AMB Ketorolac Injection Today G43.909 - Migraine, unspecified, not intractable, without status migrainosus, G44.81 - Hypnic headache Injection-Dexamethasone Today G43.909 - Migraine, unspecified, not intractable, without status migrainosus Complete Blood Count no Diff Today Z00.00 - Encounter for general adult medical examination without abnormal findings Comprehensive Met. Panel Today Z00.00 - Encounter for general adult medical examination without abnormal findings Medications: New ketorolac maximum total duration of 5 days from all oral, intranasal, or parenteral formulations 10 mg PO Q8H 15 tabs 3RF 5 days metoclopramide HCl (Reglan) 10 mg PO Q6H PRN 30 tabs 1RF nausea and vomiting Patient Instructions: Patient Instructions - You received an injection of Toradol (a strong anti-inflammatory) and Decadron (a steroid) in your left arm to help with your current migraine. - I have sent a prescription for Toradol pills to your pharmacy. - Do not take this medication with ibuprofen, as they are the same type of drug. - You have been given a couple of pills for nausea to take at bedtime if needed. - Please go to the lab to get blood work done to check your thyroid levels, blood count, and chemistry panel. - You do not need to fast for these tests. - Come back for a follow-up appointment in six months for your annual physical exam. - Please call the office one week before your physical so I can order the necessary comprehensive blood work. - Continue all your other current medications as prescribed.
[2025-09-05 13:54] VITALS: BP 168/78; PULSE 60; RESP 16; TEMP 36.7; O2SAT 99; BMI 46.8
== END 2025-09-05 14:41 | disposition home or self-care (01) ==
LOC: HO.HMCSH 13:43
PROVIDERS: PCP Physician Assistant Medical; Visit Provider Physician Assistant Medical
DX: G43.909 Migraine, unspecified, not intractable, without status migrainosus (principal); R73.03 Prediabetes; N18.9 Chronic kidney disease, unspecified; E03.9 Hypothyroidism, unspecified; Z00.00 Encounter for general adult medical examination without abnormal findings; G44.81 Hypnic headache

== ENCOUNTER → 2025-09-05 13:43 | Outpatient (BNVA) | payer OTHER, SELFPAY | PROVIDERS: PCP Physician Assistant Medical; Visit Provider Physician Assistant Medical | DX: Z13.31 Encounter for screening for depression (principal); G43.909 Migraine, unspecified, not intractable, without status migrainosus; G44.81 Hypnic headache; R73.03 Prediabetes | CPT/HCPCS: 83036; 96127; 96372; J1885 ==